=== PATIENT | female | born 1955 | race Caucasian/White ===

== ENCOUNTER 2019-07-19 11:07 | Outpatient (RCR) | payer MEDICARE, SELFPAY ==
[2019-07-19 11:35] LABS: INR 1.9; Prothrombin Time 19.9 Seconds (9.64-11.0)
== END 2019-10-17 23:59 | disposition home or self-care (01) ==
LOC: CHSLAB 11:07
PROVIDERS: Visit Provider Family Medicine Adolescent Medicine
DX: Z79.01 Long term (current) use of anticoagulants (principal)
CPT/HCPCS: 36415; 85610

== ENCOUNTER 2019-10-19 12:46 | Outpatient (RCR) | payer MEDICARE, SELFPAY ==
[2019-10-19 13:57] LABS: INR 1.8; Prothrombin Time 18.6 Seconds (9.64-11.0)
== END 2020-01-17 23:59 | disposition home or self-care (01) ==
LOC: CHSLAB 12:46
PROVIDERS: PCP Family Medicine Adolescent Medicine; Visit Provider Family Medicine Adolescent Medicine
DX: Z79.01 Long term (current) use of anticoagulants (principal)
CPT/HCPCS: 36415; 85610

== ENCOUNTER 2020-03-07 12:44 | Observation (INO) | payer MEDICARE, OTHER, SELFPAY ==
[2020-03-07] VITALS (7 sets, daily range): BP systolic 126–174; BP diastolic 72–92; PULSE 90–111; RESP 18–28; TEMP 36.2–36.8; O2SAT 94–97; BMI 37.3
--- NOTE | ~2020-03-07 | XR_ITS ---
XR chest 1V portable DATE: 03/07/2020 13:25 INDICATION: Shortness of breath, cough, right-sided chest pain TECHNIQUE: Portable AP chest on 03/07/2020 at 1328 hours COMPARISON: 11/06/2017 portable AP chest at 2113 hours FINDINGS: Normal heart size. No hilar or mediastinal enlargement. Mild infiltrate or atelectasis is s uggested at the lung bases. The lungs otherwise appear clear. No pleural effusion or pulmonary vascul ar congestion or pneumothorax. There is mild dextroscoliosis and degenerative spurring of the thoracic spine. IMPRESSION: Mild infiltrate or atelectasis in the lower lung zones Reviewed, dictated and finalized at location A.
--- NOTE | 2020-03-07 12:58 | ED.SOB ---
HPI - SOB/Dyspnea General Chief Complaint: Chest Pain Stated Complaint: cant breath heaviness in the chest right lung area Time Seen by Provider: 03/07/20 13:00 Source: patient Mode of arrival: ambulatory Limitations: no limitations History of Present Illness HPI Narrative: 64-year-old woman comes in today complaining of chest pain is worse with a deep breath cough and fullness in her right lower chest. Her symptoms are gradually getting worse. She is now having more shortness of breath with any exertion. Patient states that she has been treated for these symptoms with 2 courses of antibiotics since it started a month ago. She states that she does know if she has had fever but states that she has nausea. She has had some intermittent vomiting as well. she states that she was tested for SARS-CoV-2 on February 23 and it was negative. States the chest pain has been present for the last ten days. She said it is more or less constant and feel like someone is sitting on her chest. She states she last had a stress test in 2012. MD elicited complaint: shortness of breath, cough, pain with inspiration and chest pain Onset (ago): week(s) (4) Context: recent illness Timing: constant Severity: severe Exacerbating factors: exertion, coughing and inspiration Relieving factors: nothing Associated symptoms: pain with inspiration, cough, wheezing, orthopnea and nausea/vomiting Treatment prior to arrival: none Related Data Home oxygen amount: none Home Medications Medication Instructions Recorded Confirmed alprazolam 0.5 mg PO QID 03/07/20 03/07/20 calcium carbonate [Calcium 600] 1,200 mg PO DAILY 03/07/20 03/07/20 fluoxetine 20 mg PO DAILY 03/07/20 03/07/20 gabapentin 800 mg PO QID 03/07/20 03/07/20 hydrocodone-acetaminophen 1 - 2 tablet PO QID 03/07/20 03/07/20 [id number] acid-lutein [Centrum 1 tablet PO DAILY 03/07/20 03/07/20 Silver] progesterone micronized 200 mg PO DAILY 03/07/20 03/07/20 quetiapine 600 mg PO 03/07/20 03/07/20 warfarin 2.5 mg PO DAILY 03/07/20 03/07/20 zolpidem [Ambien] 10 mg PO 03/07/20 03/07/20 Allergies Allergy/AdvReac Type Severity Reaction Status Date / Time Contrast Media Allergy Unknown N/V, Uncoded 04/21/19 10:23 HEADACHE Review of Systems Constitutional: Constitutional: Reports chills, Reports fatigue, Reports fever(s) and Reports weakness Eyes: Eyes: Denies change in vision and Denies photophobia ENT: Denies dysphagia, Denies nasal congestion and Denies sore throat Cardiovascular: Cardiovascular: Reports chest pain, Reports rapid heart rate and Denies radiating jaw, neck or arm pain Respiratory: Respiratory: Reports as per HPI, Reports chest congestion, Reports cough, Reports dyspnea and Reports wheezing Gastrointestinal: Gastrointestinal: Denies abdominal pain, Denies diarrhea, Reports nausea and Reports vomiting Genitourinary: Genitourinary: Denies hematuria, Denies nocturia and Denies dysuria Musculoskeletal: Musculoskeletal: Reports back pain ( Chronic), Denies arthralgias and Denies joint swelling Integumentary/Breasts: Skin/Breast: Denies pruritus, Denies erythema and Denies rash Neurologic: Denies vertigo, Denies dizziness and Denies syncope Psychiatric: Psychiatric: Denies anxiety and Denies depression Hematologic/Lymphatic: Hematologic/Lymphatic: Denies easy bleeding and Denies easy bruising Allergic/Immunologic: Allergic/Immunologic: Denies lip swelling and Reports wheezing PMFSH Past Medical History Medical History Back pain Chronic, continuous use of opioids DVT (deep venous thrombosis) Hypertension Pulmonary embolus Surgical History Surgical History H/O rotator cuff surgery H/O thyroidectomy H/O tubal ligation History of appendectomy History of arthroplasty of right knee History of bladder suspension procedure Previous back surgery S/P bilater
--- NOTE | 2020-03-07 12:59 | ECG_ITS ---
Measurements Intervals [place] Rate: 117 P: 70 KS: 197 QRS: 64 QRSD: 92 T: 69 QT: 323 QTc: 451 Interpretive Statements SINUS TACHYCARDIA ANTEROSEPTAL INFARCT, AGE INDETERMINATE BASELINE WANDER- I, II, III, AVR, AVL, AVF, V4-V6 ABNORMAL ECG Electronically Signed On 03-07-2020 13:46:06 CDT by Ricardo Beck D.O.
[2020-03-07 13:24] LABS: Basophils Absolute Auto 0.04 K/mm3 (0.00-0.10); Basophils Percent Auto 0.6 % (0.0-1.0); Eosinophils Absolute Auto 0.07 K/mm3 (0.02-0.50); Eosinophils Percent Auto 1.1 % (1.0-6.0); Hematocrit 37.3 % (35.0-49.0); Hemoglobin 12.5 g/dL (12.0-15.0); Immature Granulocyte Absolute 0.01 K/mm3 (0.00-0.00); Immature Granulocyte Percent A 0.2 % (0.0-0.0); Lymphocytes Absolute Auto 2.57 K/mm3 (1.10-4.50); Lymphocytes Percent Auto 40.6 % (18.0-42.0); Mean Corpuscular HGB Conc 33.5 g/dL (32.0-36.0); Mean Corpuscular Hemoglobin 30.8 pg (27.0-31.0); Mean Corpuscular Volume 91.9 fL (78.0-102.0); Mean Platelet Volume 10.7 fl (9.2-11.8); Monocytes Absolute Auto 0.47 K/mm3 (0.10-0.90); Monocytes Percent Auto 7.4 % (2.0-11.0); Neutrophils Absolute Auto 3.2 K/mm3 (1.7-7.2); Neutrophils Percent Auto 50.1 % (50.0-70.0); Platelet Count Result 299 K/mm3 (150-420); Red Blood Count 4.06 M/mm3 (4.20-5.40); Red Cell Distribution Width 13.8 % (11.6-14.4); White Blood Count 6.3 K/mm3 (4.8-10.8)
[2020-03-07 13:40] LABS: D Dimer 0.28 mg/L (0.19-0.50); INR 1.7; Partial Thromboplastin Time 38.4 SEC (22.3-31.6); Prothrombin Time 17.2 Seconds (9.64-11.0)
[2020-03-07 13:41] LABS: Alanine Aminotransferase 31 U/L (14-59); Albumin Level 3.4 g/dL (3.4-5.0); Alkaline Phosphatase 90 U/L (46-116); Anion Gap 12.9 mmol/L (7-16); Aspartate Amino Transferase 23 U/L (15-37); Bilirubin,Total 0.3 mg/dL (0.00-1.00); Blood Urea Nitrogen 16 mg/dL (7-18); CRP 2.2 mg/dL (0.0-0.9); Calcium 9.3 mg/dL (8.5-10.1); Carbon Dioxide 29 mmol/L (21-32); Chloride 103 mmol/L (98-108); Estimated CRCL calculation 56 ml/min; Estimated Glomerular Filt Rate 49; Glucose 147 mg/dL (70-99); Osmolality Calculated 296 mOsm/kg (285-295); Potassium 3.9 mmol/L (3.5-5.1); Sodium 141 mmol/L (136-145); Total Protein 7.6 g/dL (6.4-8.2)
[2020-03-07 13:42] LABS: Troponin I < 0.02 ng/mL (0.00-0.056)
[2020-03-07 13:43] LABS: BNP 9 pg/mL (0-100); Lactic Acid Reflex 3.3 mmol/L (0.4-2.0)
[2020-03-07 13:44] LABS: Add Urine Microscopic? YES; Appearance Urine Sl Cloudy (Clear); Bilirubin Urine Negative (Negative); Blood Urine Negative (Negative); Color Urine Yellow (Yellow); Glucose Urine UA Negative (Negative); Ketones Urine Negative (Negative); Leukocyte Esterase Ur 1+ LEU/UL (Negative); Nitrate Urine Negative (Negative); Protein Urine Negative (Negative); Specific Grav Ur 1.025 (1.010-1.020); Urobilinogen Urine 0.2 mg/dL (0.2-1.0); pH Urine 5.5 (5.0-8.0)
[2020-03-07 13:51] LABS: RBC Urine 0-2 /hpf (0-2); Squamous Epithelial Cell Urine Many /hpf (Few)
[2020-03-07 13:52] LABS: Bacteria Urine 3+ /hpf; Renal Epithelial Cells Urine Moderate /hpf
[2020-03-07] MEDS: ASPIRIN 81 MG CHEWABLE TABLET 324 MG PO (14:02)
[2020-03-07] MEDS: SODIUM CHLORIDE 0.9% IV 1,000 ML 999 ML IV CONT (14:03)
--- NOTE | 2020-03-07 16:03 | PC.NURSE ---
Admitted to observation bed for rule out UT, chest pain ongoing for over a week, has been covid tested negative first week of February and had a round of abx by PMD, no improvment, dry cough, feels sob, no distress noted, no edema noted, color pale, skin warm and dry, pain in right side of chest worse with deep breath and cough, no n/v/d, oriented to room and hosptial environment
[2020-03-07 16:18] LABS: Reflex Lactic Acid Yes or No Add Lactic
[2020-03-07] MEDS: GABAPENTIN 400 MG CAPSULE 800 MG PO ×2 (17:15→20:57)
[2020-03-07] MEDS: DOXYCYCLINE HYCLATE 100 MG TABLET PO ×2 (17:15→20:58)
[2020-03-07] MEDS: SODIUM CHLORIDE 0.9% IV 1,000 ML 100 ML IV CONT (17:15)
[2020-03-07] MEDS: predniSONE 20 MG TABLET 40 MG PO (17:15)
[2020-03-07] MEDS: ALPRAZolam 0.5 MG TABLET PO ×2 (17:16→20:58)
--- NOTE | 2020-03-07 17:30 | PC.NURSE ---
EAting with no dsitress, cough occassional non productive,
[2020-03-07] MEDS: QUEtiapine FUMARATE 100 MG TABLET 600 MG PO (20:56)
[2020-03-07] MEDS: ZOLPIDEM TARTRATE 5 MG TABLET 10 MG PO (20:57)
[2020-03-07] MEDS: ALBUTEROL SULFATE (*SP) INHALER 4 PUFF INHALATION (20:58)
--- NOTE | 2020-03-07 21:17 | PC.NURSE ---
pt has no c/o sob at this time, requests pain med for chronic back pain, given two pillows and fan brought from home by , lab here for draw
[2020-03-07 21:22] LABS: Lactic Acid Reflex 2.2 mmol/L (0.4-2.0); Troponin I < 0.02 ng/mL (0.00-0.056)
--- NOTE | 2020-03-07 22:30 | PC.NURSE ---
pt is sinus tach on monitor, no s/sx of distress, resting in bed
[2020-03-07 22:45] LABS: SARS-CoV-2 RNA PCR Negative
--- NOTE | 2020-03-07 23:45 | PC.NURSE ---
Pt moved to rm 227. Covid 19 Neg.
[2020-03-08] VITALS: BP 142/91; PULSE 114; RESP 20; TEMP 35.9; O2SAT 94
--- NOTE | 2020-03-08 01:24 | PC.NURSE ---
Pt requested food to eat. Stated she was hungry. Reap deep & even. No NV. Denies cheast pain Telemetry SR, ST. No cough heard @ this time.
[2020-03-08 02:02] LABS: Troponin I < 0.02 ng/mL (0.00-0.056)
[2020-03-08 03:53] VITALS: BP 121/76; PULSE 96; RESP 20; TEMP 36.4; O2SAT 93
--- NOTE | 2020-03-08 03:55 | PC.NURSE ---
Sleeping, resp even. VS taken. IV continues 100ml hr. Telemetry continues.
[2020-03-08] MEDS: SODIUM CHLORIDE 0.9% IV 1,000 ML 100 ML IV CONT (04:05)
[2020-03-08 05:27] LABS: Basophils Absolute Auto 0.02 K/mm3 (0.00-0.10); Basophils Percent Auto 0.2 % (0.0-1.0); Hematocrit 35.8 % (35.0-49.0); Hemoglobin 11.8 g/dL (12.0-15.0); Immature Granulocyte Absolute 0.03 K/mm3 (0.00-0.00); Immature Granulocyte Percent A 0.4 % (0.0-0.0); Lymphocytes Absolute Auto 1.78 K/mm3 (1.10-4.50); Lymphocytes Percent Auto 21.6 % (18.0-42.0); Mean Corpuscular Hemoglobin 30.6 pg (27.0-31.0); Mean Corpuscular Volume 92.7 fL (78.0-102.0); Mean Platelet Volume 10.8 fl (9.2-11.8); Monocytes Absolute Auto 0.65 K/mm3 (0.10-0.90); Monocytes Percent Auto 7.9 % (2.0-11.0); Neutrophils Absolute Auto 5.8 K/mm3 (1.7-7.2); Neutrophils Percent Auto 69.9 % (50.0-70.0); Platelet Count Result 298 K/mm3 (150-420); Red Blood Count 3.86 M/mm3 (4.20-5.40); Red Cell Distribution Width 13.8 % (11.6-14.4); White Blood Count 8.2 K/mm3 (4.8-10.8)
[2020-03-08 05:46] LABS: Alanine Aminotransferase 26 U/L (14-59); Albumin Level 3.1 g/dL (3.4-5.0); Alkaline Phosphatase 78 U/L (46-116); Anion Gap 12.4 mmol/L (7-16); Aspartate Amino Transferase 20 U/L (15-37); Bilirubin,Total 0.4 mg/dL (0.00-1.00); Blood Urea Nitrogen 17 mg/dL (7-18); Calcium 9.2 mg/dL (8.5-10.1); Carbon Dioxide 27 mmol/L (21-32); Chloride 106 mmol/L (98-108); Estimated CRCL calculation 63 ml/min; Estimated Glomerular Filt Rate 54; Glucose 118 mg/dL (70-99); Osmolality Calculated 294 mOsm/kg (285-295); Potassium 4.4 mmol/L (3.5-5.1); Sodium 141 mmol/L (136-145); Total Protein 6.9 g/dL (6.4-8.2)
[2020-03-08 05:51] LABS: Troponin I < 0.02 ng/mL (0.00-0.056)
[2020-03-08] MEDS: ALBUTEROL SULFATE (*SP) INHALER 4 PUFF INHALATION (06:26)
[2020-03-08 07:35] VITALS: BP 142/75; PULSE 88; RESP 18; TEMP 36; O2SAT 95
[2020-03-08] MEDS: GABAPENTIN 400 MG CAPSULE 800 MG PO (09:09)
[2020-03-08] MEDS: predniSONE 20 MG TABLET 40 MG PO (09:09)
[2020-03-08] MEDS: FLUoxetine HCL 10 MG CAPSULE 20 MG PO (09:10)
[2020-03-08] MEDS: CALCIUM CARBONATE (OSCAL) 500 MG TABLET 1000 MG PO (09:10)
[2020-03-08] MEDS: THERAPEUTIC MULTIVITAMINS/MINERALS TAB (*BKC) 1 TABLET PO (09:11)
[2020-03-08] MEDS: WARFARIN (*PBKC) 2.5 MG TABLET PO (09:11)
[2020-03-08] MEDS: DOXYCYCLINE HYCLATE 100 MG TABLET PO (09:11)
[2020-03-08] MEDS: ALPRAZolam 0.5 MG TABLET PO (09:12)
--- NOTE | 2020-03-08 11:13 | PM.SD ---
Same Day Admit/Disch: HPI History of Present Illness Chief complaint: ACS (R/O GA) Narrative: Abi Campbell is a 64 year old female That presented to the ED yesterday with complaints of and uncontrollable cough with chest discomfort. Patient has a past medical history of back pain, DVTs, hypertension, PE and chronic continuous use of opioids. according to patient she visited her primary care physician's office Dr. Brennan complaining of cough chest discomfort at that time she was given azithromycin x6 days. she called her primary care physician back and informed him that symptoms have worsened. At that time he put on Levaquin times 10 days. Before she could complete the Levaquin should return to the [facility] ED. Patient was admitted to rule out chest pains. vital signs 142/75, 88, 18, 96.8, 95% on air While in the ED troponins was collected negative x3, patient's creatinine was slightly elevated not significant. UA did indicate leukocytes WBCs and bacteria, her COVID-19 was negative her chest x-ray was unremarkable, lactic acid slightly increased at 2.2 a UA and blood culture were collected in her EKG indicated sinus tach with a heart rate of 117. Patient was given albuterol, with steroids and antibiotic. Her condition has improved today. Patient able to tolerate all meals , slept well and ambulate at baseline. Patient denies SOB, CP, palpitation, extremity numbness, lightheadness, dizziness, constipation, diarrhea, chills or fever. Patient agree that they are ready for discharge and discharge plan. [facility] Past Medical History Medical History Back pain Chronic, continuous use of opioids DVT (deep venous thrombosis) Hypertension Pulmonary embolus Surgical History Surgical History H/O rotator cuff surgery H/O thyroidectomy H/O tubal ligation History of appendectomy History of arthroplasty of right knee History of bladder suspension procedure Previous back surgery S/P bilateral cataract extraction S/P cholecystectomy S/P insertion of intrathecal pump removed 2012 Spinal cord stimulator status removed 2012 Family History Family History (Updated 10/13/14 @ 13:44 by DOCTOR UNKNOWN) Other Cerebrovascular accident Diabetes mellitus Family history of cardiovascular disease Family history of malignant neoplasm Family history of tuberculosis Hypertension Social History Social History (Updated 03/07/20 @ 13:24 by Vimal Berkowitz MD) Smoking status: Never smoker Second hand tobacco smoke exposure: No Alcohol intake: never Substance use: never Living arrangements: with family Gender identity (if verbalized by the patient): Female Spiritual care concerns: No Same Day Admit/Disch: Med Pre-admit Medications Home Medications Medication Instructions Recorded Confirmed Type alprazolam 0.5 mg PO QID 03/07/20 03/07/20 History calcium carbonate [Calcium 600] 1,200 mg PO DAILY 03/07/20 03/07/20 History fluoxetine 20 mg PO DAILY 03/07/20 03/07/20 History gabapentin 800 mg PO QID 03/07/20 03/07/20 History hydrocodone-acetaminophen 1 - 2 tablet PO QID 03/07/20 03/07/20 History [id number] acid-lutein [Centrum 1 tablet PO DAILY 03/07/20 03/07/20 History Silver] progesterone micronized 200 mg PO DAILY 03/07/20 03/07/20 History quetiapine 600 mg PO HS 03/07/20 03/07/20 History warfarin 2.5 mg PO DAILY 03/07/20 03/07/20 History zolpidem [Ambien] 10 mg PO HS 03/07/20 03/07/20 History Exam Narrative: Exam Narrative: General: A well-developed, well-nourished male sitting up in bed no acute distress. HEENT: Normocephalic, atraumatic. PERRL, EOMI. Sclerae anicteric. Oral mucosa moist. Oropharynx clear. Neck: Supple. Respiratory: Lungs are clear to auscultation bilaterally. Cardiovascular: Regular rate and rhythm with S1-S2. Gastrointestinal: Abdomen is soft, nontender, and nondistend
--- NOTE | 2020-03-08 12:35 | PC.NURSE ---
discharged to home with discharge instructions, belongings returned, inhaler sent home, denies questions
--- NOTE | 2020-03-09 06:57 | P.PNCROSS_ITS ---
Event Note Event Note Event Note: For this patient encounter, I reviewed the THREAD LASTER or PA documentation, treatment plan, and medical decision making; and I had [id number] time with this patient.
--- NOTE | 2020-03-09 06:57 | PM.EVENT ---
Event Note Event Note Event Note: For this patient encounter, I reviewed the BELL MAKER or PA documentation, treatment plan, and medical decision making; and I had [id number] time with this patient.
== END 2020-03-08 12:35 | disposition home or self-care (01) ==
LOC: CHSED 14:55 → CHS2ND 15:08
PROVIDERS: Admitting Provider Emergency Medicine; Emergency Provider Emergency Medicine; PCP Family Medicine Adolescent Medicine; Visit Provider Emergency Medicine
DX: J40 Bronchitis, not specified as acute or chronic (principal); E86.0 Dehydration; N39.0 Urinary tract infection, site not specified; R06.02 Shortness of breath; I10 Essential (primary) hypertension; M54.9 Dorsalgia, unspecified; F11.90 Opioid use, unspecified, uncomplicated; Z20.828 Contact with and (suspected) exposure to other viral communicable diseases; Z79.01 Long term (current) use of anticoagulants; Z86.718 Personal history of other venous thrombosis and embolism; Z86.711 Personal history of pulmonary embolism
CPT/HCPCS: 36415; 71045; 80053; 81001; 83605; 83880; 84484; 85025; 85380; 85610; 85730; 86140; 87040; 87086; 87635; 93005; 96360; 96361; 99285; A9270; C9803; G0378; J7030; J7512; U0003

== ENCOUNTER 2020-03-11 10:28 | Outpatient (CLI) | payer MEDICARE, SELFPAY ==
[2020-03-11 10:48] LABS: Hematocrit 38.7 % (35.0-49.0); Hemoglobin 12.7 g/dL (12.0-15.0)
[2020-03-11 10:55] LABS: INR 1.8; Prothrombin Time 18.1 Seconds (9.64-11.0)
[2020-03-11 11:24] LABS: Anion Gap 13.2 mmol/L (7-16); Blood Urea Nitrogen 29 mg/dL (7-18); Calcium 9.3 mg/dL (8.5-10.1); Carbon Dioxide 27 mmol/L (21-32); Chloride 104 mmol/L (98-108); Estimated Glomerular Filt Rate 37; Glucose 178 mg/dL (70-99); Osmolality Calculated 299 mOsm/kg (285-295); Potassium 4.2 mmol/L (3.5-5.1); Sodium 140 mmol/L (136-145)
== END 2020-03-11 10:29 | disposition home or self-care (01) ==
LOC: CHSLAB 10:33
PROVIDERS: PCP Family Medicine Adolescent Medicine; Visit Provider Nurse Practitioner
DX: Z79.01 Long term (current) use of anticoagulants (principal); Z86.711 Personal history of pulmonary embolism; R73.01 Impaired fasting glucose; G62.9 Polyneuropathy, unspecified
CPT/HCPCS: 36415; 80048; 83036; 85014; 85018; 85610

== ENCOUNTER 2020-07-12 09:57 | Outpatient (RCR) | payer MEDICARE, SELFPAY ==
[2020-06-08 16:20] LABS: INR 2.2; Prothrombin Time 21.8 Seconds (9.64-11.0)
[2020-07-12 10:27] LABS: INR 2.1; Prothrombin Time 20.9 Seconds (9.64-11.0)
== END 2020-09-06 23:59 | disposition home or self-care (01) ==
LOC: CHSLAB 09:57
PROVIDERS: PCP Family Medicine Adolescent Medicine; Visit Provider Family Medicine Adolescent Medicine
DX: Z79.01 Long term (current) use of anticoagulants (principal); Z86.711 Personal history of pulmonary embolism
CPT/HCPCS: 36415; 85610

== ENCOUNTER 2020-09-11 12:44 | Outpatient (RCR) | payer MEDICARE, SELFPAY ==
[2020-09-11 13:07] LABS: INR 1.8; Prothrombin Time 19.5 Seconds (9.50-12.10)
== END 2020-12-10 23:59 | disposition home or self-care (01) ==
LOC: CHSLAB 12:44
PROVIDERS: PCP Family Medicine Adolescent Medicine; Visit Provider Family Medicine Adolescent Medicine
DX: Z79.01 Long term (current) use of anticoagulants (principal); Z86.711 Personal history of pulmonary embolism
CPT/HCPCS: 36415; 85610

== ENCOUNTER 2020-11-17 14:31 | Outpatient (CLI) | payer MEDICARE, OTHER, SELFPAY ==
--- NOTE | ~2020-11-17 | XR_ITS ---
EXAMINATION: XR chest 2V 11/17/2020 14:57 INDICATION: Dyspnea. PROCEDURE: 2 view chest COMPARISON: Comparison to multiple prior studies sequentially, with oldest reviewed study dated 02/07. FINDINGS: The lungs are clear. The cardiomediastinal silhouette is within normal limits. There are no pleural effusions. There is no pneumothorax suspected. IMPRESSION: 1: NO ACUTE CARDIOPULMONARY DISEASE. Reviewed, dictated and finalized at location B.
[2020-11-17 14:51] LABS: Basophils Absolute Auto 0.04 K/mm3 (0.00-0.10); Basophils Percent Auto 0.5 % (0.0-1.0); Eosinophils Absolute Auto 0.07 K/mm3 (0.02-0.50); Eosinophils Percent Auto 0.9 % (1.0-6.0); Hematocrit 40.4 % (35.0-49.0); Hemoglobin 13.4 g/dL (12.0-15.0); Immature Granulocyte Absolute 0.02 K/mm3 (0.00-0.00); Immature Granulocyte Percent A 0.2 % (0.0-0.0); Lymphocytes Absolute Auto 3.17 K/mm3 (1.10-4.50); Lymphocytes Percent Auto 38.9 % (18.0-42.0); Mean Corpuscular HGB Conc 33.2 g/dL (32.0-36.0); Mean Corpuscular Volume 90.6 fL (78.0-102.0); Mean Platelet Volume 11.3 fl (9.2-11.8); Monocytes Absolute Auto 0.77 K/mm3 (0.10-0.90); Monocytes Percent Auto 9.4 % (2.0-11.0); Neutrophils Absolute Auto 4.1 K/mm3 (1.7-7.2); Neutrophils Percent Auto 50.1 % (50.0-70.0); Platelet Count Result 238 K/mm3 (150-420); Red Blood Count 4.46 M/mm3 (4.20-5.40); Red Cell Distribution Width 13.4 % (11.6-14.4); White Blood Count 8.2 K/mm3 (4.8-10.8)
[2020-11-17 14:58] LABS: INR 1.6; Prothrombin Time 16.5 Seconds (9.50-12.10)
[2020-11-17 14:59] LABS: Hemoglobin A1C 6.1 % (<5.7)
[2020-11-17 15:21] LABS: Alanine Aminotransferase 50 U/L (14-59); Alkaline Phosphatase 97 U/L (46-116); Anion Gap 9 mmol/L (8-16); Aspartate Amino Transferase 26 U/L (15-37); Bilirubin,Total 0.4 mg/dL (0.00-1.00); Blood Urea Nitrogen 19 mg/dL (7-18); Calcium 9.7 mg/dL (8.5-10.1); Carbon Dioxide 32 mmol/L (21-32); Chloride 105 mmol/L (98-108); Estimated Glomerular Filt Rate 52; Glucose 125 mg/dL (70-99); Osmolality Calculated 305 mOsm/kg (285-295); Potassium 4.4 mmol/L (3.5-5.1); Sodium 146 mmol/L (136-145); Thyroid Stimulating Hormone 0.97 uIU/mL (0.36-3.74); Total Protein 7.4 g/dL (6.4-8.2)
[2020-11-17 15:50] LABS: Erythrocyte Sedimentation Rate 11 mm/hr (0-20)
== END 2020-11-17 14:32 | disposition home or self-care (01) ==
LOC: CHSLAB 14:34
PROVIDERS: PCP Family Medicine Adolescent Medicine; Visit Provider Family Medicine Adolescent Medicine
DX: R06.00 Dyspnea, unspecified (principal); R53.83 Other fatigue; N21.9 Calculus of lower urinary tract, unspecified; R73.01 Impaired fasting glucose; Z79.01 Long term (current) use of anticoagulants; Z86.711 Personal history of pulmonary embolism
CPT/HCPCS: 36415; 71046; 80053; 83036; 84443; 85025; 85610; 85652

== ENCOUNTER 2020-12-14 09:33 | Outpatient (CLI) | payer MEDICARE, OTHER, SELFPAY ==
[2020-12-14 10:05] LABS: INR 1.7; Prothrombin Time 20.1 Seconds (11.1-14.7)
[2020-12-14 10:20] LABS: Troponin I < 0.012 ng/mL (0.000-0.034)
== END 2020-12-14 09:34 | disposition home or self-care (01) ==
LOC: ANHLAB 09:39
PROVIDERS: PCP Family Medicine Adolescent Medicine; Visit Provider Internal Medicine Cardiovascular Disease
DX: R07.89 Other chest pain (principal); Z79.01 Long term (current) use of anticoagulants
CPT/HCPCS: 36415; 84484; 85610

== ENCOUNTER → 2020-12-18 04:39 | Outpatient (CLI) | payer MEDICARE, OTHER, SELFPAY ==
[2020-12-18 19:57] LABS: SARS-CoV-2 RNA PCR Negative
== END ==
PROVIDERS: PCP Family Medicine Adolescent Medicine; Visit Provider Internal Medicine Cardiovascular Disease
DX: Z01.812 Encounter for preprocedural laboratory examination (principal); Z20.822 Contact with and (suspected) exposure to COVID-19
CPT/HCPCS: C9803; U0003; U0005

== ENCOUNTER 2020-12-21 01:26 | Day surgery (SDC) | payer MEDICARE, OTHER, SELFPAY ==
[2020-12-20 18:56] VITALS: BMI 36.6
[2020-12-21] VITALS (10 sets, daily range): BP systolic 117–143; BP diastolic 73–87; PULSE 79–98; RESP 11–21; TEMP 35.7–36.2; O2SAT 90–98; BMI 36.8
[2020-12-21 08:04] LABS: Basophils Percent Auto 0.1 % (0.2-1.2); Hematocrit 41.6 % (37.0-47.0); Hemoglobin 13.9 g/dL (12.0-15.0); Immature Granulocyte Absolute 0.04 K/mm3 (0.00-0.031); Immature Granulocyte Percent A 0.5 % (0-0.5); Lymphocytes Absolute Auto 1.04 K/mm3 (0.9-3.2); Lymphocytes Percent Auto 12.6 % (18.3-44.2); Mean Corpuscular HGB Conc 33.4 g/dl (32-36); Mean Corpuscular Hemoglobin 30.3 pg (26-34); Mean Corpuscular Volume 90.8 fl (80-100); Mean Platelet Volume 11.1 fl (7.4-10.4); Monocytes Absolute Auto 0.1 K/mm3 (0.1-0.6); Monocytes Percent Auto 1.3 % (2.6-8.5); Neutrophils Absolute Auto 7.1 K/mm3 (1.3-6.7); Neutrophils Percent Auto 85.5 % (45.5-73.1); Platelet Count Result 249 k/mm3 (150-375); Red Blood Count 4.58 M/mm3 (4.2-5.4); Red Cell Distribution Width 13.3 % (11.5-14.5); White Blood Count 8.3 K/mm3 (4.5-10.0)
[2020-12-21 08:13] LABS: Anion Gap 9 mmol/L (8-16); Blood Urea Nitrogen 21 mg/dL (7-17); Calcium 10.2 mg/dL (8.4-10.2); Carbon Dioxide 28 mmol/L (22-30); Chloride 105 mmol/L (98-107); Estimated CRCL calculation 70 ml/min; Estimated Glomerular Filt Rate > 60; Glucose 159 mg/dL (65-105); Potassium 4.5 mmol/L (3.4-5.0); Sodium 142 mmol/L (137-145)
[2020-12-21 08:21] LABS: Prothrombin Time 13.8 Seconds (11.1-14.7)
--- NOTE | 2020-12-21 10:28 | P.PCNCC_ITS ---
Cardiac Cath Procedure Note Date of procedure:: 12/21/20 Performing physician:: Krzysztof Agrawal MD date of service December 21, 2020 Indication:: chest pain and abnormal stress test Brief clinical history:: This is 65-year-old female with past history of DVT, anxiety was evaluated for chest pain. underwent stress testing that was abnormal with ischemia in the anterior wall. Procedure Procedure performed:: 1-Moderate sedation that started at 9:47 a.m. and ended at at 10:11 a.m. with total duration 24 minutesb using 2mg of Versed and 50mcg fentanyl. The registered nurse was oliverio griggs 2-Selective left and right coronary angiogram. 3-Left heart catheterization with measurement of LVEDP and measurement of gradient across aortic valve. 3- LV angiogram. 4-Right common femoral arterial angiogram. 5-Deployment of 6 Azerbaijani Angio-Seal. Sedation/Medication given:: Moderate sedation. Access site:: Right common femoral artery. Estimated blood loss:: 10cc Procedure note:: After informed consent patient was brought in to phlebotomist lab assistant with the was draped and prepped in usual manner. Moderate sedation was given and the right groin was infiltrated using 1% lidocaine. Five Azerbaijani sheath was obtained using micropuncture needle and the modified Seldinger technique. Selective left coronary angiogram was done using JL4 catheter with the tip of the catheter placed in the left main coronary artery. Selective right coronary angiogram was done using JR4 catheter with the tip of the catheter placed to the right coronary artery. After that 5 Azerbaijani pigtail catheter was advanced across the aortic valve into the left ventricle with measurement of LVEDP and measurement of gradient across aortic valve. LV angiogram was done as well. Right common femoral arterial angiogram was done. Findings:: 1- left coronary artery is a large artery that divides into large LAD, large circumflex artery. Left main is Free of disease. 2- left anterior descending artery is a large artery that runs and wraps around the apex. It is very large proximally and then tapers smoothly and bifurcates into a large LAD and large Diagonal branch. Ostial diagonal branch 30%. 3- leftcircumflex artery is a large artery And free of disease. Large OM1 and OM2 distally. Free of disease. 4- right coronary artery is Large artery and dominant and free of disease. 5- LVEDP was 25 mm Hgand no gradient across aortic valve. 5- LV angiogram shows normal ejection fraction and normal ascending aorta diameter. 6- opening arterial pressure was 130/80 and closing pressure was 110/70. 7- right femoral artery angiogram shows no significant disease in the right common femoral artery. Conclusion:: Minimal coronary irregularity. Assessment and Plan Additional Plan 1- Continue aggressive risk factor modification for CAD. 2- Arrange for 72 hour Holter monitor to rule out other arrhythmias. Patient has frequent PVCs. The monitor would help quantify the burden of the PVCs. Also rule out AFib.
--- NOTE | 2020-12-21 10:28 | WPDHPUPDATE1 ---
History and Physical Update Update Date/Time: 12/21/20 9 a.m. History and Physical has been reviewed, including an updated exam of the patient. There are NO changes in the patient's condition. Risks, benefits, and alternatives have been discussed and questions answered. Patient agrees to proceed with procedure.
--- NOTE | 2020-12-21 10:28 | WPDMODSED ---
Moderate Sedation Note-Pt Data Patient Data Allergies Allergy/AdvReac Type Severity Reaction Status Date / Time Contrast Media Allergy Unknown N/V, Uncoded 12/20/20 18:39 HEADACHE Home Medications Medication Instructions Recorded Confirmed Type Centrum Silver 1 tablet PO DAILY 03/07/20 12/21/20 History alprazolam 0.5 mg PO QID 03/07/20 12/21/20 History calcium carbonate [Calcium 600] 1,200 mg PO DAILY 03/07/20 12/21/20 History fluoxetine 20 mg PO DAILY 03/07/20 12/21/20 History gabapentin 800 mg PO TID 03/07/20 12/21/20 History hydrocodone-acetaminophen 1 - 2 tablet PO QID 03/07/20 12/21/20 History progesterone micronized 200 mg PO DAILY 03/07/20 12/21/20 History quetiapine 600 mg PO HS 03/07/20 12/21/20 History warfarin 2.5 mg PO DAILY 03/07/20 12/20/20 History zolpidem [Ambien] 10 mg PO HS 03/07/20 12/21/20 History albuterol sulfate 1 puff INHALATION QID PRN #6.7 gm 03/08/20 12/20/20 Rx aspirin [Adult Aspirin EC Low 81 mg PO DAILY 12/20/20 12/21/20 History Strength] mirtazapine 45 mg PO HS 12/20/20 12/21/20 History Current Medications: Active Medications Sodium Chloride (Normal Saline Iv) 500 mls @ 100 mls/hr IV CONT .Q5H MAXIMILIAN Sedation/Anesthesia: No previous sedation/anesthesia problems (including family history). [facility] Past Medical History Medical History Back pain Chronic, continuous use of opioids DVT (deep venous thrombosis) Hypertension Pulmonary embolus Surgical History Surgical History H/O rotator cuff surgery H/O thyroidectomy H/O tubal ligation History of appendectomy History of arthroplasty of right knee History of bladder suspension procedure Previous back surgery S/P bilateral cataract extraction S/P cholecystectomy S/P insertion of intrathecal pump removed 2012 Spinal cord stimulator status removed 2012 Family History Family History Other Cerebrovascular accident Diabetes mellitus Family history of cardiovascular disease Family history of malignant neoplasm Family history of tuberculosis Hypertension Social History Social History Smoking status: Never smoker Second hand tobacco smoke exposure: No Alcohol intake: never Substance use: never Substance use type: does not use Living arrangements: with family Additional living arrangements comments: LIVES W/ , SONYA GUTIÉRREZ. Gender identity (if verbalized by the patient): Female Spiritual care concerns: No Mod Sed Physical Exam Physical Exam Pre Procedural Exam: Normal: Appearance, Eyes, Ears, Nose, Neck, Throat, Airway, Lungs, Heart Size, Heart Rate, Heart Rhythm, Neuro Exam, Abdomen, Liver, Kidneys, Spleen, Breasts, Genitalia, Extremities and Skin Hours since solid foods: 8 Hours since liquid intake: 8 Internal Medicine - PN: Obj Da Vital Signs Vital Signs: Vital Signs - 24 hr 12/21/20 08:31 Temperature 35.7 C L Pulse Rate 94 Respiratory Rate 17 Blood Pressure 128/79 Pulse Oximetry 94 Meds/Results Medications: Active Medications Generic Name Dose Route Start Last Admin Trade Name Freq PRN Reason Stop Dose Admin Sodium Chloride 500 mls @ 100 mls/hr 12/21/20 07:30 Normal Saline Iv IV CONT .Q5H MAXIMILIAN Labs CBC & Chem 7: 12/21/20 07:40 12/21/20 07:40 Labs: Laboratory Results - last 24 hr 12/21/20 12/21/20 12/21/20 07:40 07:40 07:40 WBC 8.3 RBC 4.58 Hgb 13.9 Hct 41.6 MCV 90.8 MCH 30.3 MCHC 33.4 RDW 13.3 Plt Count 249 MPV 11.1 H Immature Gran % (Auto) 0.5 Neut % (Auto) 85.5 H Lymph % (Auto) 12.6 L Blaine % (Auto) 1.3 L Eos % (Auto) 0.0 Baso % (Auto) 0.1 L Lymph # (Auto) 1.04 Blaine # (Auto) 0.1 Eos # (Auto) 0.0 Baso # (Auto) 0.0 Abs Immat Gran
--- NOTE | 2020-12-21 13:50 | SUR.PHASEII ---
Iv d/c'd from right forearm, catheter intact. No redness or swelling at the site. Right groin access site with drsg intact with no signs of redness, swelling, drainage or hematoma. Right pedal pulse remains strong, 3+, as prior to procedure. Discharge instructions reviewed with patient with stated understanding. Pt discharged via wheelchair [facility] for placement of telemetry halter monitor. Pt's spouse is with the patient and will drive the patient home after appointment in Dr Agrawal's office.
== END 2020-12-21 13:45 | disposition home or self-care (01) ==
PROVIDERS: PCP Family Medicine Adolescent Medicine; Visit Provider Internal Medicine Cardiovascular Disease
PROC: 4A023N7 Measurement of Cardiac Sampling and Pressure, Left Heart, Percutaneous Approach (ICD-10-PCS; CPT 93452; principal; 2020-12-21 09:00)
DX: R94.39 Abnormal result of other cardiovascular function study (principal); R07.89 Other chest pain; I49.3 Ventricular premature depolarization; Z86.718 Personal history of other venous thrombosis and embolism; Z79.01 Long term (current) use of anticoagulants; I10 Essential (primary) hypertension; Z86.711 Personal history of pulmonary embolism; Z79.82 Long term (current) use of aspirin; F41.8 Other specified anxiety disorders; R06.00 Dyspnea, unspecified
CPT/HCPCS: 36415; 80048; 85025; 85610; 93458; C1760; C1887; C1894; G0269; J1644; J2250; J3010; J7040

== ENCOUNTER 2021-02-08 09:58 | Outpatient (CLI) | payer MEDICARE, OTHER, SELFPAY ==
--- NOTE | 2021-02-12 12:12 | WPDPFTINT ---
PFT Procedure Performed PFT Procedure Performed Plethysmography (Lung Vol) Spirometry w/o Bronchodil PFT Interpretation DOS: 02/08/2021 REQUESTING: Dr Krzysztof Agrawal REASON FOR TESTING: dyspnea on exertion PULMONARY FUNCTION TESTS results were not completely reproducible as the patient had shortness of breath throughout the testing. DLCO was not obtainable. Patient could not perform of breath hold or generate a strong inspiratory peak flow after multiple attempts with maximal coaching. Spirometry: FEV1 is 30% predicted, 0.8 L severely decreased. FVC is 36% predicted. The FEV1/ FVC ratio was reduced 65% predicted. No bronchodilator was given. Lung volumes: Total lung capacity is reduced to 58% predicted, moderately decreased. Residual volume is 84% predicted. The RV/TLC ratio is increased at 57% consistent with air trapping. The ERV is severely reduced 21% predicted and this is likely due to the elevated body mass index. Airway resistance is increased 175%. Diffusion: DLCO not obtainable. Flow volume loop: Not reproducible. IMPRESSION: Severe obstructive ventilatory impairment with air trapping and moderate restriction. no bronchodilator was given. Results are not reproducible. Patient was not able to perform maneuver for DLCO, could not perform the breath hold or generate adequate inspiratory peak flow. Clinical correlation is advised. Leonila Montelongo MD
== END 2021-02-08 09:59 | disposition home or self-care (01) ==
PROVIDERS: PCP Family Medicine Adolescent Medicine; Visit Provider Internal Medicine Cardiovascular Disease
DX: R06.00 Dyspnea, unspecified (principal); R94.2 Abnormal results of pulmonary function studies
CPT/HCPCS: 94375; 94726

== ENCOUNTER 2021-04-11 14:50 | Outpatient (RCR) | payer MEDICARE, OTHER, SELFPAY ==
[2021-01-25 10:45] LABS: INR 1.8; Prothrombin Time 18.5 Seconds (9.50-12.10)
[2021-03-02 10:37] LABS: INR 1.6; Prothrombin Time 16.6 Seconds (9.50-12.10)
[2021-04-11 15:11] LABS: Prothrombin Time 20.9 Seconds (9.50-12.10)
== END 2021-04-25 23:59 | disposition home or self-care (01) ==
LOC: CHSLAB 14:50
PROVIDERS: PCP Family Medicine Adolescent Medicine; Visit Provider Family Medicine Adolescent Medicine
DX: Z79.01 Long term (current) use of anticoagulants (principal); Z86.711 Personal history of pulmonary embolism
CPT/HCPCS: 36415; 85610

== ENCOUNTER 2021-07-27 13:33 | Outpatient (RCR) | payer MEDICARE, SELFPAY ==
[2021-05-25 15:49] LABS: INR 2.1; Prothrombin Time 21.4 Seconds (9.50-12.10)
[2021-07-27 13:58] LABS: INR 1.9; Prothrombin Time 19.8 Seconds (9.50-12.10)
== END 2021-08-23 23:59 | disposition home or self-care (01) ==
LOC: CHSLAB 13:33
PROVIDERS: PCP Family Medicine Adolescent Medicine; Visit Provider Family Medicine Adolescent Medicine
DX: Z79.01 Long term (current) use of anticoagulants (principal); Z86.711 Personal history of pulmonary embolism
CPT/HCPCS: 36415; 85610

== ENCOUNTER 2021-09-06 12:35 | Outpatient (RCR) | payer MEDICARE, SELFPAY ==
[2021-09-06 13:12] LABS: INR 2.1; Prothrombin Time 21.3 Seconds (9.50-12.10)
== END 2021-12-05 23:59 | disposition home or self-care (01) ==
LOC: CHSLAB 12:35
PROVIDERS: PCP Family Medicine Adolescent Medicine; Visit Provider Family Medicine Adolescent Medicine
DX: Z79.01 Long term (current) use of anticoagulants (principal); Z86.711 Personal history of pulmonary embolism
CPT/HCPCS: 36415; 85610

== ENCOUNTER 2022-01-05 09:16 | Outpatient (CLI) | payer MEDICARE, SELFPAY ==
[2022-01-05 09:56] LABS: Basophils Absolute Auto 0.06 K/mm3 (0.00-0.10); Basophils Percent Auto 0.7 % (0.0-1.0); Eosinophils Absolute Auto 0.08 K/mm3 (0.02-0.50); Eosinophils Percent Auto 0.9 % (1.0-6.0); Hematocrit 41.7 % (35.0-49.0); Hemoglobin 13.7 g/dL (12.0-15.0); Immature Granulocyte Absolute 0.03 K/mm3 (0.00-0.00); Immature Granulocyte Percent A 0.4 % (0.0-0.0); Lymphocytes Absolute Auto 2.61 K/mm3 (1.10-4.50); Mean Corpuscular HGB Conc 32.9 g/dL (32.0-36.0); Mean Corpuscular Hemoglobin 30.8 pg (27.0-31.0); Mean Corpuscular Volume 93.7 fL (78.0-102.0); Mean Platelet Volume 11.5 fl (9.2-11.8); Monocytes Absolute Auto 0.83 K/mm3 (0.10-0.90); Monocytes Percent Auto 9.8 % (2.0-11.0); Neutrophils Absolute Auto 4.8 K/mm3 (1.7-7.2); Neutrophils Percent Auto 57.2 % (50.0-70.0); Platelet Count Result 248 K/mm3 (150-420); Red Blood Count 4.45 M/mm3 (4.20-5.40); Red Cell Distribution Width 13.6 % (11.6-14.4); White Blood Count 8.4 K/mm3 (4.8-10.8)
[2022-01-05 10:05] LABS: Add Urine Microscopic? NO; Appearance Urine Clear (Clear); Bilirubin Urine Negative (Negative); Blood Urine Negative (Negative); Color Urine Yellow (Yellow); Glucose Urine UA Negative (Negative); Ketones Urine Negative (Negative); Leukocyte Esterase Ur Negative (Negative); Nitrate Urine Negative (Negative); Protein Urine Negative (Negative); Specific Grav Ur >= 1.030 (1.010-1.020); Urobilinogen Urine 0.2 mg/dL (0.2-1.0); pH Urine 5.5 (5.0-8.0)
[2022-01-05 10:10] LABS: INR 2.4; Prothrombin Time 24.6 Seconds (9.50-12.10)
[2022-01-05 10:15] LABS: Anion Gap 9 mmol/L (8-16); Blood Urea Nitrogen 20 mg/dL (7-18); Calcium 9.5 mg/dL (8.5-10.1); Carbon Dioxide 28 mmol/L (21-32); Chloride 103 mmol/L (98-108); Estimated Glomerular Filt Rate 48; Glucose 106 mg/dL (70-99); Osmolality Calculated 292 mOsm/kg (285-295); Phosphorus 3.5 mg/dL (2.6-4.7); Potassium 4.2 mmol/L (3.5-5.1); Sodium 140 mmol/L (136-145)
[2022-01-05 10:19] LABS: Creatinine Urine 222.19 mg/dL (40-278); Total Protein Urine Random 31.6 mg/dL (0.0-11.9); Ur Ttl Prot Creatinine Ratio 0.14 mg/mg (0-0.20)
[2022-01-05 11:05] LABS: Erythrocyte Sedimentation Rate 8 mm/hr (0-20)
[2022-01-08 19:34] LABS: Complement Total CH50 >60 U/mL (31-60)
[2022-01-09 06:00] LABS: Kappa\\Lambda Light Chains 1.05 (0.26-1.65); Lambda Light Chain 16.3 mg/L (5.7-26.3)
[2022-01-09 11:45] LABS: Complement C3 166 mg/dL (83-193)
== END 2022-01-05 09:17 | disposition home or self-care (01) ==
PROVIDERS: PCP Family Medicine Adolescent Medicine; Visit Provider Internal Medicine Nephrology
DX: R94.4 Abnormal results of kidney function studies (principal); Z79.01 Long term (current) use of anticoagulants; Z86.711 Personal history of pulmonary embolism
CPT/HCPCS: 36415; 80069; 81003; 82570; 83883; 83930; 84156; 85025; 85610; 85652; 86038; 86160; 86162; 86334

== ENCOUNTER 2022-01-07 13:37 | Outpatient (CLI) | payer MEDICARE, SELFPAY ==
[2022-01-07 14:03] LABS: Creatinine Urine 178.52 mg/dL (40-278)
[2022-01-07 14:05] LABS: Creatinine 24 Hour Urine 2.32 g/24 hr (0.60-1.80); Total Volume 24 Hour Urine 1300 ml
== END 2022-01-07 13:38 | disposition home or self-care (01) ==
LOC: CHSLAB 13:39
PROVIDERS: PCP Family Medicine Adolescent Medicine; Visit Provider Internal Medicine Nephrology
DX: R94.4 Abnormal results of kidney function studies (principal)
CPT/HCPCS: 81050; 82570; 86335

== ENCOUNTER 2022-04-25 10:04 | Outpatient (RCR) | payer MEDICARE, SELFPAY ==
[2022-04-25 10:40] LABS: INR 1.9; Prothrombin Time 19.3 Seconds (9.50-12.10)
== END 2022-07-24 23:59 | disposition home or self-care (01) ==
LOC: CHSLAB 10:04
PROVIDERS: PCP Family Medicine Adolescent Medicine; Visit Provider Family Medicine Adolescent Medicine
DX: Z79.01 Long term (current) use of anticoagulants (principal); Z86.711 Personal history of pulmonary embolism
CPT/HCPCS: 36415; 85610

== ENCOUNTER 2022-06-17 09:45 | Outpatient (CLI) | payer MEDICARE, SELFPAY ==
[2022-06-17 10:15] VITALS: PULSE 84; O2SAT 91
[2022-06-17 10:17] VITALS: PULSE 87; O2SAT 85
[2022-06-17 10:24] VITALS: PULSE 95; O2SAT 94
--- NOTE | 2022-06-17 10:33 | HOMEO2EVAL ---
Evaluation was performed at [facility] Home Oxygen Evaluation RC: Home Oxygen (O2) Evaluation Start: 06/17/22 10:26 Freq: Status: Active Protocol: RPE Activity Type Activity Date Activity User E-sign Co-sign Detail Recorded Client Recorded Date Recorded By Document 06/17/22 10:15 [email or web address] [email or web address] 06/17/22 10:33 SJB Document 06/17/22 10:17 [email or web address] 06/17/22 10:33 SJB Document 06/17/22 10:24 SJB [email or web address] 06/17/22 10:33 SJB 06/17/22 06/17/22 06/17/22 10:15 10:17 10:24 Home O2 Evaluation [Oxygen] -Test Phase Resting Exercise Exercise -Oxygen Delivery Room Air Room Air Nasal Cannula -Oxygen Flow Rate (L/min) 1 [Pulse Oximetry] -Pulse Oximetry (90-100 %) 91 85 L 94 [Pulse Rate] -Pulse Rate (60-100 beats/min) 84 87 95 [Evaluation] -Activity Tolerance Good Fair -Rating of Perceived Dyspnea (PD) +2 Mild, Some +3 Moderate Difficulty, Difficulty, But Noticeable to Can Continue the Observer -Rate of Perceived Exertion (PE) 12 14 Query Text:Click the Protocol Button to View the RPE Scale [Exercise] -Ambulation Distance (feet) 90 300 -Ambulation Distance (meters) 27.43 91.43 [Comments] -Home Oxygen Evaluation Comments Will now begin Will start on 1 Pt finished walk on room lpm oxygen. walk on 1 lpm air, pushing with Sp02 at 94 wheelchair. % and HR 95. She walked a total of approx 390 ft pushing wheelchair, stopping 1 time for around 2 minutes. Pt states she generally does not walk this far. Educated on PLB but pt had a very hard time with this and was breathing very rapidly and shallow. [Charges] -Treatment Charges O2 Evaluation - Outpatient
[2022-06-17 10:48] LABS: INR 2.1
== END 2022-06-17 09:46 | disposition home or self-care (01) ==
PROVIDERS: Family Medicine Adolescent Medicine; Visit Provider Physician Assistant
DX: G47.33 Obstructive sleep apnea (adult) (pediatric) (principal); J45.909 Unspecified asthma, uncomplicated; Z86.711 Personal history of pulmonary embolism
CPT/HCPCS: 36415; 85610; 94618

== ENCOUNTER 2022-07-04 07:36 | Outpatient (CLI) | payer MEDICARE, SELFPAY ==
--- NOTE | 2022-08-03 14:31 | WPDSLEEPSTUD ---
Sleep Study Date of Study: 07/04/22 Ordering Provider: ESTEFANY Perdomo Interpreting Physician: Chloé Castillo DO Sleep Study Type: BiPAP Titration Height: 1.7 m Weight: 113.852 kg Body Mass Index: 39.3 Neck Circumference (inches): 16.5 Tyner: 12 Reason for Sleep Study The patient was started on BPAP since August 2021. Still has daytime hypersomnia. 04/2021 - Home sleep test - AHI 6.8, mild sleep apnea. Desaturation to 71%, 79% of the testing time below 90%. Average oxygen saturation for the study is only 86-88%. 06/2021 - Titration study (@ [facility]) - 'CPAP ineffective at treating her sleep apnea. She requires BiPAP 20/15ejH6M Sleep History The patient is a 66 year old female with anemia, anxiety, asthma, back pain, bipolar disorder, opioid use, depression, history of deep venous thrombosis, hyperlipidemia, hypertension, migraine, history of pulmonary embolus and history of KOBE on BPAP that had a sleep study ordered by the Pulmonary group for persistent daytime hypersomnia despite PAP use. The patient is disabled. She frequently awakens from sleep short of breath. She rarely awakens at night with heartburn, belching or cough. She constantly snores and is frequently loud enough that others complain. He frequently has trouble sleeping when she has a cold. She occasionally wakes up gasping for air throughout the night. She frequently has breathing problems at night observed by herself or others. She occasionally sweats excessively at night. She occasionally notices heart palpitations or irregular heartbeats during the night. She frequently falls asleep during the day but never while driving. She rarely experiences loss of muscle tone when extremely emotional. She denies having trouble at school or work due to sleepiness. She occasionally feels unable to move when waking up or falling asleep. She occasionally experiences vivid dreamlike scenes upon awakening or falling asleep. She rarely feels afraid of going to sleep. She occasionally has nightmares and occasionally remembers her dreams. She frequently has thoughts racing through her mind. She frequently feels sad, depressed and anxious. She occasionally has muscular tension. She frequently notices parts of her body jerk. She rarely kicks during the night. She frequently has crawling and aching feelings in her legs and occasionally has leg pain during the night. She denies grinding her teeth during sleep and rarely awakens with morning jaw pain. He is frequently bothered by pain during the day and occasionally awakened by pain during the night. She frequently wakes up feeling stiff in the morning. She frequently wakes up with sore achy muscles. She frequently wakes up with pain in the neck, spine or joints. She goes to bed between 11 to 11:30 p.m. on both weekdays and weekends. It takes her 20-30 minutes to fall asleep. She wakes up 1-2 times throughout the night for unknown reasons. She is able to fall asleep immediately. She wakes up between 7-730 a.m. on both weekdays and weekends. He typically gets 7 hours of sleep per night. She stays in bed for 10-15 minutes after waking up in the morning. She currently lives with her . She does not consume any caffeinated beverages within 2 hours of bedtime. She does not engage in physical exercise before bedtime. She will occasionally read before falling asleep. She will watch television before falling asleep. She will take naps in the afternoon or the evening but they are not refreshing. She will drink coffee and caffeinated soda throughout the day. She denies tobacco, alcohol and recreational drug use. REPLACED BY [facility] Past Medical History Medical History Allergy Anemia Anxiety Asthma Back pain Bipolar 1 disorder Bladder problem Cataract, bilateral Chronic, continuous use of opioids Depression DVT (deep venous thrombosis) Hyperlipemia Hy
[2022-08-03 14:34] VITALS: BMI 39.3
== END 2022-07-05 07:01 | disposition home or self-care (01) ==
PROVIDERS: Visit Provider Physician Assistant
DX: G47.33 Obstructive sleep apnea (adult) (pediatric) (principal)
CPT/HCPCS: 95811

== ENCOUNTER 2022-08-27 12:36 | Outpatient (CLI) | payer MEDICARE, SELFPAY ==
[2022-08-27 13:19] LABS: INR 1.7; Prothrombin Time 18.2 Seconds (9.50-12.10)
[2022-08-27 13:20] LABS: Total Protein Urine Random 18.2 mg/dL (0.0-11.9); Ur Ttl Prot Creatinine Ratio 0.13 mg/mg (0-0.20)
[2022-08-27 13:34] LABS: Alanine Aminotransferase 30 U/L (14-59); Albumin Level 3.9 g/dL (3.4-5.0); Alkaline Phosphatase 95 U/L (46-116); Anion Gap 5 mmol/L (8-16); Aspartate Amino Transferase 20 U/L (15-37); Bilirubin,Total 0.3 mg/dL (0.00-1.00); Blood Urea Nitrogen 16 mg/dL (7-18); Calcium 9.3 mg/dL (8.5-10.1); Carbon Dioxide 32 mmol/L (21-32); Chloride 107 mmol/L (98-108); Estimated Glomerular Filt Rate 49; Glucose 120 mg/dL (70-99); Osmolality Calculated 300 mOsm/kg (285-295); Phosphorus 2.6 mg/dL (2.6-4.7); Potassium 3.6 mmol/L (3.5-5.1); Sodium 144 mmol/L (136-145); Total Protein 7.1 g/dL (6.4-8.2)
[2022-08-27 13:35] LABS: CRP < 0.5 mg/dL (0.0-0.9); Hemoglobin A1C 5.7 % (<5.7)
[2022-08-27 13:40] LABS: Rheumatoid Factor Screen Negative (Negative)
[2022-08-27 14:20] LABS: Erythrocyte Sedimentation Rate 14 mm/hr (0-20)
== END 2022-08-27 12:37 | disposition home or self-care (01) ==
PROVIDERS: PCP Family Medicine Adolescent Medicine; Visit Provider Physician Assistant
DX: R73.03 Prediabetes (principal); M79.642 Pain in left hand; M79.641 Pain in right hand; I10 Essential (primary) hypertension; E78.5 Hyperlipidemia, unspecified; N18.31 Chronic kidney disease, stage 3a
CPT/HCPCS: 36415; 80053; 82570; 83036; 84100; 84156; 85610; 85652; 86140; 86430

== ENCOUNTER 2022-10-18 09:29 | Outpatient (CLI) | payer MEDICARE, SELFPAY ==
--- NOTE | ~2022-10-18 | DEXA_ITS ---
Bone Density Report Name: MARCELA GUTIÉRREZ V Age: 66 Sex: Female Ethnicity: White Date of : 1955 Indication: postmenopausal; screening for osteoporosis; asthma or emphysema; Referring Provider: YUDELKA SAMAYOA Study: Bone densitometry was performed. Exam Date: October 18, 2022 Accession number: [id number] Bone Density: Region BMD T-score Z-score Classification AP Spine(L1, L2) 1.604 5.7 7.3 Normal Femoral Neck (Left) 0.892 0.4 1.9 Normal Total Hip (Left) 1.127 1.5 2.7 Normal Femoral Neck (Right) 0.909 0.5 2.0 Normal Total Hip (Right) 1.067 1.0 2.2 Normal Total Hip Mean 1.097 1.3 2.5 Normal World Health Organization criteria for BMD impression classify patients as: Normal (T-score at or above -1.0), Osteopenia (T-score between -1.0 and -2.5), or Osteoporosis (T-score at or below -2.5). 10-year Fracture Risk: FRAX not reported because: All T-scores for Spine Total, Hip Total, Femoral Neck at or above -1.0 Clinical Information Provided by Patient: Has used the following medications: Calcium Has the following medical conditions: Asthma or Emphysema Patient maximum height was 67 Menopause Age: 47 Does not regularly consume dairy products Drinks caffeinated beverages Onset of menses at age 13 Number of children 3 Impression: The patient has normal bone mass. Discussion: BONE DENSITY IS ABOVE THE MINIMUM DESIRABLE LEVEL AT ALL SKELETAL SITES TESTED. This patient?s bone mineral density is above the minimum desirable level (T-score -1.0 or better) at all sites measured. The patient should follow a healthful lifestyle (good nutrition with adequate calcium and vitamin D, and appropriate weight-bearing exercise). Follow-Up: Consider repeating this study in 5 years or sooner if there is some new clinical indication. Reported by: SHANTE on 10/18/2022 10:02:00 AM. Reviewed, dictated and finalized at location ACheryle ROBERSON
--- NOTE | ~2022-10-18 | MM_ITS ---
EXAMINATION: MM screening amish BI w cassidy HISTORY: Screening mammogram TECHNIQUE: Craniocaudal and mediolateral oblique 3-D tomosynthesis images were obtained and synthetic 2-D images were generated. CAD analysis was submitted and interpreted. COMPARISON: 03/06/2016 left mammogram 08/22/2015 diagnostic left mammogram and left breast ultrasound examination 06/22/2014 bilateral screening mammogram BREAST PARENCHYMAL COMPOSITION: There are scattered areas of fibroglandular density. FINDINGS: There is no evidence of suspicious mass, calcification, or architectural distortion to sugg est malignancy in either breast. There has been no suspicious interval change. IMPRESSION: 1. No mammographic evidence of malignancy. 2. Recommend routine screening mammography in one year. BI-RADS Category 1: Negative Reviewed, dictated and finalized at location A. MATION CONTROLS ENGINEER
== END 2022-10-18 09:30 | disposition home or self-care (01) ==
LOC: ANHIMG 09:32
PROVIDERS: PCP Family Medicine Adolescent Medicine; Visit Provider Physician Assistant
DX: Z12.31 Encounter for screening mammogram for malignant neoplasm of breast (principal); Z78.0 Asymptomatic menopausal state
CPT/HCPCS: 77063; 77067; 77080

== ENCOUNTER 2022-10-23 13:10 | Outpatient (CLI) | payer MEDICARE, SELFPAY ==
--- NOTE | ~2022-10-23 | CT_ITS ---
EXAMINATION: CT chest high resolution wo nv DATE: 10/23/2022 14:48 INDICATION: Shortness of breath and hypoxia TECHNIQUE: Computed tomography (CT) of the chest was performed without intravenous contrast. The dose -length product (DLP) was 404.88 mGy-cm. Automated exposure control and iterative reconstruction tech [email or web address] were employed. COMPARISON: 04/28/2016 FINDINGS: Examination is somewhat captured in expiration. There are scattered dependent airspace opac ities of the lungs. No pleural effusion or pneumothorax. Cardiomegaly is noted. There are no patholog ically enlarged thoracic lymph nodes. Calcified pulmonary nodules and calcified right hilar and media stinal lymph nodes are consistent with old granulomatous disease. Punctate calcifications in an other tran normal spleen likely represent healed granulomatous disease. The gallbladder is surgically absen t. There are bridging osteophytes at multiple levels in the spine, consistent with diffuse idiopathic skeletal hyperostosis (DISH). IMPRESSION: 1. Dependent airspace opacities of the lungs, felt to be predominantly atelectasis related to expirat ory phase examination. No definite acute findings. 2. Cardiomegaly. Reviewed, dictated and finalized at location F. RAL HOME ATTENDANT IMPRESSION: 1. Dependent airspace opacities of the lungs, felt to be predominantly atelecta sis related to expiratory phase examination. No definite acute findings. 2. Cardiomegaly.
--- NOTE | 2022-10-23 14:07 | PCRCNOTE ---
PT CAME IN FOR PFT TESTING, UNABLE TO PERFORM TESTING DUE TO SOB. DR. ROSA'S OFFICE NOTIFIED
== END 2022-10-23 13:11 | disposition home or self-care (01) ==
LOC: ANHPFT 13:11
PROVIDERS: PCP Family Medicine Adolescent Medicine; Visit Provider Internal Medicine Critical Care Medicine
DX: R06.02 Shortness of breath (principal); R09.02 Hypoxemia; Z99.81 Dependence on supplemental oxygen
CPT/HCPCS: 71250

== ENCOUNTER 2022-11-26 12:29 | Outpatient (CLI) | payer MEDICARE, SELFPAY ==
[2022-11-26 12:47] LABS: Hematocrit 37.3 % (35.0-42.0); Hemoglobin 12.5 g/dL (11.7-13.8); Mean Corpuscular HGB Conc 33.5 g/dL (32.0-36.0); Mean Corpuscular Hemoglobin 30.6 pg (27.0-31.0); Mean Corpuscular Volume 91.2 fL (78.0-102.0); Platelet Count Result 201 K/mm3 (150-420); Red Blood Count 4.09 M/mm3 (4.20-5.40); Red Cell Distribution Width 13.9 % (11.6-14.4); White Blood Count 6.8 K/mm3 (4.8-10.8)
[2022-11-26 13:01] LABS: Creatinine Urine 63.21 mg/dL (40-278); Total Protein Urine Random < 6.0 mg/dL (0.0-11.9); Ur Ttl Prot Creatinine Ratio 0.09 mg/mg (0-0.20)
[2022-11-26 13:02] LABS: INR 2.8; Prothrombin Time 28.6 Seconds (9.50-12.10)
[2022-11-26 13:22] LABS: Anion Gap 7 mmol/L (8-16); Blood Urea Nitrogen 15 mg/dL (7-18); Calcium 9.6 mg/dL (8.5-10.1); Carbon Dioxide 32 mmol/L (21-32); Chloride 108 mmol/L (98-108); Estimated Glomerular Filt Rate 53; Glucose 94 mg/dL (70-99); Osmolality Calculated 304 mOsm/kg (285-295); Potassium 4.2 mmol/L (3.5-5.1); Sodium 147 mmol/L (136-145)
[2022-11-30 20:16] LABS: Parathyroid Intact 37 pg/mL (14-64)
== END 2022-11-26 12:30 | disposition home or self-care (01) ==
PROVIDERS: PCP Family Medicine Adolescent Medicine; Visit Provider Internal Medicine Nephrology
DX: N18.31 Chronic kidney disease, stage 3a (principal); Z86.711 Personal history of pulmonary embolism
CPT/HCPCS: 36415; 80069; 82570; 83970; 84156; 85027; 85610

== ENCOUNTER 2023-04-08 09:14 | Outpatient (CLI) | payer MEDICARE, SELFPAY ==
--- NOTE | ~2023-04-08 | XR_ITS ---
EXAMINATION: XR shoulder RT min 2V DATE: 04/08/2023 09:36 INDICATION: Right shoulder pain. TECHNIQUE: 5 views of right shoulder were obtained. COMPARISON: None. FINDINGS: Bone alignment is normal. No fracture. There is moderate osteoarthritis of glenohumeral manuel nt and severe osteoarthritis of acromioclavicular joint. There is a loose body in subacromial/subdelt oid bursa. IMPRESSION: 1. Polyarticular osteoarthritis. Reviewed, dictated and finalized at location A.
[2023-04-08 10:30] LABS: INR 1.9; Prothrombin Time 23.1 Seconds (11.1-14.7)
== END 2023-04-08 09:15 | disposition home or self-care (01) ==
PROVIDERS: PCP Family Medicine Adolescent Medicine; Visit Provider Nurse Practitioner Family
DX: M19.011 Primary osteoarthritis, right shoulder (principal); Z86.711 Personal history of pulmonary embolism
CPT/HCPCS: 36415; 73030; 85610

== ENCOUNTER 2023-10-08 11:23 | Outpatient (CLI) | payer MEDICARE, SELFPAY ==
[2023-10-08 11:51] LABS: Hematocrit 40.8 % (37.0-47.0); Hemoglobin 13.1 g/dL (12.0-15.0); Mean Corpuscular HGB Conc 32.1 g/dl (32-36); Mean Corpuscular Hemoglobin 28.6 pg (26-34); Mean Corpuscular Volume 89.1 fl (80-100); Mean Platelet Volume 11.6 fl (7.4-10.4); Platelet Count Result 202 k/mm3 (150-375); Red Blood Count 4.58 M/mm3 (4.2-5.4); Red Cell Distribution Width 14.7 % (11.5-14.5)
[2023-10-08 12:01] LABS: Albumin Level 4.5 g/dL (3.5-5.1); Anion Gap 4 mmol/L (8-16); Blood Urea Nitrogen 19 mg/dL (7-17); Calcium 9.8 mg/dL (8.4-10.2); Carbon Dioxide 34 mmol/L (22-30); Chloride 103 mmol/L (98-107); Estimated Glomerular Filt Rate > 60; Glucose 110 mg/dL (65-110); Phosphorus 3.3 mg/dL (2.5-4.5); Potassium 4.3 mmol/L (3.4-5.0); Sodium 141 mmol/L (137-145)
[2023-10-08 12:12] LABS: Parathyroid Intact 63.5 pg/mL (7.5-53.5)
[2023-10-08 12:26] LABS: Creatinine Urine 58.7 mg/dL; Total Protein Urine Random 9 mg/dL; Ur Ttl Prot Creatinine Ratio 0.15 mg/mg (0-0.20)
== END 2023-10-08 11:24 | disposition home or self-care (01) ==
LOC: ANHLAB 11:27
PROVIDERS: PCP Family Medicine Adolescent Medicine; Visit Provider Internal Medicine Nephrology
DX: N18.31 Chronic kidney disease, stage 3a (principal)
CPT/HCPCS: 36415; 80069; 82570; 83970; 84156; 85027

== ENCOUNTER 2023-12-02 12:47 | Outpatient (CLI) | payer MEDICARE, SELFPAY ==
[2023-12-02 13:51] LABS: Anion Gap 6 mmol/L (4-12); Blood Urea Nitrogen 24 mg/dL (7-17); Carbon Dioxide 31 mmol/L (22-30); Chloride 105 mmol/L (98-107); Estimated Glomerular Filt Rate > 60; Glucose 102 mg/dL (65-110); Potassium 4.6 mmol/L (3.4-5.0); Sodium 142 mmol/L (137-145)
== END 2023-12-02 12:48 | disposition home or self-care (01) ==
LOC: ANHLAB 12:48
PROVIDERS: PCP Family Medicine Adolescent Medicine; Visit Provider Internal Medicine Nephrology
DX: N18.31 Chronic kidney disease, stage 3a (principal)
CPT/HCPCS: 36415; 80048

== ENCOUNTER 2024-01-05 10:00 | Outpatient (CLI) | payer MEDICARE, SELFPAY ==
[2024-01-05 10:46] LABS: Anion Gap 5 mmol/L (4-12); Blood Urea Nitrogen 18 mg/dL (7-17); Calcium 10.2 mg/dL (8.4-10.2); Carbon Dioxide 32 mmol/L (22-30); Chloride 105 mmol/L (98-107); Estimated Glomerular Filt Rate 55; Glucose 108 mg/dL (65-110); Potassium 4.4 mmol/L (3.4-5.0); Sodium 142 mmol/L (137-145)
== END 2024-01-05 10:01 | disposition home or self-care (01) ==
LOC: ANHLAB 10:02
PROVIDERS: PCP Family Medicine Adolescent Medicine; Visit Provider Internal Medicine Cardiovascular Disease
DX: N18.2 Chronic kidney disease, stage 2 (mild) (principal)
CPT/HCPCS: 36415; 80048; 83735

== ENCOUNTER 2024-04-27 11:21 | Outpatient (CLI) | payer MEDICARE, SELFPAY ==
[2024-04-27 11:45] LABS: Hematocrit 37.1 % (37.0-47.0); Hemoglobin 12.2 g/dL (12.0-15.0); Mean Corpuscular HGB Conc 32.9 g/dl (32-36); Mean Corpuscular Hemoglobin 30.6 pg (26-34); Mean Platelet Volume 11.3 fl (7.4-10.4); Platelet Count Result 216 k/mm3 (150-375); Red Blood Count 3.99 M/mm3 (4.2-5.4); Red Cell Distribution Width 13.2 % (11.5-14.5); White Blood Count 6.3 K/mm3 (4.5-10.0)
[2024-04-27 11:56] LABS: Albumin Level 4.4 g/dL (3.5-5.1); Anion Gap 4 mmol/L (4-12); Blood Urea Nitrogen 19 mg/dL (7-17); Calcium 9.9 mg/dL (8.4-10.2); Carbon Dioxide 39 mmol/L (22-30); Chloride 99 mmol/L (98-107); Estimated Glomerular Filt Rate 45; Glucose 116 mg/dL (65-110); Phosphorus 3.3 mg/dL (2.5-4.5); Potassium 4.1 mmol/L (3.4-5.0); Sodium 142 mmol/L (137-145)
[2024-04-27 12:07] LABS: Parathyroid Intact 40.7 pg/mL (14.5-75.2)
[2024-04-27 12:11] LABS: Creatinine Urine 130.4 mg/dL; Total Protein Urine Random 11 mg/dL; Ur Ttl Prot Creatinine Ratio 0.08 mg/mg (0-0.20)
== END 2024-04-27 11:22 | disposition home or self-care (01) ==
PROVIDERS: PCP Family Medicine Adolescent Medicine; Visit Provider Internal Medicine Nephrology
DX: N18.31 Chronic kidney disease, stage 3a (principal); J40 Bronchitis, not specified as acute or chronic
CPT/HCPCS: 36415; 80069; 82570; 83970; 84156; 85027

== ENCOUNTER 2024-07-05 07:50 | Outpatient (CLI) | payer MEDICARE, SELFPAY ==
--- NOTE | ~2024-07-05 | CT_ITS ---
EXAMINATION:CT diagnostic chest wo con DATE: 07/05/2024 09:27 INDICATION: Chronic respiratory failure with hypoxia. TECHNIQUE: Computed tomography (CT) of the chest was performed without intravenous contrast. Automate d exposure control and iterative reconstruction technique were employed. The dose-length product (DLP ) was 465.94 mGy-cm. COMPARISON: Chest CT 10/23/2022 FINDINGS: The lungs demonstrate mild atelectasis. No bronchiectasis or honeycombing. Calcified pulmon francheska nodules and calcified hilar and mediastinal lymph nodes are consistent with old granulomatous dis ease. No pleural effusion. Cardiomegaly is noted. No pericardial effusion. The central pulmonary matias suresh are enlarged, consistent with pulmonary arterial hypertension. There is diffuse hepatic steatosi s. There are changes of cholecystectomy. Calcifications in the spleen are consistent with old granulo matous disease. There is a total right shoulder arthroplasty. IMPRESSION: 1. Mild atelectasis in the lungs. Reviewed, dictated and finalized at location A. LY CHAIN DEVELOPMENT MANAGER
[2024-07-05 08:30] VITALS: PULSE 71; O2SAT 87
[2024-07-05 08:31] VITALS: O2SAT 88
[2024-07-05 08:32] VITALS: O2SAT 93
[2024-07-05 08:35] VITALS: PULSE 90; O2SAT 95
[2024-07-05 08:45] VITALS: PULSE 75; O2SAT 96
--- NOTE | 2024-07-05 10:24 | HOMEO2EVAL ---
Evaluation was performed at [facility] Home Oxygen Evaluation RC: Home Oxygen (O2) Evaluation Start: 07/05/24 10:22 Freq: Status: Active Protocol: RPE Activity Type Activity Date Activity User E-sign Co-sign Detail Recorded Client Recorded Date Recorded By Document 07/05/24 08:30 MALINDA [email or web address] 07/05/24 10:24 MALINDA Document 07/05/24 08:31 MALINDA [email or web address] 07/05/24 10:24 MALINDA Document 07/05/24 08:32 MALINDA [email or web address] 07/05/24 10:24 MALINDA Document 07/05/24 08:35 MALINDA [email or web address] 07/05/24 10:24 MALINDA Document 07/05/24 08:45 MALINDA [email or web address] 07/05/24 10:24 MALINDA 07/05/24 07/05/24 07/05/24 08:30 08:31 08:32 Home O2 Evaluation [Oxygen] -Test Phase Resting Resting Resting -Oxygen Delivery Room Air Nasal Cannula Nasal Cannula -Oxygen Flow Rate (L/min) 1 2 [Pulse Oximetry] -Pulse Oximetry (90-100 %) 87 L 88 L 93 [Pulse Rate] -Pulse Rate (60-100 beats/min) 71 [Exercise] -Ambulation Distance (feet) -Ambulation Distance (meters) [Comments] -Home Oxygen Evaluation Comments [Charges] -Evaluation Charges O2 Evaluation by Pulmonary 07/05/24 07/05/24 08:35 08:45 Home O2 Evaluation [Oxygen] -Test Phase Exercise Resting -Oxygen Delivery Nasal Cannula Nasal Cannula -Oxygen Flow Rate (L/min) 2 2 [Pulse Oximetry] -Pulse Oximetry (90-100 %) 95 96 [Pulse Rate] -Pulse Rate (60-100 beats/min) 90 75 [Exercise] -Ambulation Distance (feet) 500 -Ambulation Distance (meters) 152.39 [Comments] -Home Oxygen Evaluation Comments Pt requires 2 liters O2 resting and with activity [Charges] -Evaluation Charges
== END 2024-07-05 07:51 | disposition home or self-care (01) ==
PROVIDERS: PCP Family Medicine Adolescent Medicine; Visit Provider Physician Assistant
DX: J96.11 Chronic respiratory failure with hypoxia (principal); J45.909 Unspecified asthma, uncomplicated
CPT/HCPCS: 71250; 94618

== ENCOUNTER 2024-07-29 02:32 | Day surgery (SDC) | payer MEDICARE, SELFPAY ==
[2024-07-19 14:36] VITALS: BMI 38.4
--- NOTE | 2024-07-19 15:25 | PC.NURSE ---
Spoke with _PATIENT regarding medication WARFARIN. Pt. verbalizes understanding that the last dose is to be taken on 07/23/2024, is to remain on ASA and the Endoscopist will instruct them when to restart Warfarin after the procedure.
[2024-07-29 12:12] VITALS: BP 147/82; PULSE 80; RESP 20; TEMP 35.9; O2SAT 100; BMI 38.7
[2024-07-29] MEDS: LACTATED RINGERS 1,000 ML 150 ML IV CONT (12:24)
--- NOTE | 2024-07-29 12:58 | P.PNAN_ITS ---
Anes - Initial Pre Proc Eval Procedure: Operation Date: 07/29/24 13:30 Proposed Procedures p Esophagogastroduodenoscopy - Celestino Erwin MD Date/Time: 07/29/24 12:58 Surgeon: Celestino Erwin MD Pre Op Diagnosis: Dysphagia Patient Data Age: 68 Gender: F Height: 1.7 m Weight: 112 kg Last Vital Signs Temp 35.9 C L 07/29/24 12:12 Pulse 80 07/29/24 12:12 Resp 20 07/29/24 12:12 BP 147/82 H 07/29/24 12:12 Pulse Ox 100 07/29/24 12:12 O2 Del Method Nasal Cannula 07/29/24 12:12 O2 Flow Rate 2 07/29/24 12:12 Allergies Allergy/AdvReac Type Severity Reaction Status Date / Time Contrast Media Allergy Severe Headache Uncoded 07/29/24 12:07 Home Medications Medication Instructions Recorded Confirmed Type alprazolam 0.5 mg tablet 0.5 mg PO QID 03/07/20 07/29/24 History calcium carbonate (Calcium 600) 600 mg PO BID 03/07/20 07/29/24 History fluoxetine 20 mg capsule 20 mg PO DAILY 03/07/20 07/29/24 History rbdskmcumdiw-tjdrqjq-gyydo acid 1 tablet PO DAILY 03/07/20 07/29/24 History 400 mcg-lutein 250 mcg chewable tablet (Centrum Silver) quetiapine 200 mg tablet 600 mg PO HS 03/07/20 07/29/24 History aspirin 81 mg tablet,delayed 81 mg PO DAILY 12/20/20 07/29/24 History release mirtazapine 45 mg tablet 45 mg PO HS 12/20/20 07/29/24 History metoprolol tartrate 25 mg tablet 25 mg PO BID 06/10/22 07/29/24 History nitroglycerin 0.4 mg sublingual 0.4 mg sublingual Q5M PRN Chest 06/11/22 07/29/24 History tablet Pain rosuvastatin 5 mg tablet 5 mg PO DAILY 08/12/22 07/29/24 History blood-glucose meter (True Metrix #1 kit 06/16/23 06/07/24 Rx Air Glucose Meter kit) lancets 30 gauge (TRUEplus Lancets) #100 ea 10/25/23 07/29/24 Rx warfarin 3 mg tablet See Rx Instructions .Route 01/21/24 07/29/24 Rx .COMPLEX #90 tabs cholecalciferol (vitamin D3) 25 25 mcg PO DAILY 03/16/24 07/29/24 History mcg (1,000 unit) capsule (Vitamin D3) triamcinolone acetonide 0.1 % 1 applic topical BID PRN Rash 03/16/24 07/29/24 History topical cream gabapentin 800 mg tablet See Rx Instructions .Route 04/19/24 07/29/24 Rx .COMPLEX #270 tabs albuterol sulfate 90 mcg/actuation 1 - 2 puff inhalation Q4-6H PRN 06/07/24 07/29/24 Rx aerosol inhaler shortness of breath or wheezing #8.5 grams fluticasone fur. 200 mcg-umeclid 1 inh inhalation DAILY asthma 1 06/07/24 07/29/24 Rx 62.5 mcg-vilant 25 mcg month #60 ea inhalat.powder (Trelegy Ellipta) blood sugar diagnostic (True #50 ea 06/17/24 Rx Metrix Glucose Test Strip) blood-glucose meter (True Metrix #1 kit 07/06/24 Rx Air Glucose Meter) furosemide 40 mg tablet See Rx Instructions .Route 07/07/24 07/29/24 Rx .COMPLEX #180 tabs albuterol sulfate 2.5 mg/3 mL 2.5 mg inhalation BID 07/19/24 07/29/24 History (0.083 %) solution for nebulization fexofenadine 180 mg tablet 180 mg PO HS 07/19/24 07/29/24 History hydrocodone 7.5 mg-acetaminophen 1 - 2 tablet PO Q4H PRN pain 07/19/24 07/29/24 History 325 mg tablet hydrocodone 7.5 mg-acetaminophen See Rx Instructions .Route .COMPLEX 07/19/24 07/29/24 History 325 mg tablet montelukast 10 mg tablet See Rx Instructions .Route .COMPLEX 07/19/24 07/29/24 History vit C 250 mg-vit E 90 mg-zinc 40 1 tablet PO BID 07/19/24 07/29/24 History mg-copper 1 mj-jzbnrd-tymijf capsule (PreserVision AREDS-2) Patient hx anesthesia problems: post op nausea/vomiting Family hx anesthesia problems: none Results Review: All pre-operative results and documents have been reviewed as part of the pre- operative evaluation. [facility] Past Medical History Medical History Allergy Anemia Anxiety Asthma Back pain Bipolar 1 disorder Bladder problem Cataract, bilateral Chronic, continuous use of opioids Depression DVT (deep venous thrombosis) Hyperlipemia Hypertension intermediate frame tender current use of anticoagulant Migraine without aura Obstructive sleep apnea Pulmonary embolus Shortness of Breath Surgical History Surgical History H/O rotator cuff surgery H/O thyroidectomy H/O tubal ligation History of appendectomy History of arthroplasty of right knee History of bladder suspension procedure Previous back surgery S/P bilateral cataract extraction S/P cholecystectomy S/P insertion of intrathecal pump removed 2012 Spinal cord stimulator status removed 2012 Family History Family History Other Cerebrovascular accident Diabetes mellitus Family history of cardiovascular disease Family history of malignant neoplasm Family history of tuberculosis Hypertension Social History Social History Smoking status: Never smoker Second hand tobacco smoke exposure: No Alcohol intake: current Substance use: never Substance use type: does not use Do You Feel Safe in your Home?: Yes Lack of Transportation: No Lack of Food: Never True Current Housing: I Have Housing Concerned About Future Housing: No Difficulty Paying Gas/Electric Bills: No Difficulty Paying for Meds: No Currently Unemployed: No Education: Trade/Vocational Certificate Difficulty w/ Childcare or Family Care: No Living arrangements: with family Additional living arrangements comments: LIVES W/ , SONYA GUTIÉRREZ. Gender identity (if verbalized by the patient): Female Spiritual care concerns: No Anes - Eval Final PreProcedure Day of Procedure 07/29/24 12:58 Patient weight: morbidly obese Heart: regular rate and rhythm Lungs: decreased breath sounds Airway: Mallampati scale class II Neurological: alert and oriented Last oral intake: >/= 8 hours ASA classification: IV Emergent: no Anesthetic plan: proceed Anesthesia type and monitoring: general GIVS and standard monitoring Results Review: All pre-operative results and documents have been reviewed as part of the pre- operative evaluation. Informed Consent: The patient's anesthetic plan and its attendant risks and benefits were discussed with the patient/family/POA. Questions were solicited and answers provided to the satisfaction of the patient/family/POA.
--- NOTE | 2024-07-29 13:18 | PM.IMHP ---
H&P: HPI History of Present Illness Date/Time: 07/29/24 13:18 Chief Complaint: Dysphagia Narrative: this patient has been suffering from dysphagia to solids and liquids about 60% of the times for the past year. She denies weight loss, nausea, vomiting heartburn or regurgitation. Review of Systems Review of Systems: All systems reviewed & are unremarkable except as noted in HPI and below PMFSH Past Medical History Medical History Allergy Anemia Anxiety Asthma Back pain Bipolar 1 disorder Bladder problem Cataract, bilateral Chronic, continuous use of opioids Depression DVT (deep venous thrombosis) Hyperlipemia Hypertension [facility] current use of anticoagulant Migraine without aura Obstructive sleep apnea Pulmonary embolus Shortness of Breath Surgical History Surgical History H/O rotator cuff surgery H/O thyroidectomy H/O tubal ligation History of appendectomy History of arthroplasty of right knee History of bladder suspension procedure Previous back surgery S/P bilateral cataract extraction S/P cholecystectomy S/P insertion of intrathecal pump removed 2012 Spinal cord stimulator status removed 2012 Family History Family History Other Cerebrovascular accident Diabetes mellitus Family history of cardiovascular disease Family history of malignant neoplasm Family history of tuberculosis Hypertension Social History Social History Smoking status: Never smoker Second hand tobacco smoke exposure: No Alcohol intake: current Substance use: never Substance use type: does not use Do You Feel Safe in your Home?: Yes Lack of Transportation: No Lack of Food: Never True Current Housing: I Have Housing Concerned About Future Housing: No Difficulty Paying Gas/Electric Bills: No Difficulty Paying for Meds: No Currently Unemployed: No Education: Trade/Vocational Certificate Difficulty w/ Childcare or Family Care: No Living arrangements: with family Additional living arrangements comments: LIVES W/ , SONYA GUTIÉRREZ. Gender identity (if verbalized by the patient): Female Spiritual care concerns: No Meds Home Medications and Allergies Home Medications Medication Instructions Recorded Confirmed Type alprazolam 0.5 mg tablet 0.5 mg PO QID 03/07/20 07/29/24 History calcium carbonate (Calcium 600) 600 mg PO BID 03/07/20 07/29/24 History fluoxetine 20 mg capsule 20 mg PO DAILY 03/07/20 07/29/24 History qjzmcgqekcrk-bnoksry-vaarr acid 1 tablet PO DAILY 03/07/20 07/29/24 History 400 mcg-lutein 250 mcg chewable tablet (Centrum Silver) quetiapine 200 mg tablet 600 mg PO HS 03/07/20 07/29/24 History aspirin 81 mg tablet,delayed 81 mg PO DAILY 12/20/20 07/29/24 History release mirtazapine 45 mg tablet 45 mg PO HS 12/20/20 07/29/24 History metoprolol tartrate 25 mg tablet 25 mg PO BID 06/10/22 07/29/24 History nitroglycerin 0.4 mg sublingual 0.4 mg sublingual Q5M PRN Chest 06/11/22 07/29/24 History tablet Pain rosuvastatin 5 mg tablet 5 mg PO DAILY 08/12/22 07/29/24 History blood-glucose meter (True Metrix #1 kit 06/16/23 06/07/24 Rx Air Glucose Meter kit) lancets 30 gauge (TRUEplus Lancets) #100 ea 10/25/23 07/29/24 Rx warfarin 3 mg tablet See Rx Instructions .Route 01/21/24 07/29/24 Rx .COMPLEX #90 tabs cholecalciferol (vitamin D3) 25 25 mcg PO DAILY 03/16/24 07/29/24 History mcg (1,000 unit) capsule (Vitamin D3) triamcinolone acetonide 0.1 % 1 applic topical BID PRN Rash 03/16/24 07/29/24 History topical cream gabapentin 800 mg tablet See Rx Instructions .Route 04/19/24 07/29/24 Rx .COMPLEX #270 tabs albuterol sulfate 90 mcg/actuation 1 - 2 puff inhalation Q4-6H PRN 06/07/24 07/29/24 Rx aerosol inhaler shortness of breath or wheezing #8.5 grams fluticasone fur. 200 mcg-umeclid 1 inh inhalation DAILY asthma 1 06/07/24 07/29/24 Rx 62.5 mcg-vilant 25 mcg month #60 ea inhalat.powder (Trelegy Ellipta) blood sugar diagnostic (True #50 ea 06/17/24 Rx Metrix Glucose Test Strip) blood-glucose meter (True Metrix #1 kit 07/06/24 Rx Air Glucose Meter) furosemide 40 mg tablet See Rx Instructions .Route 07/07/24 07/29/24 Rx .COMPLEX #180 tabs albuterol sulfate 2.5 mg/3 mL 2.5 mg inhalation BID 07/19/24 07/29/24 History (0.083 %) solution for nebulization fexofenadine 180 mg tablet 180 mg PO HS 07/19/24 07/29/24 History hydrocodone 7.5 mg-acetaminophen 1 - 2 tablet PO Q4H PRN pain 07/19/24 07/29/24 History 325 mg tablet hydrocodone 7.5 mg-acetaminophen See Rx Instructions .Route .COMPLEX 07/19/24 07/29/24 History 325 mg tablet montelukast 10 mg tablet See Rx Instructions .Route .COMPLEX 07/19/24 07/29/24 History vit C 250 mg-vit E 90 mg-zinc 40 1 tablet PO BID 07/19/24 07/29/24 History mg-copper 1 le-qvuzni-ihoqqz capsule (PreserVision AREDS-2) Allergies Allergy/AdvReac Type Severity Reaction Status Date / Time Contrast Media Allergy Severe Headache Uncoded 07/29/24 12:07 Vital Signs Vital Signs - 24 hr 07/29/24 12:12 Temperature 96.6 F L Pulse Rate 80 Respiratory Rate 20 Blood Pressure 147/82 H Pulse Oximetry 100 Oxygen Delivery Nasal Cannula Oxygen Flow Rate 2 Exam Const: General: cooperative and healthy appearing Resp: Effort & Inspection: normal respiratory effort and able to speak in complete sentences Auscultation: clear to auscultation bilaterally Cardio: Rate: regular rate Rhythm: regular rhythm GI: Inspection: normal to inspection GI Palp: No No hepatosplenomegaly present Auscultation: normal bowel sounds Rectal Exam: deferred Skin: General skin exam: normal color Psych: Appearance: grossly normal Mental Status: mental status grossly normal Assessment and Plan Assessment and plan (1) Dysphagia: Code(s): R13.10 - Dysphagia, unspecified Status: Acute Assessment and Plan: Differential diagnosis for her current problem includes achalasia, nonspecific motility disorder of the esophagus, and less likely eosinophilic esophagitis, peptic stricture, neoplasm or Schatzki ring. The patient is deemed a good candidate for the procedure. Consent signed. Will proceed.
[2024-07-29 13:35] VITALS: BP 122/77; PULSE 72; RESP 19; O2SAT 96
[2024-07-29 13:45] VITALS: BP 127/73; PULSE 72; O2SAT 98
[2024-07-29 13:55] VITALS: BP 140/82; PULSE 73; O2SAT 97
== END 2024-07-29 14:14 | disposition home or self-care (01) ==
PROVIDERS: PCP Family Medicine Adolescent Medicine; Visit Provider Internal Medicine Gastroenterology
PROC: 0DJ08ZZ Inspection of Upper Intestinal Tract, Via Natural or Artificial Opening Endoscopic (ICD-10-PCS; CPT 43235; principal; 2024-07-29 13:30)
DX: K29.50 Unspecified chronic gastritis without bleeding (principal); K21.00 Gastro-esophageal reflux disease with esophagitis, without bleeding; Z79.01 Long term (current) use of anticoagulants; Z79.51 Long term (current) use of inhaled steroids; E66.01 Morbid (severe) obesity due to excess calories; Z68.38 Body mass index [BMI] 38.0-38.9, adult
CPT/HCPCS: 43239; 88305; J2003; J2704; J7120

== ENCOUNTER 2024-10-26 10:30 | Outpatient (CLI) | payer MEDICARE, SELFPAY ==
[2024-10-26 11:00] LABS: Hematocrit 39.1 % (37.0-47.0); Hemoglobin 12.7 g/dL (12.0-15.0); Mean Corpuscular HGB Conc 32.5 g/dl (32-36); Mean Corpuscular Hemoglobin 30.8 pg (26-34); Mean Corpuscular Volume 94.7 fl (80-100); Mean Platelet Volume 11.4 fl (7.4-10.4); Platelet Count Result 191 k/mm3 (150-375); Red Blood Count 4.13 M/mm3 (4.2-5.4); White Blood Count 6.9 K/mm3 (4.5-10.0)
[2024-10-26 11:26] LABS: Albumin Level 4.5 g/dL (3.5-5.1); Anion Gap 10 mmol/L (4-12); Blood Urea Nitrogen 25 mg/dL (7-17); Calcium 9.4 mg/dL (8.4-10.2); Carbon Dioxide 33 mmol/L (22-30); Chloride 102 mmol/L (98-107); Estimated Glomerular Filt Rate 53; Glucose 104 mg/dL (65-110); Phosphorus 2.8 mg/dL (2.5-4.5); Potassium 4.3 mmol/L (3.4-5.0); Sodium 145 mmol/L (137-145)
[2024-10-26 11:30] LABS: Parathyroid Intact 66.6 pg/mL (14.5-75.2)
[2024-10-26 11:50] LABS: Creatinine Urine 65.4 mg/dL; Total Protein Urine Random 7 mg/dL; Ur Ttl Prot Creatinine Ratio 0.11 mg/mg (0-0.20)
== END 2024-10-26 10:31 | disposition home or self-care (01) ==
LOC: ANHLAB 10:37
PROVIDERS: PCP Family Medicine Adolescent Medicine; Visit Provider Internal Medicine Nephrology
DX: N18.31 Chronic kidney disease, stage 3a (principal)
CPT/HCPCS: 36415; 80069; 82570; 83970; 84156; 85027

== ENCOUNTER 2024-12-24 18:54 | Emergency (ER) | payer MEDICARE, SELFPAY ==
[2024-12-24] VITALS (17 sets, daily range): BP systolic 116–155; BP diastolic 53–78; PULSE 78–94; RESP 12–23; TEMP 36.3; O2SAT 90–97
--- NOTE | ~2024-12-24 | CT_ITS ---
CT cervical spine wo con Ordering provider: Deon Womack MD History: . fall. PT LOST FEELING OF LOWER LEGS AFTER FALL. NECK PAIN. . Comparison: None Technique: CT of the cervical spine was performed without contrast. Sagittal and coronal reformatted images were also obtained and reviewed. Automated exposure control and iterative reconstruction tiera hnique were employed. The dose-length product was 542.43 mGy-cm. FINDINGS: VERTEBRAE: No subluxation or acute fracture. The occipital condyles are intact. Degenerative changes of the spine. DISC SPACES: Narrowing of the disc C5-C6. Multilevel facet joint disease. Multilevel level uncovertebral joint osteoarthritic changes. Narrowing of the left foramina at the level of C3-C4, C4-C5. Narrowing of the right foramen at the le maci of C5-6-6 with mild spinal canal stenosis. PARASPINOUS SOFT TISSUES: Normal. IMPRESSION: No acute osseous abnormality cervical spine. Degenerative disc disease at the level of C5-C6 Reviewed, dictated and finalized at location A.
--- NOTE | ~2024-12-24 | CT_ITS ---
CT brain wo con Ordering provider: Deon Womack MD History: 69 years Female with . fall THIS EVENING. PT CAN NO LONGER FEEL LOWER LEGS. . Comparison: November 06, 2017 Technique: CT of the head without contrast. Radiation reduction technique utilized.The dose-length pr oduct was 605.33 mGy-cm. FINDINGS: BRAIN PARENCHYMA AND CSF SPACES: No midline shift, mass effect or hemorrhage. The brain parenchyma a nd CSF spaces are otherwise normal. VISUALIZED PARANASAL SINUSES: Bilateral ethmoid sinus disease. Well aerated. MASTOIDS: Well aerated. BONES: The bones appear intact. SOFT TISSUES: Visualized nasopharynx is normal. Superficial soft tissues are normal. IMPRESSION: No acute intracranial findings. Reviewed, dictated and finalized at location A.
--- NOTE | ~2024-12-24 | CT_ITS ---
CT lumbar spine wo con Ordering provider: Deon Womack MD History: 69 years Female with . fall. LOWER BACK PAIN. PT LOST FEELING OF LOWER LEGS. . Comparison: None. Technique: CT lumbar spine without contrast. Automated exposure control and iterative reconstruction technique were employed. The dose-length product was 1177.39 mGy-cm. FINDINGS: VERTEBRAE: Normal height and alignment. No subluxation or visible acute fracture. Postoperative howe es seen at the level of L3, L4, L5 and S1. DISC SPACES: Degenerative disc disease at the level of L4-L5 and L5-S1. Multilevel facet joint diseas e. Artifacts are seen at multiple levels with improper visualization of the spinal canals. PARASPINOUS SOFT TISSUES: Mild atheromatous disease of the abdominal aorta. Bilateral sacroiliacs. IMPRESSION: No acute fracture or dislocation seen. Postoperative changes. Artifacts degraded the images. Reviewed, dictated and finalized at location A.
--- NOTE | ~2024-12-24 | XR_ITS ---
EXAMINATION: XR knee LT 3V, XR knee RT 3V DATE: 12/24/2024 21:47 (accession [id number]), 12/24/2024 21:48 (accession [id number]) INDICATION: Bilateral knee pain post fall TECHNIQUE: 1. Anteroposterior, oblique and crosstable lateral views of the affected knee were obtained. 2. Anteroposterior, oblique and crosstable lateral views of the affected knee were obtained. COMPARISON: None. FINDINGS: There are bilateral total knee arthroplasties with patellar resurfacing which are well seated in near -anatomic alignment. No periprosthetic lucency to suggest loosening or infection. No fracture. No manuel nt effusion at either knee. There is bilateral prepatellar soft tissue swelling with subcutaneous eliecer ma. IMPRESSION: 1. Bilateral total knee arthroplasties with no knee joint effusion or acute osseous abnormality. Reviewed, dictated and finalized at location A. IMPRESSION: 1. Bilateral total knee arthroplasties with no knee joint effusion or acute oss eous abnormality.
--- NOTE | ~2024-12-24 | CT_ITS ---
CT abdomen pelvis wo con Ordering provider: Deon Womack MD History: 69 years Female with . fall. LOWER BACK PAIN. PT LOST FEELING OF LOWER LEGS. . Comparison: None. Technique: CT abdomen and pelvis without IV and without oral contrast. Automated exposure control and iterative reconstruction technique were employed. The dose-length product was 1461.94 mGy-cm. Findings: VISUALIZED LOWER CHEST: Dependent atelectatic changes. Slight cardiomegaly. UPPER ABDOMINAL ORGANS: Liver: Fat infiltration of the liver. Hepatomegaly. Gallbladder: Status post cholecystectomy. Spleen: Normal. Stomach/duodenum: Normal. Pancreas: Normal. Adrenals: Prominent both adrenal glands. Kidneys: Stone in the right kidney upper pole. PELVIC ORGANS: The bladder is normal. BOWEL AND MESENTERY: Colon: Mild sigmoid diverticulosis without diverticulitis. Normal appendix. Small Bowel: Normal. No obstruction. Peritoneum/mesentery: No free air or free fluid. No mesenteric lymphadenopathy. RETROPERITONEUM: Mild atheromatous disease of the abdominal aorta. No retroperitoneal lymphadenopat hy. MUSCULOSKELETAL: Superficial soft tissues: The superficial soft tissues are normal. Bones: Age appropriate degenerative changes of the spine. Bilateral hip osteoarthritic changes. Posto perative changes in the lower lumbar area. IMPRESSION: Hepatomegaly with fat infiltration. Stone in the right kidney upper pole. No evidence of appendicitis, diverticulitis or intestinal obstruction. Reviewed, dictated and finalized at location A.
--- NOTE | 2024-12-24 19:10 | PC.NURSE ---
DR SPEARS AT THE BEDSIDE
--- NOTE | 2024-12-24 19:11 | ED.FALL ---
HPI - Fall General Chief Complaint: Fall Stated Complaint: fall Time Seen by Provider: 12/24/24 19:10 Source: patient and family Mode of arrival: EMS Limitations: no limitations History of Present Illness HPI Narrative: Patient is a 69-year-old female with a fall at [employer] and trip at home onto her knees bilateral and then forward. She is on Coumadin. She hit her head and had syncope for a few seconds. She is having many areas of pain. Specifically she has had a pain of the lumbar spine and associated bilateral lower extremity paralysis and sensory loss. Her head hurts. She also has bilateral knee pain and upper extremity pains. multiple prior surgeries of her spine and knees. complaint: fall Onset (ago): minute(s) ( Thirty) Fall from: standing Fall witnessed: no Place fall occurred: home Loss of consciousness: yes Length of LOC: second(s) Prolonged down time: no Symptoms prior to fall: none Context: tripped/slipped Location of injury: head, back, pelvis and other ( knees bilateral) Location of injury - extremities: Bilateral: knee Severity: moderate Severity scale (1-10): 5 Quality: sharp Associated symptoms (after fall): unable to walk ( after the event she went from walking to unable to walk due to motor and sensory deficits) Related Data Home Medications ?Medication ?Instructions ?Recorded ?Confirmed ?Last Taken ?Type alprazolam 0.5 mg tablet 0.5 mg PO QID 03/07/20 11/05/24 07/29/24 History calcium carbonate (Calcium 600) 600 mg PO BID 03/07/20 11/05/24 07/21/24 History fluoxetine 20 mg capsule 20 mg PO DAILY 03/07/20 11/05/24 07/29/24 History ccsrviwzlvid-qfwassw-zjckc acid 1 tablet PO DAILY 03/07/20 11/05/24 07/21/24 History 400 mcg-lutein 250 mcg chewable tablet (Centrum Silver) quetiapine 200 mg tablet 600 mg PO HS 03/07/20 11/05/24 07/28/24 History aspirin 81 mg tablet,delayed 81 mg PO DAILY 12/20/20 11/05/24 07/21/24 History release mirtazapine 45 mg tablet 45 mg PO HS 12/20/20 11/05/24 07/28/24 History metoprolol tartrate 25 mg tablet 25 mg PO BID 06/10/22 11/05/24 07/29/24 History nitroglycerin 0.4 mg sublingual 0.4 mg sublingual Q5M PRN Chest 06/11/22 11/05/24 Unknown History tablet Pain rosuvastatin 5 mg tablet 5 mg PO DAILY 08/12/22 11/05/24 07/28/24 History cholecalciferol (vitamin D3) 25 25 mcg PO DAILY 03/16/24 11/05/24 07/21/24 History mcg (1,000 unit) capsule (Vitamin D3) triamcinolone acetonide 0.1 % 1 applic topical BID PRN Rash 03/16/24 11/05/24 Unknown History topical cream albuterol sulfate 2.5 mg/3 mL 2.5 mg inhalation BID 07/19/24 11/05/24 07/21/24 History (0.083 %) solution for nebulization fexofenadine 180 mg tablet 180 mg PO HS 07/19/24 11/05/24 07/21/24 History montelukast 10 mg tablet See Rx Instructions .Route .COMPLEX 07/19/24 11/05/24 07/28/24 History vit C 250 mg-vit E 90 mg-zinc 40 1 tablet PO BID 07/19/24 11/05/24 07/28/24 History mg-copper 1 fk-rstlhn-fgwoyd capsule (PreserVision AREDS-2) Allergies Allergy/AdvReac Type Severity Reaction Status Date / Time Iodinated Contrast Media AdvReac Intermediate Headache Verified 12/24/24 19:31 Review of Systems Review of Systems: All systems reviewed & are unremarkable except as noted in HPI and below Constitutional: Constitutional: Reports no additional constitutional complaints Eyes: Eyes: Reports no additional eye complaints ENT: Reports system reviewed and no additional complaints, except as documented Cardiovascular: Cardiovascular: Reports no additional cardiovascular complaints Respiratory: Respiratory: Reports no additional respiratory complaints Gastrointestinal: Gastrointestinal: Reports no additional gastrointestinal complaints Genitourinary: Genitourinary: Reports no additional female genitourinary complaints Musculoskeletal: Musculoskeletal: Reports no additional musculoskeletal complaints Integumentary/Breasts: Skin/Breast: Reports system reviewed and no additional complaints, except as docu Neurologic: Reports system reviewed and no additional complaints, except as documented Psychiatric: Psychiatric: Reports no additional psychiatric complaints Endocrine: Endocrine: Reports no additional endocrine complaints Hematologic/Lymphatic: Hematologic/Lymphatic: Reports no additional hematologic/lymphatic complaints Allergic/Immunologic: Allergic/Immunologic: Reports no additional allergic/immunologic complaints [facility] Past Medical History Medical History intermediate current use of anticoagulant Shortness of Breath Asthma Obstructive sleep apnea Migraine without aura Hyperlipemia Bladder problem Depression Cataract, bilateral Bipolar 1 disorder Anxiety Anemia Allergy Pulmonary embolus Chronic, continuous use of opioids Back pain Hypertension DVT (deep venous thrombosis) Surgical History Surgical History S/P insertion of intrathecal pump removed 2012 History of arthroplasty of right knee H/O thyroidectomy S/P bilateral cataract extraction S/P cholecystectomy H/O rotator cuff surgery Spinal cord stimulator status removed 2012 History of bladder suspension procedure Previous back surgery History of appendectomy H/O tubal ligation Family History Family History Other Cerebrovascular accident Diabetes mellitus Family history of cardiovascular disease Family history of malignant neoplasm Family history of tuberculosis Hypertension Social History Social History Smoking status: Never smoker Second hand tobacco smoke exposure: No Alcohol intake: never Substance use: never Substance use type: does not use Do You Feel Safe in your Home?: Yes Lack of Transportation: No Lack of Food: Never True Current Housing: I Have Housing Concerned About Future Housing: No Difficulty Paying Gas/Electric Bills: No Difficulty Paying for Meds: No Currently Unemployed: No Education: Trade/Vocational Certificate Difficulty w/ Childcare or Family Care: No Living arrangements: with family Additional living arrangements comments: LIVES W/ , [place]. Gender identity (if verbalized by the patient): Female Spiritual care concerns: No Exam Const: General: healthy appearing Nutritional Appearance: well nourished Orientation/consciousness: patient oriented x3 Limitations: no limitations HENMT: Head: normal to inspection Ears: external ears normal Face/Nose/Sinus: Normal external nose present Eyes: Conjunctivae: conjunctivae normal Pupils: Equal, round and reactive pupils present EOM: EOMs intact bilaterally Neck: Neck: normal visual inspection Chest: Chest palpation & inspection: normal inspection of the chest Resp: Effort & Inspection: normal respiratory effort and not labored Auscultation: clear to auscultation bilaterally and no crackles Cardio: Rate: regular rate Rhythm: regular rhythm Heart sounds: no murmurs GI: Inspection: non-distended GI Palp: Yes Soft to palpation and No Tenderness to palpation present (GI) Auscultation: normal bowel sounds : General: Yes bladder normal to palpation Back/Spine/Pelvis: Back: no CVA tenderness Skin: General skin exam: normal color Rashes: no rashes Wounds: no wounds Neuro: General: patient oriented x3, No moves all extremities, No no meningeal signs, no focal motor deficits and CN's II-XI intact bilaterally Cranial nerves: Yes Nystagmus not present Speech: normal speech Gait exam (Neuro): gait abnormal Other: fast exam negative, GCS 15, NIH score is 10 ( this is bilateral lower extremity and not focal ) patient has no motor or sensory on bilateral lower extremity bilateral lower extremity reflexes are diminished at 1+ Extrem: General: normal to inspection Other: tender bilateral knees to palpation Psych: Mental Status: mental status grossly normal Affect: normal affect Attitude: cooperative Course Vital Signs Vital signs: Vital Signs Temperature 36.3 C L 12/24/24 18:54 Pulse Rate 78 12/24/24 18:54 Respiratory Rate 18 12/24/24 18:54 Blood Pressure 155/67 H 12/24/24 18:54 Pulse Oximetry 97 12/24/24 18:54 Oxygen Delivery Room Air 12/24/24 18:54 Temperature 36.3 C L 12/24/24 18:54 Pulse Rate 90 12/24/24 22:21 Respiratory Rate 15 12/24/24 22:21 Blood Pressure 153/65 H 12/24/24 22:21 Pulse Oximetry 95 12/24/24 22:21 Oxygen Delivery Nasal Cannula 12/24/24 22:21 Oxygen Flow Rate 3 12/24/24 22:21 MDM - Fall MDM Narrative Medical decision making narrative: patient is a 69-year-old female with a traumatic fall at home prior to arrival. Significantly she has lost motor and sensory of her lower extremity bilateral. She has lower back pain. She is on Coumadin hit her head with syncope. We will start with the stat needed pictures such as the head and the abdomen and pelvis. We will further go back and check some of the other x-ray needs after looking for the acute concerns. I will check baseline labs. workup was essentially negative for acute findings. We will also get knee x-rays. We will transfer patient for spinal trauma in [place]. spinal surgery suggested general trauma and we will transfer to [place] general trauma. Lab Data Attestation: I reviewed the patient's lab results. 12/24/24 19:52 12/24/24 19:52 Labs: Lab Results 12/24/24 12/24/24 Range/Units 19:52 20:02 WBC 8.4 (4.8-10.8) K/mm3 RBC 4.25 (4.20-5.40) M/mm3 Hgb 12.6 (11.7-13.8) g/dL Hct 38.9 (35.0-42.0) % MCV 91.5 (78.0-102.0) fL MCH 29.6 (27.0-31.0) pg MCHC 32.4 (32-36) g/dL RDW 13.4 (11.6-14.4) % Plt Count 195 (150-420) K/mm3 MPV 11.6 (9.2-11.8) fl Immature Gran % (Auto) 0.2 H (0.0-0.0) % Neut % (Auto) 57.7 (50.0-70.0) % Lymph % (Auto) 30.0 (18.0-42.0) % [place] % (Auto) 10.4 (2.0-11.0) % Eos % (Auto) 1.1 (1.0-6.0) % Baso % (Auto) 0.6 (0.0-1.0) % Lymph # (Auto) 2.53 (1.10-4.50) K/mm3 [place] # (Auto) 0.88 (0.10-0.90) K/mm3 Eos # (Auto) 0.09 (0.02-0.50) K/mm3 Baso # (Auto) 0.05 (0.00-0.10) K/mm3 Abs Immat Gran (auto) 0.02 H (0.00-0.00) K/mm3 Absolute Neuts (auto) 4.86 (1.70-7.20) K/mm3 Absolute Nucleated RBC 0.00 (0.00-0.00) K/mm3 Nucleated RBC % 0.0 (0-0.0) % PT 22.3 H (9.50-12.1) Seconds INR 2.2 APTT 37.8 H (23.9-30.70) Sec Sodium 146 H (136-145) mmol/L Potassium 3.6 (3.5-5.1) mmol/L Chloride 104 (98-108) mmol/L Carbon Dioxide 33 H (21-32) mmol/L Anion Gap 9 (4-12) mmol/L BUN 20 H (7-18) mg/dL Creatinine 1.53 H (0.55-1.02) mg/dL Estim Creat Clear Calc 42 ml/min Estimated GFR 34 L (59 - ) Glucose 106 H (70-99) mg/dL Calculated Osmolality 304 H (285-295) mOsm/kg Calcium 9.8 (8.5-10.1) mg/dL Total Bilirubin 0.4 (0.00-1.00) mg/dL AST 37 (15-37) U/L ALT 44 (14-59) U/L Alkaline Phosphatase 128 H (46-116) U/L Total Creatine Kinase 337 H (26-192) U/L Total Protein 7.6 (6.4-8.2) g/dL Albumin 3.9 (3.4-5.0) g/dL Urine Color Light yellow (Yellow) Urine Appearance Clear (Clear) Urine pH 6.0 (5.0-8.0) Ur Specific Lynn 1.010 (1.010-1.020) Urine Protein Negative (Negative) Urine Glucose (UA) Negative (Negative) Urine Ketones Negative (Negative) Ur Blood (Man) Negative (Negative) Urine Nitrate Negative (Negative) Urine Bilirubin Negative (Negative) Urine Urobilinogen 0.2 (0.2-1.0) mg/dL Leukocyte Esterase Rfl 1+ H (Negative) ERIC/UL Urine RBC 0-2 (0-2) /hpf Urine WBC 0-3 (0-3) /hpf Ur Squamous Epith Cells Occasional (Few) /hpf Urine Bacteria None seen (None) /hpf Imaging Data Attestation: I personally reviewed and interpreted this imaging study as follows: Radiologist's impression: CT scan of the head was negative for acute process CT scan of the neck was negative for acute process CT scan of the lumbar spine was negative for acute process CT scan of the abdomen and pelvis was negative for acute process x-ray of the knees bilateral is pending Discharge Plan Discharge Clinical Impression: Paralysis of both lower limbs, GINO (acute kidney injury), Acute dehydration Rhabdomyolysis Qualifiers: Rhabdomyolysis type: traumatic Encounter type: initial encounter Qualified Code(s): T79.6XXA - Traumatic ischemia of muscle, initial encounter Patient Disposition: Acute Care Hospital Condition: Guarded Prognosis Patient Language: Eritrean Prescriptions: No Action quetiapine 200 mg tablet 600 mg PO HS alprazolam 0.5 mg tablet 0.5 mg PO QID calcium carbonate [Calcium 600] 600 mg calcium (1,500 mg) Tablet 600 mg PO BID fluoxetine 20 mg capsule 20 mg PO DAILY Centrum Silver 400-250 mcg Tablet,Chewable 1 tablet PO DAILY Trelegy Ellipta 200-62.5-25 mcg blister with device 1 inh inhalation DAILY 30 Days Qty: 60 5RF albuterol sulfate 90 mcg/actuation HFA aerosol inhaler 1 - 2 puff INHALATION Q4-6H PRN (Reason: shortness of breath or wheezing) Qty: 8.5 2RF metoprolol tartrate 25 mg tablet 25 mg PO BID nitroglycerin 0.4 mg tablet, sublingual 0.4 mg sublingual Q5M PRN (Reason: Chest Pain) Rx Instructions: do not exceed 3 doses per episode rosuvastatin 5 mg tablet 5 mg PO DAILY triamcinolone acetonide 0.1 % cream 1 applic topical BID PRN (Reason: Rash) cholecalciferol (vitamin D3) [Vitamin D3] 25 mcg (1,000 unit) capsule 25 mcg PO DAILY aspirin 81 mg Tablet,Delayed Release (Dr/Ec) 81 mg PO DAILY mirtazapine 45 mg tablet 45 mg PO HS fexofenadine [Misti] 180 mg Tablet 180 mg PO HS PreserVision AREDS-2 250-90-40-1 mg Capsule 1 tablet PO BID albuterol sulfate 2.5 mg /3 mL (0.083 %) solution for nebulization 2.5 mg inhalation BID montelukast 10 mg tablet See Rx Instructions .ROUTE .COMPLEX Rx Instructions: 10 mg orally ;TAKE 1 TABLET EVERY DAY AT 5PM (DME) blood-glucose meter [True Metrix Air Glucose Meter] Kit See Rx Instructions .ROUTE .COMPLEX Qty: 1 12RF Dose Instruction: USE DIRECTED Rx Instructions: USE DIRECTED gabapentin 800 mg tablet See Rx Instructions .ROUTE .COMPLEX Qty: 270 3RF Dose Instruction: TAKE 1 TABLET THREE TIMES DAILY Rx Instructions: TAKE 1 TABLET THREE TIMES DAILY (DME) True Metrix Glucose Test Strip Strip See Rx Instructions .Route Qty: 50 2RF Rx Instructions: Use to test glucose twice per week furosemide 40 mg tablet See Rx Instructions .ROUTE .COMPLEX Qty: 180 3RF Dose Instruction: TAKE 1 TABLET TWICE DAILY Rx Instructions: TAKE 1 TABLET TWICE DAILY (DME) lancets [TRUEplus Lancets] 30 gauge misc See Rx Instructions .Route Qty: 100 1RF Rx Instructions: test twice weekly (DME) blood-glucose meter [True Metrix Air Glucose Meter] Misc See Rx Instructions .ROUTE .COMPLEX Qty: 1 3RF Dose Instruction: USE DIRECTED Rx Instructions: USE DIRECTED warfarin 3 mg tablet See Rx Instructions .ROUTE .COMPLEX Qty: 90 3RF Dose Instruction: TAKE 1 TABLET EVERY DAY Rx Instructions: TAKE 1 TABLET EVERY DAY hydrocodone-acetaminophen 7.5-325 mg tablet 1 - 2 tablet PO Q4H PRN (Reason: pain) Qty: 180 0RF Follow-up/Referrals: Navin Sainz MD [Primary Care Provider] - Time of Disposition: 21:33
--- NOTE | 2024-12-24 19:30 | PC.NURSE ---
PATIENT WAS TAKEN TO CT VIA STRETCHER
--- NOTE | 2024-12-24 19:49 | PC.NURSE ---
GAGAN WITH LAB AT THE BEDSIDE. PATIENT WAS PLACED ON BEDPAN. STATES SHE NEEDS SOME TIME.
[2024-12-24 20:04] LABS: Basophils Absolute Auto 0.05 K/mm3 (0.00-0.10); Basophils Percent Auto 0.6 % (0.0-1.0); Eosinophils Absolute Auto 0.09 K/mm3 (0.02-0.50); Eosinophils Percent Auto 1.1 % (1.0-6.0); Hematocrit 38.9 % (35.0-42.0); Hemoglobin 12.6 g/dL (11.7-13.8); Immature Granulocyte Absolute 0.02 K/mm3 (0.00-0.00); Immature Granulocyte Percent A 0.2 % (0.0-0.0); Lymphocytes Absolute Auto 2.53 K/mm3 (1.10-4.50); Mean Corpuscular HGB Conc 32.4 g/dL (32-36); Mean Corpuscular Hemoglobin 29.6 pg (27.0-31.0); Mean Corpuscular Volume 91.5 fL (78.0-102.0); Mean Platelet Volume 11.6 fl (9.2-11.8); Monocytes Absolute Auto 0.88 K/mm3 (0.10-0.90); Monocytes Percent Auto 10.4 % (2.0-11.0); Neutrophils Absolute Auto 4.86 K/mm3 (1.70-7.20); Neutrophils Percent Auto 57.7 % (50.0-70.0); Platelet Count Result 195 K/mm3 (150-420); Red Blood Count 4.25 M/mm3 (4.20-5.40); Red Cell Distribution Width 13.4 % (11.6-14.4); White Blood Count 8.4 K/mm3 (4.8-10.8)
[2024-12-24 20:24] LABS: INR 2.2; Partial Thromboplastin Time 37.8 Sec (23.9-30.70); Prothrombin Time 22.3 Seconds (9.50-12.1)
[2024-12-24 20:28] LABS: Alanine Aminotransferase 44 U/L (14-59); Albumin Level 3.9 g/dL (3.4-5.0); Alkaline Phosphatase 128 U/L (46-116); Anion Gap 9 mmol/L (4-12); Aspartate Amino Transferase 37 U/L (15-37); Bilirubin,Total 0.4 mg/dL (0.00-1.00); Blood Urea Nitrogen 20 mg/dL (7-18); Calcium 9.8 mg/dL (8.5-10.1); Carbon Dioxide 33 mmol/L (21-32); Chloride 104 mmol/L (98-108); Creatine Kinase 337 U/L (26-192); Estimated CRCL calculation 42 ml/min; Estimated Glomerular Filt Rate 34; Glucose 106 mg/dL (70-99); Osmolality Calculated 304 mOsm/kg (285-295); Potassium 3.6 mmol/L (3.5-5.1); Sodium 146 mmol/L (136-145); Total Protein 7.6 g/dL (6.4-8.2)
[2024-12-24 20:41] LABS: Add Urine Microscopic? YES; Appearance Urine Clear (Clear); Bilirubin Urine Negative (Negative); Blood Urine Negative (Negative); Color Urine Light Yellow (Yellow); Glucose Urine UA Negative (Negative); Ketones Urine Negative (Negative); Leukocyte Esterase Ur 1+ LEU/UL (Negative); Nitrate Urine Negative (Negative); Protein Urine Negative (Negative); Urobilinogen Urine 0.2 mg/dL (0.2-1.0)
[2024-12-24] MEDS: SODIUM CHLORIDE 0.9% IV 1,000 ML 999 ML IV CONT (20:42)
[2024-12-24] MEDS: MORPHINE SULFATE (*CRX) 4 MG/ML INJ IV PUSH ×2 (20:47→23:47)
[2024-12-24 20:50] LABS: Bacteria Urine None seen /hpf; RBC Urine 0-2 /hpf (0-2); Squamous Epithelial Cell Urine Occasional /hpf (Few); WBC Urine 0-3 /hpf (0-3)
--- NOTE | 2024-12-24 21:08 | PC.NURSE ---
SPOKE WITH PATIENT ABOUT TRANSFER TO ANOTHER FACILITY. SHE REQUESTED THAT I CALL HER TO COME BACK INSIDE TO HELP MAKE DECISION OF WHERE TO GO
--- NOTE | 2024-12-24 21:41 | PC.NURSE ---
XRAY AT THE BEDSIDE
--- NOTE | 2024-12-24 21:52 | PC.NURSE ---
PATIENT UPDATED THAT DR SPEARS IS WAITING ON RETURN CALL FROM DR SMITH AT [facility]. VERBALIZED UNDERSTANDING.
--- NOTE | 2024-12-24 22:25 | PC.NURSE ---
CURRENTLY WAITING ON RETURN CALL FROM DR SMITH. PATIENT WAS REPOSITIONED ON STRETCHER. PILLOW PLACED BEHIND HER BACK SO SHE COULD GET SOME RELIEF OF PRESSURE TO HER BOTTOM. IS AT HER SIDE. CALL LIGHT IN REACH
--- NOTE | 2024-12-24 23:39 | PC.NURSE ---
UPDATED PATIENT ON ACCEPTANCE TO [facility] IN [place]. CURRENTLY AWAITING BED ASSIGNMENT. PATIENT AND VERBALIZED UNDERSTANDING
[2024-12-24] MEDS: KETOROLAC 30 MG/ML VIAL (*BKC) IV PUSH (23:47)
--- NOTE | 2024-12-24 23:52 | PC.NURSE ---
PATIENT PLACED ON BED KHAN. CONTINUES TO REPORTS DECREASED SENSATION TO BILATERAL LOWER EXTREMITIES
[2024-12-25 00:33] VITALS: BP 133/75; PULSE 90; RESP 14; O2SAT 94
[2024-12-25 01:15] VITALS: BP 143/70; PULSE 86; RESP 14; O2SAT 96
--- OUTSIDE RECORDS SUMMARY | 2024-12-25 15:10 | XMS_ITS | Data Portability ---
Author Organization [place] [facility] [employer], Main Office Address [address] [place] [address] Care Team Providers Care Cut To Length Operator Name Role Phone YUDELKA SAMAYOA Primary Care Provider YUDELKA SAMAYOA Referring Provider Assessment Encounter Date Assessment Date Assessment LastModified by Organization Details LastModified Time 05/20/2023 05/20/2023 67-year-old female presents for evaluation of her right shoulder. She has chronic shoulder problems and previously saw Dr. Mims. She has a rotator cuff tear which has failed extensive conservative management including prednisone, activity modification, and cortisone injection. She had minimal improvement with the injection. She is on Coumadin so is unable to take anti-inflammator ies. This has been going on since November, she denies any acute injury. She is right-hand dominant. She is retired. Review of systems per patient questionnaire Physical exam: She is on oxygen. She has diffuse soreness around the shoulder. She also has pain over the AC joint. She has about 60 of active elevation, 10 of external rotation, internal rotation to the back pocket. She has intact belly press, positive Dean, positive Neer and Chavarria. Exam limited by effort because of her pain. Neurovascular intact throughout. MRI was reviewed, demonstrating a full-thickness rotator cuff tear, primarily involving the supraspinatus. 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 We discussed that although rotator cuff repair is an option, given her age and tissue quality, she has a high chance of failure. This would also involve a lengthy rehab process. We discussed that otherwise, if we went in there and saw the tissue was too poor quality to be repaired, we would have to do debridement and talk about other options. The other option would be to do a reverse total shoulder arthroplasty. This would give her the most consistent results in terms of pain relief and improvement in motion. She wants definitive treatment and does not want to have multiple surgeries. She will need to get a CT scan for preop planning. She will also need clearance from her PCP as well as an evaluation by Anesthesia, and she will need to be off Coumadin prior to surgery. Risks, benefits, and alternatives to surgery were discussed with the patient. Risks include but are not limited to pain, stiffness, infection, bleeding, blood clot, injury to other structures including nerves or blood vessels, need for future surgery, and anesthesia risks. We discussed the goal of surgery is to improve symptoms but there is no guarantee of improvement and it is possible the patient's condition is worse after surgery. Patient agreed and would like to proceed. Not available 05/20/2023 22:53:58 07/01/2023 07/01/2023 67-year-old female presents for follow-up of her right shoulder status post RT SA on 06/19/2023. Overall she is doing well, reports feeling better, currently rates her pain is 6 to 7/10. She has been taking hydrocodone as well as Flexeril and anti-inflammator ies. She has remain in the sling and doing pendulum exercises. Incision clean dry intact with Dermabond still covering. The tails of the running suture were trimmed. She has no tenderness around the wound. No pain with gentle pendulums. Sensation intact to light touch throughout. Overall she is progressing as expected. We will keep her in the sling. We renewed her prescription for Flexeril. We discussed the rehab process, and we also gave her a printout of the rehab protocol. We will see her back in 2 weeks for her next follow-up appointment. Not available 07/01/2023 23:02:21 07/22/2023 07/22/2023 67-year-old female presents for follow-up of her right shoulder status post reverse total shoulder arthroplasty on 06/19/2023. Overall she is feeling better, has no complaints. She has been doing some physical therapy with gentle exercises, and that has been going well. She currently rates her pain as 5/10. She is not taking any pain medications. Physical exam: Incision well healed without erythema drainage or other signs of infection. She has some slight soreness around the surgical site. No pain with gentle shoulder range of motion. Neurovascular intact throughout. X-rays of the shoulder were obtained reviewed, demonstrating the implant intact and in place, in appropriate position Will continue with the rehab protocol. We renewed her PT order and will plan to progress range of motion starting about 2 weeks, when she is 6 weeks postop. We also printed out a copy of the rehab protocol to show her. We will see her back in 2 months, or sooner as needed. Not available 07/22/2023 12:34:12 09/17/2023 09/17/2023 67-year-old female presents for follow-up of her right shoulder status post reverse total shoulder arthroplasty on 06/19/2023. Overall she is feeling well, has no complaints. She has been working with physical therapy on ROM and strengthening and feelsl that she has made a lot of improvement. She is not taking any pain medications for pain. Physical exam: Incision well healed without erythema drainage or other signs of infection. No pain with gentle shoulder range of motion. Neurovascular intact throughout. At this point she can continue to work with therapy. She is scheduled out until September, if she would like to continue after that we can renew her order. We will see her back at 1 year post op, in May, with new xrays. She may call with any issues before then. Her and her are in agreement with this plan. [email or web address] Not available 09/17/2023 11:55:14 06/02/2024 06/02/2024 68-year-old female presents for follow-up of her right shoulder, status post reverse total shoulder arthroplasty on 06/19/2023. She reports originally doing well, but then for the past 4 months or so developing pain in the shoulder. She also noticed a pouch of fat in her anterior shoulder and is concerned about that. She has been taking hydrocodone for the pain. She also says that it is very sensitive to temperature. She currently rates her pain as 5/10. Incisions clean dry intact without any signs of infection. The area of swelling she points to is over the medial aspect of the incision, appears to be a contour in her skin. She has no pain with gentle pendulums, but has pain in the shoulder when she is moving or lifting. She has good strength with internal external rotation elevation. X-rays were reviewed, demonstrating hardware intact and in place, although there appears to be area of lucency in the posterior glenoid around the area of the screws, intact cortex She wants to try a course of conservative management with shoulder exercises 1st. We will see her back after this in about 2 months. At that point if she is still having problems, we would do further workup of her shoulder, which would include ESR, CRP, CBC, to rule out infection with her arthroplasty 1st. Not available 06/04/2024 16:00:00 Plan of Treatment Reminders Order Date Submit Date Provider Last Modified By Organization Details Last Modified Time Details Appointments None recorded. Lab None recorded. Referral physical therapist referral - continuati on of therapy for for R shoulder. surgery date 06/19/20232022 023 [facility], [address], [place], [address], 3 14:00:59 Procedures None recorded. Surgeries None recorded. Imaging XR, shoulder 2023 024 [email or web address] [facility] [place], [address], [place], [address], 4 08:29:45 XR, shoulder 2022 023 [facility] [place], [address], [place], [address], 3 23:56:12 CT, shoulder, w/o contrast - JOSUE COLLAZO REVERSE TOTAL SHOULDER PROTOCOL 2022 023 [facility] ([facility]), [address] [place], [address], 3 14:44:57 Medication Orders cyclobenza zack 10 mg tablet 2022 023 [id number], [address], [id number], 4 15:10:01 Patient TargetsNo targets recorded. Patient InstructionsNo instructions recorded. Reason for Referral Physical Therapist Referral for Pain of right shoulder joint R shoulder continuation of therapy for for R shoulder. surgery date 06/19/2023 Referring Physician: Vimal Rivera, Orthopedic Surgery, Encounter Date: 07/22/2023 Results Created Date Observation Date Name Description Value Unit Range Abnormal Flag Note LastModifiedBy Organization Detail LastModifiedTime 05/05/20 23 MRI, shoul deangelo, w/o contr ast [facility] [address] [place] [address] Patien t Name: SHERITA ARENAS Access ion #: [id number] Sex: F : 1955 Dictat ed By: Jef Avalos Attend ing Physic christiano: , Alfredo alonso Physic christiano: CASSIE AGUILAR Exam Date: 2022 08:29 AM Exam Name: MRI SHOULD ER RT WO Admitt ing Diagno sis(es ): STUDY: MRI SHOULD ER COMPAR SONAM: None HISTOR Y: should er pain. TECHNI QUE: Multip lanar and multis equenc e images were obtain ed. FINDIN GS: Bone marrow and osseou s struct ures: The bone marrow signal intens ity is abnorm al with benign cystic change s presen t within the margarita l head.. No infilt rative lesion s or bony contus ion is seen. Narrow ing of the glenoh umeral joint is seen with osteop hyte format ion noted. There is modera te glenoh umeral joint effusi on Acromi oclavi cular joint: No hypert ropic change s are noted in the acromi oclavi cular joint. The acromi o-clav icular joint capsul e is normal . Rotato r cuff: Comple te tear of the supras pinatu s tendon noted. Modera te retrac tion and atroph y. Spinat us teres minor are intact . Both tear of the sevent h noted with mild retrac tion Gleno- margarita l joint and labrum : There is no eviden ce of glenoh umeral joint sublux ation. No osteoc hondra l defect s are seen. The anteri or labrum and the wage adjuster ior labrum are grossl y normal . The visual ized portio ns of the superi or, middle and inferi or glenoh umeral ligame nts are normal . Biceps tendon : The long head of the biceps tendon is of normal morpho logy, locati on and signal . IMPRES SOPHIA: 1. Supras pinatu s and subsca pulari s tendon s comple te tear. 2. 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 Large joint effusi on is seen Electr onical ly Signed by: Jef Avalos at 2022 12:31: 57 PM Page 1 [email or web address]) [address] [place], [address], 05/05/2023 13:51:55 05/29/20 23 05/29/2023 CT, shoul deangelo, w/o contr ast No observ ation record ed. [email or web address] [facility] [address] [place], [address], 06/02/2023 17:13:56 06/23/20 23 06/23/2023 XR, shoul deangelo No observ ation record ed. [email or web address] [facility] [address] [place], [address], 06/24/2023 10:30:27 07/23/20 23 XR, shoul deangelo No observ ation record ed. [facility] [place] [address], [place], [address], 07/23/2023 23:56:03 06/02/20 24 XR, shoul deangelo No observ ation record ed. [email or web address] [facility] [place] [address], [place], [address], 06/02/2024 11:01:17 Result Notes None recorded. Problems Name Problem SNOMED Code Status Onset Date Resolution Date Notes Provider Name and Address Organization Details Recorded Time Disorder of shoulder 118714444 Active Not Available [facility] 3 14:11:26 History of total knee arthroplas ty 0892467214475 Active 2018 Not Available [facility] 3 14:11:26 Disorder of sacrum 53797014 Active Not Available [facility] 3 14:11:27 Radiothera py follow-up 281460812 Active Not Available [facility] 3 14:11:27 Partial thickness rotator cuff tear 511562724 Active Not Available [facility] 3 14:11:27 Osteoarthr itis of knee 233941303 Active 2018 Not Available [facility] 3 14:11:27 Enthesopat hy of hip region 88789620 Active Not Available [facility] 3 14:11:27 Osteoarthr itis 815198930 Active Not Available [facility] 3 14:11:27 Adhesive capsulitis of shoulder 682640422 Active Not Available [facility] 3 14:11:27 Pain of right shoulder joint 7657875106218 9100 Active 2022 NICK Young, [place] [facility] 3 15:02:51 Tendinitis of right rotator cuff 4008334816690 9104 Active 2022 Cassie Mims MD [address], [address], [place], [address] , [place] [facility] 3 15:45:13 Partial thickness rotator cuff tear 242712234 Active 2022 Kayli woods, [place] [facility] 3 16:00:57 Rupture of rotator cuff of right shoulder 7064075266240 9103 Active 2022 Vimal Rivera MD [address], [address], [place], [address] , [facility] [employer] [facility] 12:26:33 Problem Notes None recorded. Procedures Surgical History Date Name Laterality Status Provider Name and Address Organization Details Recorded Time 06/19/20 arthroplasty of right shoulder completed NICK Miller [facility] [employer] [facility] 05/20/2024 15:07:28 04/15/20 Ortho - Cortisone Injection completed Cassie Mims MD [address] [facility] [address], [address], [facility] [employer] [facility] 04/15/2023 15:43:39 Imaging Results Imaging Date Name Status LastModified by Organiz ation Details LastModified Time 05/05/2023 MRI, shoulder, w/o contrast completed [email or web address] [facility] [address] [place], [address], 05/05/2023 13:51:55 05/29/2023 CT, shoulder, w/o contrast completed [email or web address] [facility] [address] [place], [address], 06/02/2023 17:13:56 06/23/2023 XR, shoulder completed [email or web address] [facility] [address] [place], [address], 06/24/2023 10:30:27 07/23/2023 XR, shoulder completed [facility] [place] [address], [place], [address], 07/23/2023 23:56:03 06/02/2024 XR, shoulder completed [email or web address] [facility] [place] [address], [place], [address], 06/02/2024 11:01:17 Procedure Notes None recorded. Medical Equipment None Reported. Allergies Allergen ID Allergen Name Allergen Category Reaction Reaction Severity Criticality Documentation Date Start Date Code Code System Note Provider Name and Address Organization Details Recorded Time 23311 Iodinated contrast media (substanc e) medicatio n headache nausea Not available Not available Not available 04/15/2023 14185 2003 SNOMED weakn ess Mery Braxton, JASS null, [place] [facility] [place] [employer] 4 10:57:13 Medications Name Sig Start Date Stop Date Status Note LastModified by Organization Details LastModified Time cyclobenzap rine 10 mg tablet TAKE 1 TABLET BY MOUTH THREE TIMES DAILY NEEDED 05/20 completed Not Available Not Available Not Available furosemide 40 mg tablet TAKE 1 TABLET BY MOUTH EVERY MORNING active Not Available Not Available No t Available prednisone 10 mg tablet 05/20 completed Not Available Not Available Not Available cefuroxime axetil 250 mg tablet 06/30 completed Not Available Not Available Not Available azithromyci n 250 mg tablet 05/06 completed Not Available Not Available Not Available alprazolam 1 mg tablet 05/06 completed Not Available Not Available Not Available amitriptyli ne 75 mg tablet TAKE ONE T PO D 06/30 completed Not Available Not Available Not Available hydrocodone 5 mg-acetamin ophen 325 mg tablet 05/06 completed Not Available Not Available Not Available prednisone 20 mg tablet TAKE 2 TABLETS BY MOUTH FOR 4 DAYS THEN 1 TABLET FOR 4 DAYS THEN 1/2 TABLET FOR 4 DAYS 05/20 completed Not Available Not Available Not Available quetiapine 200 mg tablet TK 2 TS PO Q NIGHT HS active Not Available Not Available No t Available warfarin 2.5 mg tablet Take 1 tablet every day by oral route. 05/20 completed Not Available Not Available Not Available morphine ER 30 mg tablet,exte nded release TAKE 1 TABLET BY MOUTH EVERY 12 HOURS 06/02 completed Not Available Not Available Not Available tramadol 50 mg tablet 05/06 completed Not Available Not Available Not Available triamcinolo ne acetonide 0.1 % topical cream APPLY TOPICALLY TO THE AFFECTED AREA TWICE DAILY 06/30 completed Not Available Not Available Not Available warfarin 3 mg tablet TAKE 1 TABLET BY MOUTH DAILY active Not Available Not Available No t Available prednisone 10 mg tablets in a dose pack Take 1 tab by mouth, 3 times a day for 3 daysTake 1 tab by mouth 2 times a day for 2 daysTake 1 tab by mouth once a day for 1 day 05/20 completed Not Available Not Available Not Available alprazolam 0.5 mg tablet TAKE 1 TABLET BY MOUTH FOUR TIMES DAILY active Not Available Not Available No t Available amitriptyli ne 25 mg tablet 06/30 completed Not Available Not Available Not Available estradiol 1 mg tablet TK 1 T PO QD 06/30 completed Not Available Not Available Not Available gabapentin 800 mg tablet Take 1 tablet 3 times a day by oral route. 05/20 completed Not Available Not Available Not Available ciprofloxac in 0.3 % eye drops 05/06 completed Not Available Not Available Not Available Kenalog 10 mg/mL suspension for injection Take 20 mg by injection route. 05/20 completed [facility]: [phone] Not Available Not Available Not Available hydrocodone 7.5 mg-acetamin ophen 325 mg tablet TAKE 1 TO 2 TABLETS BY MOUTH EVERY 4 HOURS NEEDED FOR PAIN active Not Available Not Available No t Available warfarin 5 mg tablet 05/06 completed Not Available Not Available Not Available progesteron e micronized 200 mg capsule Take 1 capsule every day by oral route for 12 days. 05/20 completed Not Available Not Available Not Available nitroglycer in 0.[address] 1 TABLET UNDER THE TONGUE EVERY 5 MINUTES NEEDED FOR CHEST PAIN. MAY REPEAT EVERY 5 MINUTES UP TO 3 DOSES TOTAL 05/20 completed Not Available Not Available Not Available mirtazapine 45 mg tablet TK 1 T PO QHS active Not Available Not Available No t Available estradiol 2 mg tablet 05/06 completed Not Available Not Available Not Available montelukast 10 mg tablet active Not Available Not Available Not Available furosemide 20 mg tablet TAKE 1 TABLET BY MOUTH EVERY MORNING 05/20 completed Not Available Not Available Not Available clobetasol 0.05 % topical ointment APPLY TOPICALLY TO THE AFFECTED AREA TWICE DAILY FOR 2 WEEKS 06/02 completed Not Available Not Available Not Available warfarin 1 mg tablet 05/06 completed Not Available Not Available Not Available cefuroxime axetil 500 mg tablet 06/30 completed Not Available Not Available Not Available levofloxaci n 500 mg tablet 05/06 completed Not Available Not Available Not Available albuterol sulfate HFA 90 mcg/actuati on aerosol inhaler INHALE 1 TO 2 PUFFS BY MOUTH EVERY 4 TO 6 HOURS NEEDED FOR SHORTNESS OF BREATH OR WHEEZING 05/20 completed Not Available Not Available Not Available ondansetron 4 mg disintegrat ing tablet DISSOLVE 2 TABLETS BY MOUTH EVERY 6 HOURS NEEDED FOR FOR NAUSEA 05/20 completed Not Available Not Available Not Available fluoxetine 20 mg capsule TAKE ONE C PO D active Not Available Not Available No t Available Ambien 10 mg tablet Take 1 tablet every day by oral route. 05/20 completed Not Available Not Available Not Available estradiol 0.1 mg/24 hr weekly transdermal patch 05/06 completed Not Available Not Available Not Available diazepam 5 mg tablet 06/30 completed Not Available Not Available Not Available tobramycin 0.3 %-dexametha sone 0.1 % eye drops,suspe nsion 05/06 completed Not Available Not Available Not Available enoxaparin 100 mg/mL subcutaneou s syringe 05/20 completed Not Available Not Available Not Available Premarin 1.25 mg tablet 06/30 completed Not Available Not Available Not Available rosuvastati n 5 mg tablet active Not Available Not Available Not Available metoprolol tartrate 25 mg tablet active Not Available Not Available No t Available duloxetine 30 mg capsule,del ayed release 05/06 completed Not Available Not Available Not Available lactulose 10 gram/15 mL oral solution 05/06 completed Not Available Not Available Not Available Vesicare 5 mg tablet 05/06 completed Not Available Not Available Not Available Lyrica 150 mg capsule 05/06 completed Not Available Not Available Not Available Seroquel 600 MG 06/30 completed Not Available Not Available Not Available ropivacaine (PF) 5 mg/mL (0.5 %) injection solution Take 20 mg by injection route. 05/20 completed [facility] [phone] Not Available Not Available Not Available TRUEplus Lancets 30 gauge active Not Available Not Available Not Available True Metrix Glucose Test Strip active Not Available Not Available N ot Available True Metrix Air Glucose Meter active Not Available Not Available Not Available True Metrix Air Glucose Meter kit 05/20 completed Not Available Not Available Not Available Trelegy Ellipta 100 mcg-62.5 mcg-25 mcg powder for inhalation INHALE 1 PUFF BY MOUTH DAILY. RINSE MOUTH AND SPIT AFTER EACH USE 05/20 completed Not Available Not Available Not Available Miguel Ellipta 200 mcg-62.5 mcg-25 mcg powder for inhalation INHALE 1 PUFF BY MOUTH DAILY FOR ASTHMA 05/20 completed Not Available Not Available Not Available DropSafe Alcohol Prep Pads active Not Available Not Available No t Available Vitals Date Recorded Body height Body mass index (BMI) Body weight Provider Name and Address Organization Details Last Updated DateTime 05/20/2023 170.18 cm 39.2 kg/m2 971055.09 g Alexandra Fitzgerald Mandi [employer] [facility] [employer] 05/20/2023 09:14:40 Date Recorded Body height Body mass index (BMI) Body weight Provider Name and Address Organization Details Last Updated DateTime 07/01/2023 170.18 cm 39.2 kg/m2 053928.09 g Mery Braxton CNA [employer] [facility] [employer] 07/01/2023 10:13:44 Date Recorded Body height Body mass index (BMI) Body weight Pain severity - 0-10 verbal numeric rating [Score] - Reported Provider Name and Address Organization Details Last Updated DateTime 07/22/2023 170.18 cm 39.2 kg/m2 438054.09 g 5 Alexandra Fitzgerald Mandi [employer] [facility] [employer] 07/22/2023 11:07:43 Date Recorded Body height Body mass index (BMI) Body weight Provider Name and Address Organization Details Last Updated DateTime 09/17/2023 170.18 cm 38.4 kg/m2 560801.13 g Mery Braxton CNA [facility] [employer] 09/17/2023 11:34:03 Date Recorded Body height Body mass index (BMI) Body weight Provider Name and Address Organization Details Last Updated DateTime 06/02/2024 170.18 cm 38.4 kg/m2 419598.13 g Mery Braxton CNA [facility] [employer] 06/02/2024 10:56:00 Social History Question Answer Notes LastModified by Organizat ion Details LastModified Time Tobacco Smoking Status Never Smoker JASS Cai [facility] [employer] 06/02/2024 10:58:13 What Is Your Level Of Alcohol Consumption? None [email or web address] Information not available 06/02/2024 Sex: Unknown Functional Status None recorded. Mental Status None recorded. Family History Relationship Description Onset Age of this Age Resolved Age Notes LastModified by Organization Details LastModified Time Maternal Grandmother Heart disease [email or web address] Not available 2022 15:15:13 Maternal Grandmother Diabetes mellitus [email or web address] Not available 2023 10:58:03 Maternal Grandfather Family history of stroke [email or web address] Not available 2022 15:15:28 Maternal Uncle Family history of malignant neoplasm [email or web address] Not available 2022 15:15:47 Medical History Condition Response ARTHRITIS Y USE OF BLOOD THINNERS Y ANXIETY DISORDER Y VASCULAR DISEASE Y ANEMIA/BLOOD DISORDER Y BLOOD CLOTS Y URINARY/BLADDER/KIDNEY PROBLEMS Y USE OF NSAIDS Y HEART ARRHYTHMIA Y HYPERTENSION Y Gynecological HistoryNo gynecological history recorded. Obstetrics History GPAL:G 0 P 0 0 0 0 Past Encounters Encounter ID Performer Location Encounter Start Date Encounter Closed Date Diagnosis/Indication Diagnosis SNOMED-CT Code Diagnosis ICD10 Code Diagnosis Note [id number] Cassie Mims MD [facility] [place] [address] [place] [address] 04/15/2023 14:52:48 04/15/2023 15:49:52 Pain of right shoulder joint [id number] M25.511 Tendinitis of right rotator cuff [id number] M67.656 [id number] Cassie Mims MD [facility] [place] [address] [place] [address] 05/01/2023 12:35:21 05/01/2023 13:33:01 Pain of right shoulder joint [id number] M25.511 Tendinitis of right rotator cuff [id number] M67.923 [id number] Cassie Mims MD [facility] [place] [address] [place] [address] 05/08/2023 10:17:09 05/08/2023 10:48:35 Pain of right shoulder joint [id number] M25.512 [id number] Vimal Rivera MD [facility] [place] [address] [place] [address] 05/20/2023 09:12:16 05/20/2023 09:43:09 Disorder of shoulder [id number] M25.819 Rupture of rotator cuff of right shoulder [id number] M75.834 [id number] Vimal Rivera MD [facility] [place] [address] [place] [address] 07/01/2023 10:08:32 07/01/2023 11:26:27 Pain of right shoulder joint [id number] M25.511 Postoperative visit [id number] Vimal Rivera MD [facility] [place] [address] [place] [address] 07/22/2023 11:01:43 07/22/2023 11:45:53 Pain of right shoulder joint [id number] M25.857 [id number] Vimal Rivera MD [facility] [place] [address] [place] [address] 09/17/2023 11:33:22 09/17/2023 11:59:44 Pain of right shoulder joint [id number] M25.729 [id number] Vimal Rivera MD [facility] [place] [address] [place] [address] 06/02/2024 10:30:56 06/02/2024 11:41:26 Rupture of rotator cuff of right shoulder [id number] M75.101 Pain of ri ght shoulder joint [id number] M25.511 Health Concerns Section Related Observation LastModified by Organization Detai ls LastModified Time None Recorded Concern Status LastModified by Organization Details LastModified Time None Recorded Advance Directives Directive None Recorded Payers Encounter Date Sequence Insurance Name Policy Number Policy Matute Covered Member ID Matute Member ID Guarantor Name 05/20/2023 1 [employer] CLAIMS OFFICE Abi Campbell [id number] Abi Campbell 05/20/2023 [employer] (MEDICARE REPLACEMENT/ ADVANTAGE - PPO) Abi Kate Adrian [id number] Abi V Adrian 07/01/2023 1 [employer] (MEDICARE REPLACEMENT/ ADVANTAGE - PPO) Abi V Adrian [id number] Abi V Adrian 07/01/2023 2 [place] Abi V Adrian [id number] Abi V Adrian 07/22/2023 1 [employer] (MEDICARE REPLACEMENT/ ADVANTAGE - PPO) Abi V Adrian [id number] Abi V Adrian 09/17/2023 1 [employer] (MEDICARE REPLACEMENT/ ADVANTAGE - PPO) Abi V Adrian [id number] Abi V Adrian 06/02/2024 1 [employer] (MEDICARE REPLACEMENT/ ADVANTAGE - PPO) Abi V Adrian [id number] Abi V Adrian OBGyn Episode No OBEpisode recorded.
--- OUTSIDE RECORDS SUMMARY | 2024-12-25 15:10 | XMS_ITS | Clinical Summary ---
Author Organization [facility] [address] Address [address] [place] [address] Care Team Providers Care Concert Or Lecture Hall Manager Name Role Phone Navin Sainz MD Primary Care Prov ider Allergies Active Allergy Reactions Criticality Noted Date Comments Iodinated Contrast Media Nausea only Low 12/06/2020 Medications QUEtiapine (SEROquel) 300 mg tablet Take 2 tablets (600 mg total) by mouth nightly Active ALPRAZolam (XANAX) 0.5 mg tablet 4 (four) times a day Active FLUoxetine (PROzac) 20 mg capsule Take by mouth daily 11/09/2020 Active mirtazapine (REMERON) 45 mg tablet Take 1 tablet (45 mg total) by mouth nightly 12/04/2020 Active HYDROcodone-acet aminophen (NORCO) 7.5-325 mg per tablet TAKE 1 TO 2 TABLETS BY MOUTH FOUR TIMES DAILY NEEDED FOR PAIN 12/07/2020 Active warfarin (COUMADIN) 3 mg tablet Take 2.5 mg by mouth daily 11/13/2020 Active gabapentin (NEURONTIN) 800 mg tablet Take 1 tablet (800 mg total) by mouth 3 (three) times a day 10/12/2020 Active vit C,E-Ut-klnoz-lut ein-zeaxan 250-90-40-1 mg capsule Take by mouth Active gwwlujqk-kpo-SZ- lycopen-lutein 0.4-300-250 mg-mcg-mcg tabletIndication s:Vitamin Deficiency Prevention 1 tablet Active aspirin 81 mg enteric coated tabletIndication s:Other chest pain Take 1 tablet (81 mg total) by mouth daily 30 tablet 11 12/14/2020 Active albuterol HFA (PROVENTIL HFA,VENTOLIN HFA,PROAIR HFA) 90 mcg/actuation inhaler Inhale 2 puffs every 6 (six) hours as needed 03/07/2021 Active nitroglycerin (NITROSTAT) 0.4 mg SL tabletIndication s:Other chest pain Place 1 tablet (0.4 mg total) under the tongue every 5 (five) minutes as needed for chest pain May repeat dose q 5 min, up to 3 doses total 90 tablet 1 03/25/2022 Active furosemide (LASIX) 40 mg tablet Take 1 tablet (40 mg total) by mouth 2 (two) times a day 04/09/2023 Active Trelegy Ellipta 200-62.5-25 mcg inhaler INHALE 1 PUFF BY MOUTH DAILY FOR ASTHMA 04/17/2023 Active montelukast (SINGULAIR) 10 mg tablet Take 1 tablet (10 mg total) by mouth nightly Active cholecalciferol 25 mcg (1,000 unit) tablet Take 1 tablet (1,000 Units total) by mouth daily Active rosuvastatin (CRESTOR) 5 mg tabletIndication s:Hypercholester emia TAKE 1 TABLET EVERY DAY 90 tablet 3 08/05/2024 Active metoprolol tartrate (LOPRESSOR) 25 mg immediate release tabletIndication s:Sinus tachycardia,PVC' s (premature ventricular contractions) TAKE 1 TABLET TWICE DAILY 180 tablet 3 08/05/2024 Active Active Problems Problem Noted Date Diagnosed Date Morbid (severe) obesity due to excess calories 0 03/25/2022 Body mass index 40.0-44.9, adult ([facility]) 03/25 Stage 2 chronic kidney disease 09/24/2021 LVH (left ventricular hypertrophy) 03/15/2021 Hypercholesteremia 03/15/2021 Chronic pulmonary embolism without acute cor pul monale 01/15/2021 Other chest pain 12/14/2020 MASTERS (dyspnea on exertion) 12/14/2020 PVC's (premature ventricular contractions) 12/14 Hx of pulmonary embolus 08/25/2018 Contrast media allergy 08/25/2018 Resolved Problems Problem Noted Date Diagnosed Date Resolved Date Sinus tachycardia 01/15/2021 09/24/2021 Lipid screening 08/25/2018 03/15/2021 Abnormal stress test 08/25/2018 021 Surgical History Surgery Date Site/Laterality Comments [place] APPENDECTOMY Appendectomy - (Added by TW Conv) [place] LIG/TRNSXJ FLP TUBE ABDL/ VAG APPR UNI/BI Tubal Ligation - (Added by TW Conv) [place] NEUROPLASTY &/TRANSPOS ME DAVID NRV CARPAL TUNNE Neuroplasty Decompression Median Nerve At Carpal Tunnel - (Added by TW Conv) BACK SURGERY Back Surgery - (Added by TW Conv) Medical History Medical History Date Comments Gallstones Cataracts, bilateral Anxiety and depression Hx of pulmonary embolus 2018 DVT (deep venous thrombosis) (HCC) 1989 Social History Tobacco Use Types Packs/Day Years Used Date Smoking Tobacco: Never Smokeless Tobacco: Never Tobacco Cessation:Counseling Given: Not Answered AUDIT-C Answer Date Recorded Q1: How often do you have a drink containing alc ohol? 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 Gender Identity Not on file Sexual Orientation Not on file Obstetrics History Last Filed Vital Signs Vital Sign Reading Time Taken Comments Blood Pressure 110/68 01/05/2024 9:09 AM CDT Pulse 70 01/05/2024 9:09 AM CDT Temperature - - Respiratory Rate - - Oxygen Saturation 96% 01/05/2024 9:09 AM CDT W/o2 Inhaled Oxygen Concentration - - Weight 111.3 kg (245 lb 4.8 oz) 01/05/2024 9:09 AM CDT Height 170.2 cm (5' 7 ) 01/05/2024 9:09 AM CDT Body Mass Index 38.42 01/05/2024 9:09 AM CDT Plan of Treatment Health Maintenance Due Date Last Done Comments Breast Cancer Screening-Mammogram 1957 Colon Cancer Screening-Colonoscopy 1957 Depression Screening 1957 Fall Risk Assessment 1957 Hepatitis C Screening 1957 Osteoporosis Screening-Bone Density Scan 1957 DTaP/Tdap/Td Vaccine (1 - Tdap) 1968 Hepatitis B Screening 11/02/1975 Pneumococcal vaccine 65+ (1 of 2 - PCV) 1976 Zoster Vaccine (1 of 2) 11/02/2007 Well Visit 65+ 2022 Influenza Vaccine (#1) 2024 06/24/2021 Insurance HU[employer]NA CHOICE MEDICARE PPO HU[employer]NA CHOICE MEDICARE PPO HU[employer]NA CHOICE MEDICARE PPO Care Teams Concert Or Lecture Hall Manager Relationship Specialty Start Date End Date Navin Sainz MD [address] [place] [address] PCP - General 07/31/17
--- OUTSIDE RECORDS SUMMARY | 2024-12-25 15:10 | XMS_ITS | CONTINUITY OF CARE DOCUMENT ---
Author Name camron lyon Address Unknown Organization [facility] Address [address] [place] [address] Phone [phone] Care Team Providers Care Groover And Striper Operator Name Role Phone Adair Philip MD Unavailable [phone] Adair Philip MD Unavailable [phone] INSURANCE PROVIDERS Payer name Policy type / Coverage type [place] red republican ID HUMANA PPO O [id number]
--- OUTSIDE RECORDS SUMMARY | 2024-12-25 15:10 | XMS_ITS | Clinical Summary ---
Author Organization [facility] Address [address] [place] [address] Care Team Providers Care Marketing Copywriter Name Role Phone Navin Sainz MD Primary Care Provider [phone] Allergies Active Allergy Reactions Criticality Noted Date Comments Iodine Nausea Only Low 12/06/2020 Medications warfarin (COUMADIN) 2.5 MG tablet daily. 1 Active QUEtiapine 300 MG tablet Take 600 mg by mouth daily. Active gabapentin 800 MG tablet Take 800 mg by mouth 3 (three) times daily. 1 Active progesterone 200 MG capsule progesterone micronized 200 mg capsule Active HYDROcodone-acet aminophen 7.5-325 MG tablet hydrocodone 7.5 mg-acetaminophen 325 mg tablet 1 Active FLUoxetine 20 MG capsule Take 20 mg by mouth daily. 1 Active ALPRAZolam 0.5 MG tablet Take 0.5 mg by mouth 4 (four) times daily. 1 Active melatonin 5 MG tablet Take 3 mg by mouth nightly at bedtime. Active Calcium Carbonate-Vit D-Min (CALCIUM 1200 OR) Takes 600mg. Twice a day = 1200mg Active Multiple Vitamins-Mineral s (CENTRUM SILVER OR) Take by mouth daily. Active Multiple Vitamins-Mineral s (PRESERVISION AREDS OR) Take by mouth 2 (two) times daily. Active mirtazapine 45 MG tablet 45 mg nightly. 1 Active albuterol sulfate HFA (VENTOLIN HFA) 108 (90 Base) MCG/ACT inhalerIndicatio ns:Moderate persistent asthma without complication (HHS/HCC) INHALE 2 PUFFS BY MOUTH INTO LUNGS EVERY 6 HOURS NEEDED 18 g 1 Active CARVEDILOL 6.25 MG tabletIndication s:Palpitations TAKE 1 TABLET(6.25 MG) BY MOUTH TWICE DAILY 60 tablet 3 1 Active fluticasone-salm eterol (WIXELA INHUB) 250-50 MCG/DOSE inhalerIndicatio ns:Moderate persistent asthma without complication (HHS/HCC) Inhale 1 puff into the lungs 2 (two) times daily. 60 each 11 2 Active BIPAP MACHINEIndicatio ns:Obstructive sleep apnea (adult) (pediatric) BiPAP. Inspiration pressure 20. Expression pressure of 14. Obstructive sleep apnea. G47.33. Please provide patient with mask, tubing, harness, humidity and all supplies for her BiPAP machine. 1 Units 2 Active montelukast (SINGULAIR) 10 MG tabletIndication s:Moderate persistent asthma without complication (HHS/HCC) TAKE 1 TABLET (10 MG) BY MOUTH DAILY AT 5 PM 90 tablet 3 2 Active Active Problems Problem Noted Date Diagnosed Date Obstructive sleep apnea (adult) (pediatric) 04/26 Chronic pulmonary aspiration 05/21/2021 Shortness of breath 02/24/2021 Moderate persistent asthma without complication (HHS/HCC) 02/24/2021 Resolved Problems Problem Noted Date Diagnosed Date Resolved Date Snoring 02/24/2021 05/21/2021 Family History Relation Status Comments Mother Other Adopted Social History Tobacco Use Types Packs/Day Years Used Date Smoking Tobacco: Never Smokeless Tobacco: Never Tobacco Cessation:Counseling Given: No Alcohol Use Standard Drinks/Week Comments Never 0 (1 standard drink = 0.6 oz pur e alcohol) PHQ-2 Answer Date Recorded PHQ-2 Score - If the patient scores above 3, please move on to questions 3-9 2 02/21/2021 Comments Unknown Sex and Gender Information Value Date Recorded Sex Assigned at Not on file Legal Sex Female 1:03 PM CDT Gender Identity Not on file Sexual Orientation Not on file Last Filed Vital Signs Vital Sign Reading Time Taken Comments Blood Pressure 156/100 08/22/2021 10:55 AM MACHINE FARMWORKER Pulse 72 08/22/2021 10:55 AM MACHINE FARMWORKER Temperature - - Respiratory Rate 20 08/22/2021 10:5 5 AM MACHINE FARMWORKER Oxygen Saturation 92% 05/16/2021 3:04 PM CDT Inhaled Oxygen Concentration - - Weight 113.1 kg (249 lb 6.4 oz) 021 10:55 AM MACHINE FARMWORKER Height 170.2 cm (5' 7 ) 08/22/2021 10:5 5 AM MACHINE FARMWORKER Body Mass Index 39.06 08/22/2021 10:55 AM MACHINE FARMWORKER Plan of Treatment Health Maintenance Due Date Last Done Comments Colorectal Cancer Screening Colonoscopy (10 Years) 1957 Hepatitis C 11/02/1975 DTaP, Tdap and Td Vaccines ( 1 - Tdap) 1976 Pneumococcal Vaccine: 50+ Ye ars (1 of 2 - PCV) 1976 Mammogram Screening 1997 Zoster Vaccines (1 of 2) 11/02/2007 RSV Immunization or 60+ Years (1 - Risk 60-74 years 1-dose series) 2017 Annual Medicare Wellness Visit 2022 Dexa Scan (General) 2022 COVID-19 Vaccine (1 - 2023-2 5 season) 2024 Meningococcal B Vaccine Aged Out No l onger eligible based on patient's age to complete this topic Meningococcal Vaccine Aged Out No thomas fredy eligible based on patient's age to complete this topic RSV Immunizations Under 20 Months Aged Out No longer eligible based on patient's age to complete this topic Insurance MEDICARE [facility] Care Teams Marketing Copywriter Relationship Specialty Start Date End Date Navin Sainz MD [address] [address] PCP - General FAMILY PRACTICE 02/20/21
--- OUTSIDE RECORDS SUMMARY | 2024-12-25 15:10 | XMS_ITS | Referral Summary ---
Author Organization [facility] [address] Address [address] [place] [address] Care Team Providers Care Medicaid Analyst Name Role Phone Navin Sainz MD Primary [...] (three) times a day 10/12/2020 Active vit C,M-Vg-vkmnf-lut ein-zeaxan 250-90-40-1 mg capsule Take by mouth Active nhlexquf-llx-ME- lycopen-lutein 0.4-300-250 mg-mcg-mcg tabletIndication s:Vitamin Deficiency Prevention [...] 0 03/25/2022 Body mass index 40.0-44.9, adult ([facility]) 03/25 Stage 2 chronic kidney disease 09/24/2021 [...] 08/25/2018 03/15/2021 Abnormal stress test 08/25/2018 021 Social History Tobacco Use Types Packs/Day Years [...] on file Legal Sex Female 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
--- OUTSIDE RECORDS SUMMARY | 2024-12-25 15:10 | XMS_ITS | Clinical Summary ---
Author Organization [facility] Address [address] [place] [address] Phone Care Team Providers Care Film Vault Supervisor Name Role Phone Navin Brennan MD Primary Care Provider Allergies Active Allergy Reactions Criticality Noted Date Comments Iodine nausea Low 12/06/2020 Medications warfarin (COUMADIN) 2.5 MG tablet 08/28/2021 Active gabapentin (NEURONTIN) 800 MG tablet Take 800 mg by mouth 3 times daily 10/12/2020 Active HYDROcodone-magalys taminophen (NORCO) 7.5-325 MG per tablet 10/09/2021 Activ e ALPRAZolam (XANAX) 0.5 MG tablet 09/05/2021 Active FLUoxetine (PROzac) 20 MG capsule 09/03/2021 Active mirtazapine (REMERON) 45 MG tablet 09/03/2021 Active rosuvastatin (CRESTOR) 5 MG tablet 08/30/2021 Active metoprolol tartrate (LOPRESSOR) 25 MG tablet Take 25 mg by mouth 2 times daily 01/15/2021 Active montelukast (SINGULAIR) 10 MG tablet 08/29/2021 Active albuterol HFA (PROVENTIL HFA) 108 (90 Base) MCG/ACT inhaler Inhale 2 puffs 03/07/2021 Active fluticasone-kendra meterol (ADVAIR DISKUS) 250-50 MCG/DOSE diskus inhaler Inhale 1 puff 2 times daily 08/29/2021 Active Multiple Vitamins-Minera ls (PreserVision AREDS 2) capsule Take by mouth Active calcium carbonate (OS-GAMALIEL) 600 MG tablet Take by mouth Active MULTIPLE VITAMINS-MINERA LS PO Take by mouth daily Active QUEtiapine (SEROquel) 200 MG tablet 3 tabs at bedtime 12/03/2021 Active Active Problems Problem Noted Date Diagnosed Date Nonspecific abnormal results of function study o f kidney 10/11/2021 Obstructive sleep apnea syndrome 05/21/2021 Hypercholesterolemia 03/15/2021 Uncomplicated moderate persistent asthma 021 Chronic pulmonary embolism 01/15/2021 H/O: pulmonary embolus 08/25/2018 Immunizations Immunization Administration Dates Next Due Influenza TIV (IM) 06/24/2021 Social History Tobacco Use Types Packs/Day Years Used Date Smoking Tobacco: Never Smokeless Tobacco: Never Alcohol Use Standard Drinks/Week Comments Not Currently 0 (1 standard drink = 0.6 oz pur e alcohol) Comments Unknown Sex and Gender Information Value Date Recorded Sex Assigned at Not on file Legal Sex Female 9:39 AM MST Gender Identity Not on file Sexual Orientation Not on file Last Filed Vital Signs Vital Sign Reading Time Taken Comments Blood Pressure 126/72 02/14/2022 11:05 AM CDT Pulse 72 02/14/2022 11:05 AM CDT Temperature 35.2 C (95.4 F) 02/14/2022 11:05 AM CDT Respiratory Rate - - Oxygen Saturation - - Inhaled Oxygen Concentration - - Weight 116 kg (256 lb) 02/14/2022 11:05 AM CDT Height 170.2 cm (5' 7 ) 02/14/2022 11:05 AM CDT Body Mass Index 40.1 02/14/2022 11:05 AM CDT Plan of Treatment Health Maintenance Due Date Last Done Comments Pneumococcal PPSV23/PCV13 65 + Years / Low and Medium Risk (1 of 4 - PCV) 11/02/2007 Influenza Vaccine (Season Ended) 2025 06/24/20 21 Insurance [facility] Care Teams Film Vault Supervisor Relationship Specialty Start Date End Date Navin Brennan MD [address] [address] PCP - General Family Medicine 10/10/21
--- OUTSIDE RECORDS SUMMARY | 2024-12-25 15:10 | XMS_ITS | Clinical Summary ---
Author Organization [facility] Address [address] [address] Care Team Providers Care Safety Advisor Name Role Phone Navin Sainz MD Primary Care Provider + Source Comments [facility],non-owned Affiliates and Associated Physician Practices is amultiple site organization consisting of ambulatory clinics and hospital sitesin [place], [place], [place] and [place]. This disclosure is being madepursuant to the Care Everywhere program and may not contain all information available regarding this patient. Last updated 18.[facility] Family History Medical History Relation Name Comments None Known Father Status: d CVA Maternal Grandfather Blindness Maternal Grandmother Pt does n't know why Diabetes Maternal Grandmother Heart Disease Maternal Grandmother Hypertension Maternal Grandmother Diabetes Mother Relation Name Status Comments Father Maternal Grandfather Maternal Grandmother Mother Social History Tobacco Use Types Packs/Day Years Used Date Smoking Tobacco: Never Alcohol Use Standard Drinks/Week Comments No 0 (1 standard drink = 0.6 oz pur e alcohol) Comments Unknown Sex and Gender Information Value Date Recorded Sex Assigned at Not on file Legal Sex Female 6:47 PM WOOD FINISHER 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 Gender Identity Not on file Sexual Orientation Not on file Last Filed Vital Signs Vital Sign Reading Time Taken Comments Blood Pressure 136/86 01/22/2013 9:56 AM CDT Pulse 91 01/22/2013 9:56 AM CDT Temperature 36.6 C (97.8 F) 01/22/2013 9:56 AM CDT Respiratory Rate 14 01/22/2013 9:56 AM CDT Oxygen Saturation 94% 01/22/2013 9:56 AM CDT Inhaled Oxygen Concentration - - Weight 93.9 kg (207 lb) 01/22/2013 9:56 AM CDT Height 170.2 cm (5' 7 ) 01/22/2013 9:56 AM CDT Body Mass Index 32.42 01/22/2013 9:56 AM CDT Plan of Treatment Health Maintenance Due Date Last Done Comments BONE DENSITY TESTING 1957 COLOGUARD (AGES 45-75) - COL ON CA SCREENING 1957 COLON MONITORING 1957 COLONOSCOPY - COLON CA SCREENING 1957 CT COLONOGRAPHY - COLON CA SCREENING 1957 Colorectal Cancer Screening 1957 FIT - COLON CA SCREENING 1957 FLEX SIG - COLON CA SCREENING 1957 LIPID TESTING 1957 MAMMOGRAM 1957 HEPATITIS C SCREENING 10/28/1975 DTAP/TDAP/TD VACCINES (1 - Tdap) 1976 PNEUMOCOCCAL VACCINE 50+ (1 of 1 - PCV) 11/02/2007 ZOSTER VACCINE (1 of 2) 11/02/2007 COVID-19 VACCINE (1 - 2023-2 5 season) 2024 DEPRESSION SCREENING 08/25/2024 INFLUENZA VACCINE (Season Ended) 2025 Respiratory Syncytial Virus (RSV) Vaccine Pt: or over 60 yrs (1 - 1-dose 75+ series) 2032 HEPATITIS B VACCINE Aged Out No longe r eligible based on patient's age to complete this topic HIB VACCINE Aged Out No longer eligi ble based on patient's age to complete this topic HPV VACCINE Aged Out No longer eligi ble based on patient's age to complete this topic MENINGOCOCCAL (Group B) VACC INE SHARED DECISION-MAKING Aged Out No longer eligibl e based on patient's age to complete this topic MENINGOCOCCAL GROUPS A/C/Y/W VACCINE Aged Out No longer eligible b ased on patient's age to complete this topic Insurance [employer] SELF PAY NO INSURANCE Member Subscriber Plan / Payer (Ef fective for All Dates) Name:AdrianAbi V Member ID:Not on file Relation to Subscriber:Not on file Name:ABI CAMPBELL V Subscriber ID:Not on file (Home) Address: [address] [place] [id number] Payer ID:Not on file Group ID:Not on file Type:Self Pay Address: [place], [place] Care Teams Safety Advisor Relationship Specialty Start Date End Date Navin Sainz MD [address] [address] PCP - General 07/17/11
--- OUTSIDE RECORDS SUMMARY | 2024-12-25 15:16 | XMS_ITS | CONTINUITY OF CARE DOCUMENT ---
Author Name camron lyon Address Unknown Organization [facility] Address [address] [place] [address] Phone [phone] Care Team Providers Care Dental Amalgam Processor Name Role Phone Adair Philip MD Unavailable [phone] Adair Philip MD Unavailable [phone] INSURANCE PROVIDERS Payer name Policy type / Coverage type [place] red green party ID HUMANA PPO O [id number]
--- NOTE | 2024-12-27 14:23 | PC.NURSE ---
FINAL URINE CULTURE REPORT; NO GROWTH.
== END 2024-12-25 01:36 | disposition short-term general hospital (02) ==
PROVIDERS: Emergency Provider Emergency Medicine; PCP Family Medicine Adolescent Medicine
DX: G83.9 Paralytic syndrome, unspecified (principal); N17.9 Acute kidney failure, unspecified; E86.0 Dehydration; T79.6XXA Traumatic ischemia of muscle, initial encounter; M25.562 Pain in left knee; M25.561 Pain in right knee; E78.5 Hyperlipidemia, unspecified; I10 Essential (primary) hypertension; Z79.01 Long term (current) use of anticoagulants; Z86.718 Personal history of other venous thrombosis and embolism; W01.0XXA Fall on same level from slipping, tripping and stumbling without subsequent striking against object, initial encounter; Y92.009 Unspecified place in unspecified non-institutional (private) residence as the place of occurrence of the external cause; Z79.899 Other long term (current) drug therapy
CPT/HCPCS: 36415; 70450; 72125; 72131; 73562; 74176; 80053; 81001; 82550; 85025; 85610; 85730; 87086; 96361; 96374; 96375; 96376; 99285; J1885; J2270; J7030

== ENCOUNTER 2025-01-10 10:30 | Outpatient (CLI) | payer MEDICARE, SELFPAY ==
--- NOTE | ~2025-01-10 | XR_ITS ---
CHEST RADIOGRAPH, PA AND LATERAL CLINICAL HISTORY: CHRONIC RESPIRATORY FAILURE WITH HYPOXIA . COMPARISON: 11/17/2020 TECHNIQUE: PA and lateral views of the chest. FINDINGS The cardiomediastinal silhouette is unremarkable. Coarse interstitial lung markings with a bibasilar distribution. The remainder of the lungs are clear. IMPRESSION: No focal infiltrate or effusion. Reviewed, dictated and finalized at location A.
--- OUTSIDE RECORDS SUMMARY | 2025-01-10 11:04 | XMS_ITS | Clinical Summary ---
Author Organization [facility] Address [address] [facility] [place] [address] Care Team Providers Care Cytotechnologist Supervisor Name Role Phone Navin Sainz MD Primary Care Provider + Source Comments [facility],non-owned Affiliates and Associated Physician Practices is amultiple site organization consisting of ambulatory clinics and hospital sitesin [place], [place]. This disclosure is being madepursuant to the Care Everywhere program and may not contain all information available regarding this patient. 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
--- OUTSIDE RECORDS SUMMARY | 2025-01-10 11:04 | XMS_ITS | Clinical Summary ---
Author Organization [facility] Address [address] [place] [address] Care Team Providers Care Director Of Finance Name Role Phone Navin Sainz MD Primary Care Provider [phone] Allergies Active Allergy Reactions Criticality Noted Date [...] Comments Blood Pressure 156/100 08/22/2021 10:55 AM MAINSTREAMING FACILITATOR Pulse 72 08/22/2021 10:55 AM MAINSTREAMING FACILITATOR Temperature - - Respiratory Rate 20 08/22/2021 10:5 5 AM MAINSTREAMING FACILITATOR Oxygen Saturation 92% 05/16/2021 3:04 PM CDT Inhaled Oxygen Concentration - - Weight 113.1 kg (249 lb 6.4 oz) 021 10:55 AM MAINSTREAMING FACILITATOR Height 170.2 cm (5' 7 ) 08/22/2021 10:5 5 AM MAINSTREAMING FACILITATOR Body Mass Index 39.06 08/22/2021 10:55 AM MAINSTREAMING FACILITATOR Plan of Treatment Health Maintenance Due Date [...] to complete this topic Insurance MEDICARE [employer] [place] Care Teams Director Of Finance Relationship Specialty Start Date End Date Navin Sainz MD [address] [address] PCP - General FAMILY PRACTICE 02/20/21
--- OUTSIDE RECORDS SUMMARY | 2025-01-10 11:04 | XMS_ITS | Referral Summary ---
Author Organization [facility] [address] [facility] [address] Address [address] [place] [address] Care Team Providers Care Oracle Applications Analyst Name Role Phone Navin Sainz MD Primary Care Prov ider Encounters Date Type Department Care Team Description 01/10/2025 10:00 AM CDT Office Visit [facility] Cardiology [address] [place] [address] Krzysztof Agrawal MD PVC's (premature ventricular contractions) (Primary Dx); LVH (left ventricular hypertrophy); Hypercholesteremia; Other chest pain; MASTERS (dyspnea on exertion); Hx of pulmonary embolus; Stage 2 chronic kidney disease; Bilateral lower extremity edema from Last 3 Months Allergies Active Allergy Reactions Criticality Noted Date Comments Iodinated Contrast Media Nausea only Low 12/06/2020 Medications QUEtiapine (SEROquel) 300 mg tablet Take 2 tablets (600 mg total) by mouth nightly Active ALPRAZolam (XANAX) 0.5 mg tablet 4 (four) times a day Active FLUoxetine (PROzac) 20 mg capsule Take by mouth daily 1 Active mirtazapine (REMERON) 45 mg tablet Take 1 tablet (45 mg total) by mouth nightly 1 Active HYDROcodone-magalys taminophen (NORCO) 7.5-325 mg per tablet TAKE 1 TO 2 TABLETS BY MOUTH FOUR TIMES DAILY NEEDED FOR PAIN 1 Active warfarin (COUMADIN) 3 mg tablet Take 2.5 mg by mouth daily 1 Active gabapentin (NEURONTIN) 800 mg tablet Take 1 tablet (800 mg total) by mouth 3 (three) times a day 1 Active vit C,Y-Hs-rihxf-michelle tein-zeaxan 250-90-40-1 mg capsule Take by mouth Active xrybzqyx-xrk-XG -lycopen-lutein 0.4-300-250 mg-mcg-mcg tabletIndicatio ns:Vitamin Deficiency Prevention 1 tablet Active albuterol HFA (PROVENTIL HFA,VENTOLIN HFA,PROAIR HFA) 90 mcg/actuation inhaler Inhale 2 puffs every 6 (six) hours as needed 1 Active nitroglycerin (NITROSTAT) 0.4 mg SL tabletIndicatio ns:Other chest pain Place 1 tablet (0.4 mg total) under the tongue every 5 (five) minutes as needed for chest pain May repeat dose q 5 min, up to 3 doses total 90 tablet 1 2 Active furosemide (LASIX) 40 mg tablet Take 1 tablet (40 mg total) by mouth 2 (two) times a day 3 Active Trelegy Ellipta 200-62.5-25 mcg inhaler INHALE 1 PUFF BY MOUTH DAILY FOR ASTHMA 3 Active montelukast (SINGULAIR) 10 mg tablet Take 1 tablet (10 mg total) by mouth nightly Active cholecalciferol 25 mcg (1,000 unit) tablet Take 1 tablet (1,000 Units total) by mouth daily Active rosuvastatin (CRESTOR) 5 mg tabletIndicatio ns:Hypercholest eremia TAKE 1 TABLET EVERY DAY 90 tablet 3 4 Active metoprolol tartrate (LOPRESSOR) 25 mg immediate release tabletIndicatio ns:Sinus tachycardia,PVC 's (premature ventricular contractions) TAKE 1 TABLET TWICE DAILY 180 tablet 3 4 Active aspirin 81 mg enteric coated tabletIndicatio ns:Other chest pain Take 1 tablet (81 mg total) by mouth daily 30 tablet 11 1 025 Discontinued Active Problems Problem Noted Date Diagnosed Date Bilateral lower extremity edema 01/10/2025 Morbid (severe) obesity due to excess calories 0 03/25/2022 Body mass index 40.0-44.9, adult ([facility]) 03/25 Stage 2 chronic kidney [...] on file 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 Gender Identity Not on file Sexual Orientation Not on file Last Filed Vital Signs Vital Sign Reading Time Taken Comments Blood Pressure 118/64 01/10/2025 9:51 AM CDT Pulse 82 01/10/2025 9:51 AM CDT Temperature - - Respiratory Rate - - Oxygen Saturation 95% 01/10/2025 9:51 AM CDT on 2 L 02 Inhaled Oxygen Concentration - - Weight 115.2 kg (254 lb) 01/10/2025 9:51 AM CDT Height 170.2 cm (5' 7 ) 01/10/2025 9:51 AM CDT Body Mass Index 39.78 01/10/2025 9:51 AM CDT Plan of Treatment Not on file Procedures Procedure Name Priority Date/Time Associated Diagnosis Comments POCT LIPID PANEL Routine 01/10/2025 9:46 AM CDT Hypercholesteremia from Last 3 Months Results * (ABNORMAL) POCT lipid panel (01/10/2025 9:46 AM CDT) Cholesterol, POC 184 <200 MG/DL HDL, POC 49 >=40 mg/dL Triglycerides, POC 229(A) <=149 mg/dL LDL Cholesterol POC 89 <=129 mg/dL Chol/HDL Ratio, POC 1.8 NONE Non-HDL Cholesterol, POC 135 NONE mg/dL Cholesterol Total, POC 184 30 - 199 mg/dL Capillary blood 01/10/2025 9 :46 AM CDT Krzysztof Agrawal MD POINT OF CARE TEST O RDERABLES Final Result from Last 3 Months Insurance [employer] MEDICARE PPO [employer] MEDICARE PPO [employer] CHOICE MEDICARE PPO Care Teams Oracle Applications Analyst Relationship Specialty Start Date End Date Navin Sainz MD [address] [place] [address] PCP - General 07/31/17
--- OUTSIDE RECORDS SUMMARY | 2025-01-10 11:04 | XMS_ITS | Clinical Summary ---
Author Organization [facility] [address] Address [address] [place] [address] Care Team Providers Care Bridge Operator Name Role Phone Navin Sainz MD Primary [...] (three) times a day 1 Active vit C,J-Dc-ijkxs-michelle tein-zeaxan 250-90-40-1 mg capsule Take by mouth Active rquaulab-wqf-[place] -lycopen-lutein 0.4-300-250 mg-mcg-mcg tabletIndicatio ns:Vitamin Deficiency Prevention [...] 0 03/25/2022 Body mass index 40.0-44.9, adult ([facility]) 03/25 Stage 2 chronic kidney [...] 08/25/2018 03/15/2021 Abnormal stress test 08/25/2018 021 Encounters Date Type Department Care Team Description 01/10/2025 10:00 AM CDT Office Visit [facility] Cardiology [address] [place] [address] Krzysztof Agrawal MD PVC's (premature ventricular contractions) (Primary Dx); LVH (left ventricular hypertrophy); Hypercholesteremia; Other chest pain; MASTERS (dyspnea on exertion); Hx of pulmonary embolus; Stage 2 chronic kidney disease; Bilateral lower extremity edema from Last 3 Months Surgical History Surgery Date Site/Laterality Comments [place] APPENDECTOMY Appendectomy - (Added by Conv) [place] LIG/TRNSXJ FLP TUBE ABDL/ VAG APPR UNI/BI Tubal Ligation - (Added by TW Conv) [place] NEUROPLASTY &/TRANSPOS ME DAVID NRV CARPAL TUNNE Neuroplasty Decompression Median Nerve At Carpal Tunnel - (Added by TW Conv) BACK SURGERY Back Surgery - (Added by Conv) Medical History Medical History Date Comments Gallstones Cataracts, bilateral Anxiety and depression Hx of pulmonary embolus 2018 DVT (deep venous thrombosis) ([facility]) 1989 Social History Tobacco Use Types Packs/Day [...] on file 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 Gender Identity Not on file Sexual Orientation [...] 01/10/2025 9:51 AM CDT Plan of Treatment Health Maintenance [...] 11/02/2007 Well Visit 65+ 2022 Influenza Vaccine (Season Ended) 2025 06/24/20 21 Procedures Procedure Name Priority Date/Time Associated Diagnosis [...] Capillary blood 01/10/2025 9 :46 AM CDT us Krzysztof Agrawal MD POINT OF CARE TEST O RDERABLES Final Result from Last 3 Months Insurance [employer] CHOICE MEDICARE PPO [employer] CHOICE MEDICARE PPO [employer] CHOICE MEDICARE PPO Care Teams Bridge Operator Relationship Specialty Start Date End Date Navin Sainz MD [address] [place] [address] PCP - General 07/31/17
--- OUTSIDE RECORDS SUMMARY | 2025-01-10 11:04 | XMS_ITS | Clinical Summary ---
Author Organization [facility] Address [address] [place] [address] Phone Care Team Providers Care Resin Painter Name Role Phone Navin Brennan MD Primary Care Provider [phone] Allergies Active Allergy Reactions Criticality Noted Date [...] Vaccine (Season Ended) 2025 06/24/20 21 Insurance [facility] MEDICARE ADVANTAGE Care Teams Resin Painter Relationship Specialty Start Date End Date Navin Brennan MD [address] [address] PCP - General Family Medicine 10/10/21
--- OUTSIDE RECORDS SUMMARY | 2025-01-10 11:04 | XMS_ITS | Data Portability ---
Author Organization [place] [facility] [employer], Main Office Address [address] [place] [address] Care Team Providers Care Chain Maker Hand Name Role Phone YUDELKA SAMAYOA Primary Care Provider YUDELKA SAMAYOA Referring Provider [phone] Assessment Encounter Date Assessment Date Assessment LastModified [...] for R shoulder. surgery date 06/19/20232022 023 [facility], [address] [facility], [place], [address], 3 14:00:59 Procedures None recorded. Surgeries None recorded. Imaging XR, shoulder 2023 024 [email or web address] [facility] [place], [address] [facility] [address], [place], [address], 4 08:29:45 XR, shoulder 2022 023 [facility] [place], [address], [place], [address], 3 23:56:12 CT, shoulder, w/o contrast - JOSUE COLLAZO REVERSE TOTAL SHOULDER PROTOCOL 2022 023 [facility] ([facility]), [address] [place], [address], 3 14:44:57 Medication Orders cyclobenza zack 10 mg tablet 2022 023 [id number], [address] [place], [id number], 4 15:10:01 Patient TargetsNo targets recorded. Patient [...] [facility] [address] [facility] [place] [address] Patien t Name: SHERITA ARENAS Access ion #: [id number] Sex: F : 1955 Dictat ed [...] seen. The anteri or labrum and the top ironer ior labrum are grossl y normal . [...] at 2022 12:31: 57 PM Page 1 [email or web address] (Imaging) [address] [place], [address], 05/05/2023 13:51:55 05/29/20 23 05/29/2023 CT, shoul deangelo, w/o contr ast No observ ation record ed. [email or web address] [facility] [address] [place], [address], 06/02/2023 17:13:56 06/23/20 23 06/23/2023 XR, shoul deangelo No observ ation record ed. [email or web address] [facility] [address] [place], [address], 06/24/2023 10:30:27 07/23/20 23 XR, shoul deangelo No observ ation record ed. [facility] [place] [address], [place], [address], 07/23/2023 23:56:03 06/02/20 24 XR, shoul deangelo No observ ation record ed. [email or web address] [facility] [place] [address], [place], [address], 06/02/2024 11:01:17 Result Notes None recorded. Problems Name Problem SNOMED Code Status Onset Date Resolution Date Notes Provider Name and Address Organization Details Recorded Time Disorder of shoulder 733795924 Active Not Available [facility] 3 14:11:26 History of total knee arthroplas ty 2011906194479 Active 2018 Not Available Replaced by [facility] 3 14:11:26 Disorder of sacrum 21034037 Active Not Available Replaced by [facility] 3 14:11:27 Radiothera py follow-up 485585100 Active Not Available Replaced by [facility] 3 14:11:27 Partial thickness rotator cuff tear 816400337 Active Not Available Replaced by [facility] 3 14:11:27 Osteoarthr itis of knee 694838798 Active 2018 Not Available Replaced by [facility] 3 14:11:27 Enthesopat hy of hip region 72725964 Active Not Available Replaced by [facility] 3 14:11:27 Osteoarthr itis 062278052 Active Not Available Replaced by [facility] 3 14:11:27 Adhesive capsulitis of shoulder 559820381 Active Not Available Replaced by [facility] 3 14:11:27 Pain of right shoulder joint 8540933237907 9100 Active 2022 NICK Young, [place] [facility] 3 15:02:51 Tendinitis of right rotator cuff 7285165466465 9104 Active 2022 Cassie Mims MD [address], [place], [address] , [place] [facility] 3 15:45:13 Partial thickness rotator cuff tear 920788015 Active 2022 Kayli woods, [place] [facility] 3 16:00:57 Rupture of rotator cuff of right shoulder 8012064455356 9103 Active 2022 Vimal Rivera MD [address], [place], [address] , [facility] [place] [employer] [facility] 12:26:33 Problem Notes None recorded. Procedures Surgical History Date Name Laterality Status Provider Name and Address Organization Details Recorded Time 06/19/20 arthroplasty of right shoulder completed NICK Miller [facility] [employer] [facility] 05/20/2024 15:07:28 04/15/20 Ortho - Cortisone Injection completed Cassie Mims MD [address] [facility] [address], [place], [address], [facility] [place] [employer] [facility] 04/15/2023 15:43:39 Imaging Results Imaging Date Name Status LastModified by Organiz ation Details LastModified Time 05/05/2023 MRI, shoulder, w/o contrast completed [email or web address] [facility] (Imaging) [address] [place], [address], 05/05/2023 13:51:55 05/29/2023 CT, shoulder, w/o contrast completed [email or web address] [facility] [address] [place], [address], 06/02/2023 17:13:56 06/23/2023 XR, shoulder completed [email or web address] [facility] [address] [place], [address], 06/24/2023 10:30:27 07/23/2023 XR, shoulder completed [facility] [place] [address] [facility] [address], [place], [address], 07/23/2023 23:56:03 06/02/2024 XR, shoulder completed [email or web address] [facility] [place] [address] [facility] [address], [place], [address], 06/02/2024 11:01:17 Procedure Notes None recorded. Medical Equipment None Reported. Allergies Allergen ID Allergen Name Allergen Category Reaction Reaction Severity Criticality Documentation Date Start Date Code Code System Note Provider Name and Address Organization Details Recorded Time 39220 Iodinated contrast media (substanc e) medicatio n headache nausea Not available Not available Not available 04/15/2023 34674 2003 SNOMED weakn ess Mery Braxton, JASS null, [place] [facility] [place] [employer] 4 10:57:13 Medications Name Sig Start Date [...] 20 mg by injection route. 05/20 completed [facility]: 0003- 0494- 20 Not Available Not Available [...] 20 mg by injection route. 05/20 completed [facility] [address]10 -064- 01 Not Available Not Available Not [...] Updated DateTime 05/20/2023 170.18 cm 39.2 kg/m2 047774.09 g Alexandra Fitzgerald [employer] 05/20/2023 09:14:40 Date Recorded Body height Body mass index (BMI) Body weight Provider Name and Address Organization Details Last Updated DateTime 07/01/2023 170.18 cm 39.2 kg/m2 186868.09 g [employer] 07/01/2023 10:13:44 Date Recorded Body height Body mass index (BMI) Body weight Provider Name and Address Organization Details Last Updated DateTime 07/22/2023 170.18 cm 39.2 kg/m2 616726.09 g Alexandra Fitzgerald [employer] 07/22/2023 11:07:31 Date Recorded Body height Body mass index (BMI) Body weight Provider Name and Address Organization Details Last Updated DateTime 09/17/2023 170.18 cm 38.4 kg/m2 509258.13 g [email or web address] 09/17/2023 11:34:03 Date Recorded Body height Body mass index (BMI) Body weight Provider Name and Address Organization Details Last Updated DateTime 06/02/2024 170.18 cm 38.4 kg/m2 546919.13 g [employer] 06/02/2024 10:56:00 Social History None recorded. Functional Status Question Answer Note LastModified by Organization D etails LastModified Time What is your level of alcohol consumption? None [email or web address] Information not available 06/02/2024 Mental Status None recorded. Family History Relationship Description Onset Age of this Age Resolved Age Notes LastModified by Organization Details LastModified Time Maternal Grandmother Heart disease [email or web address] Not available 2022 15:15:13 Maternal Grandmother Diabetes mellitus [email or web address] Not available 2023 10:58:03 Maternal Grandfather Family history of stroke Not available 2022 15:15:28 Maternal Uncle Family history of malignant neoplasm [email or web address] Not available 2022 15:15:47 Medical History Condition Response ARTHRITIS Y ANXIETY DISORDER Y USE OF BLOOD THINNERS Y VASCULAR DISEASE Y ANEMIA/BLOOD DISORDER Y BLOOD CLOTS Y URINARY/BLADDER/KIDNEY PROBLEMS Y USE OF NSAIDS Y HEART ARRHYTHMIA Y HYPERTENSION Y Gynecological HistoryNo gynecological history recorded. Obstetrics History GPAL:G 0 P 0 0 0 0 Past Encounters Encounter ID Performer Location Encounter Start Date Encounter Closed Date Diagnosis/Indication Diagnosis SNOMED-CT Code Diagnosis ICD10 Code Diagnosis Note [id number] Cassie Mims MD [facility] [place] [address] [place] [address] 04/15/2023 14:52:48 04/15/2023 15:49:52 Pain of right shoulder joint 5637639386 0025050 M25.511 Tendinitis of right rotator cuff 1582677509 7694233 M67.063 [id number] Cassie Mims MD [facility] [place] [address] [place] [address] 05/01/2023 12:35:21 05/01/2023 13:33:01 Pain of right shoulder joint 9402172501 9723164 M25.511 Tendinitis of right rotator cuff 0524948294 5400711 M67.523 [id number] Cassie Mims MD [facility] [place] [address] [place] [address] 05/08/2023 10:17:09 05/08/2023 10:48:35 Pain of right shoulder joint 0207472700 9043003 M25.689 [id number] Vimla Rivera MD [facility] [place] [address] [place] [address] 05/20/2023 09:12:16 05/20/2023 09:43:09 Disorder of shoulder 280601403 M25.819 Rupture of rotator cuff of right shoulder 3600694146 3939247 M75.739 [id number] Vimal Rivera MD [facility] [place] [address] [place] [address] 07/01/2023 10:08:32 07/01/2023 11:26:27 Pain of right shoulder joint 7761606309 2929128 M25.511 Postoperative visit 1836 88725 Z09 [id number] Vimal Rivera MD [facility] [place] [address] [place] [address] 07/22/2023 11:01:43 07/22/2023 11:45:53 Pain of right shoulder joint 0949448688 9376787 M25.677 [id number] Vimal Rivera MD [facility] [place] [address] [place] [address] 09/17/2023 11:33:22 09/17/2023 11:59:44 Pain of right shoulder joint 7752286230 7276084 M25.365 [id number] Vimal Rivera MD [facility] [place] [address] [place] [address] 06/02/2024 10:30:56 06/02/2024 11:41:26 Rupture of rotator cuff of right shoulder 6536424575 4049853 M75.101 Pain of ri ght shoulder joint 6321700670 2171419 M25.511 Health Concerns Section Related Observation LastModified by Organization Detai ls LastModified Time None Recorded Concern Status LastModified by Organization Details LastModified Time None Recorded Advance Directives Directive None Recorded Payers Encounter Date Sequence Insurance Name Policy Number Policy Matute Covered Member ID Matute Member ID Guarantor Name 05/20/2023 1 [employer] CLAIMS OFFICE Abi V Adrian [id number] Abi V Adrian 05/20/2023 [employer] (MEDICARE REPLACEMENT/ ADVANTAGE - PPO) Abi V Adrian [id number] Abi V Adrian 07/01/2023 1 [employer] (MEDICARE REPLACEMENT/ ADVANTAGE - PPO) Abi V Adrian [id number] Abi V Adrian 07/01/2023 2 [place] Abi V Adrian [id number] Abi V Adrian 07/22/2023 1 [employer] (MEDICARE REPLACEMENT/ ADVANTAGE - PPO) Abi V Adrian [id number] Abi V Adrian 09/17/2023 1 [employer] (MEDICARE REPLACEMENT/ ADVANTAGE - PPO) Abi V Adrian [id number] Abi V Adrian 06/02/2024 1 [employer] (MEDICARE REPLACEMENT/ ADVANTAGE - PPO) Abi V Adrian [id number] Abi V Adrian OBGyn Episode No OBEpisode recorded.
--- OUTSIDE RECORDS SUMMARY | 2025-01-10 11:04 | XMS_ITS | Encounter Summary ---
Author Organization [facility] Address [address] [place] [address] Care Team Providers Care Hvac/R Instructor Name Role Phone Navin Sainz MD Primary Care Prov ider Reason for Visit * Reason Comments Follow-up Annual follow up Encounter Details Date Type Department Care Team (Late st Contact Info) Description 01/10/2025 10:00 AM CDT Office Visit [facility] Cardiology [address] [place] [address] Krzysztof Agrawal MD [address] [place] [id number] PVC's (premature ventricular contractions) (Primary Dx); LVH (left ventricular hypertrophy); Hypercholesteremia; Other chest pain; MASTERS (dyspnea on exertion); Hx of pulmonary embolus; Stage 2 chronic kidney disease; Bilateral lower extremity edema Social History Tobacco Use Types Packs/Day Years Used Date Smoking Tobacco: Never Smokeless Tobacco: Never AUDIT-C Answer Date Recorded Q1: How often do you have a drink containing alc ohol? 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 Gender Identity Not on file Sexual Orientation Not on file documented as of this encounter Last Filed Vital Signs Vital Sign Reading [...] Mass Index 39.78 01/10/2025 9:51 AM CDT documented in this encounter Plan of Treatment Not on file documented as of this encounter Procedures Procedure Name Priority Date/Time Associated Diagnosis Comments POCT LIPID PANEL Routine 01/10/2025 9:46 AM CDT Hypercholesteremia documented in this encounter Results * (ABNORMAL) POCT lipid panel (01/10/2025 [...] OF CARE TEST O RDERABLES Final Result documented in this encounter Visit Diagnoses Diagnosis PVC's (premature ventricular contractions)- Primary Other premature beats LVH (left ventricular hypertrophy) Cardiomegaly Hypercholesteremia Pure hypercholesterolemia Other chest pain MASTERS (dyspnea on exertion) Other dyspnea and respiratory abnormality Hx of pulmonary embolus Stage 2 chronic kidney disease Bilateral lower extremity edema documented in this encounter Discontinued Medications Medication Sig Discontinue Reason Start Date End Da te aspirin 81 mg enteric coated tabletIndications:Other chest pain Take 1 tablet (81 mg total) by mouth daily 12/14/2020 01/10/2025 documented as of this encounter Care Teams Hvac/R Instructor Relationship Specialty Start Date End Date Navin Sainz MD [address] [place] [address] PCP - General 07/31/17 documented as of this encounter
[2025-01-10 11:12] LABS: Basophils Absolute Auto 0.1 K/mm3 (0.0-0.1); Basophils Percent Auto 0.7 % (0.2-1.2); Eosinophils Absolute Auto 0.1 K/mm3 (0-0.3); Eosinophils Percent Auto 0.9 % (0-4.4); Hematocrit 36.2 % (37.0-47.0); Hemoglobin 11.2 g/dL (12.0-15.0); Immature Granulocyte Absolute 0.02 K/mm3 (0.00-0.031); Immature Granulocyte Percent A 0.3 % (0-0.5); Lymphocytes Absolute Auto 2.08 K/mm3 (0.9-3.2); Lymphocytes Percent Auto 31.1 % (18.3-44.2); Mean Corpuscular HGB Conc 30.9 g/dl (32-36); Mean Corpuscular Hemoglobin 29.9 pg (26-34); Mean Corpuscular Volume 96.5 fl (80-100); Mean Platelet Volume 11.6 fl (7.4-10.4); Monocytes Absolute Auto 0.7 K/mm3 (0.1-0.6); Monocytes Percent Auto 10.2 % (2.6-8.5); Neutrophils Absolute Auto 3.8 K/mm3 (1.3-6.7); Neutrophils Percent Auto 56.8 % (45.5-73.1); Platelet Count Result 210 k/mm3 (150-375); Red Blood Count 3.75 M/mm3 (4.2-5.4); Red Cell Distribution Width 14.2 % (11.5-14.5); White Blood Count 6.7 K/mm3 (4.5-10.0)
== END 2025-01-10 10:31 | disposition home or self-care (01) ==
PROVIDERS: PCP Family Medicine Adolescent Medicine; Visit Provider Physician Assistant
DX: J45.909 Unspecified asthma, uncomplicated (principal); J96.11 Chronic respiratory failure with hypoxia
CPT/HCPCS: 36415; 71046; 85025

== ENCOUNTER 2025-04-19 14:23 | Outpatient (CLI) | payer MEDICARE, SELFPAY ==
--- OUTSIDE RECORDS SUMMARY | 2025-04-19 14:28 | XMS_ITS | Clinical Summary ---
Author Organization [facility] Address [address] [place] [address] Care Team Providers Care Relations Specialist Name Role Phone Navin Sainz MD Primary Care Provider + Source Comments [facility],non-owned Affiliates and Associated Physician Practices is amultiple site organization consisting of ambulatory clinics and hospital sitesin [place], [place], [place] and [place]. This disclosure is being madepursuant to the Care Everywhere program and may not contain all information available regarding this patient. 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
--- OUTSIDE RECORDS SUMMARY | 2025-04-19 14:28 | XMS_ITS | Clinical Summary ---
Author Organization [facility] Address [address] [place] [address] Phone Care Team Providers Care Cdl Instructor Name Role Phone Navin Brennan MD Primary Care Provider [phone] Allergies Active Allergy Reactions Criticality Noted Date [...] 11:05 AM CDT Height 170.2 cm (5' 7) 02/14/2022 11:05 AM CDT Body Mass Index 40.1 02/14/2022 11:05 AM CDT Plan of Treatment Health Maintenance Due Date Last Done Comments Pneumococcal PPSV23/PCV13 65 + Years / Low and Medium Risk (1 of 2 - PCV) 11/02/2007 Influenza Vaccine (#1) 2025 06/24/2021 Insurance [facility] MEDICARE ADVANTAGE Care Teams Cdl Instructor Relationship Specialty Start Date End Date Navin Brennan MD [address] [address] PCP - General Family Medicine 10/10/21
--- OUTSIDE RECORDS SUMMARY | 2025-04-19 14:28 | XMS_ITS | Clinical Summary ---
Author Organization [facility] [address] Address [address] [place] [address] Care Team Providers Care Enrollment Management Coordinator Name Role Phone Navin Sainz MD Primary [...] (three) times a day 10/12/2020 Active vit C,X-Jm-nweug-lut ein-zeaxan 250-90-40-1 mg capsule Take by mouth Active megmqnpy-ksp-SX- lycopen-lutein 0.4-300-250 mg-mcg-mcg tabletIndication s:Vitamin Deficiency Prevention 1 tablet Active albuterol HFA [...] 0 03/25/2022 Body mass index 40.0-44.9, adult ([facility]) 03/25 Stage 2 chronic kidney disease 09/24/2021 [...] 021 Surgical History Surgery Date Site/Laterality Comments [place] APPENDECTOMY Appendectomy - (Added by TW Conv) [place] LIG/TRNSXJ FLP TUBE ABDL/ VAG APPR UNI/BI Tubal Ligation - (Added by TW Conv) NE NEUROPLASTY &/TRANSPOS ME DAVID NRV CARPAL TUNNE Neuroplasty Decompression Median Nerve At Carpal Tunnel - (Added by TW Conv) BACK SURGERY Back Surgery - (Added by TW Conv) Medical History Medical History Date Comments Gallstones Cataracts, bilateral Anxiety and depression Hx of pulmonary embolus 2018 DVT (deep venous thrombosis) 1989 Social History Tobacco Use Types Packs/Day [...] on file 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
[2025-04-19 15:07] LABS: Hematocrit 39.5 % (37.0-47.0); Hemoglobin 12.6 g/dL (12.0-15.0); Mean Corpuscular HGB Conc 31.9 g/dl (32-36); Mean Corpuscular Hemoglobin 29.6 pg (26-34); Mean Corpuscular Volume 92.7 fl (80-100); Platelet Count Result 196 k/mm3 (150-375); Red Blood Count 4.26 M/mm3 (4.2-5.4); White Blood Count 6.8 K/mm3 (4.5-10.0)
[2025-04-19 15:18] LABS: Total Protein Urine Random 8 mg/dL; Ur Ttl Prot Creatinine Ratio 0.08 mg/mg (0-0.20)
[2025-04-19 15:27] LABS: Albumin Level 4.2 g/dL (3.5-5.1); Anion Gap 6 mmol/L (4-12); Blood Urea Nitrogen 16 mg/dL (7-17); Calcium 10.0 mg/dL (8.4-10.2); Carbon Dioxide 34 mmol/L (22-30); Chloride 101 mmol/L (98-107); Estimated Glomerular Filt Rate 58; Glucose 96 mg/dL (65-110); Iron 91 ug/dL (37-170); Potassium 4.1 mmol/L (3.4-5.0); Sodium 141 mmol/L (137-145)
[2025-04-19 15:30] LABS: CRP 0.6 mg/dL (<1.0)
[2025-04-19 15:37] LABS: Percent Iron Saturation 27 % (20-50)
[2025-04-19 15:39] LABS: Parathyroid Intact 37.8 pg/mL (14.5-75.2)
[2025-04-19 16:29] LABS: Hemoglobin A1C 7.1 % (<5.7)
[2025-04-19 16:39] LABS: Vitamin B12 713.0 pg/mL (239-931)
== END 2025-04-19 14:24 | disposition home or self-care (01) ==
PROVIDERS: PCP Family Medicine Adolescent Medicine; Visit Provider Internal Medicine Nephrology
DX: R73.01 Impaired fasting glucose (principal); E78.5 Hyperlipidemia, unspecified; M25.50 Pain in unspecified joint; D64.9 Anemia, unspecified; I12.9 Hypertensive chronic kidney disease with stage 1 through stage 4 chronic kidney disease, or unspecified chronic kidney disease; N18.31 Chronic kidney disease, stage 3a
CPT/HCPCS: 36415; 80069; 82570; 82607; 82746; 83036; 83540; 83550; 83970; 84156; 85027; 85652; 86140; 86430

== ENCOUNTER 2025-06-09 13:44 | Outpatient (CLI) | payer MEDICARE, SELFPAY ==
--- NOTE | ~2025-06-09 | XR_ITS ---
MODIFIED ESOPHAGRAM HISTORY: Dysphagia. TECHNIQUE: Modified barium esophagram was performed on 06/09/2025. I administered fluoroscopy and performed the exam with speech pathologist. Patient was seated for lateral fluoroscopic imaging for ingestion of thin liquids, pudding, solids and quantified amounts, followed by thin liquids in uncontrolled amounts. This was recorded on tape. A single fluoroscopic spot image was also recorded. The DAP for this procedure was 2.313 Gycm2. The amount of fluoroscopy time used during this procedure was 2.5 minutes. FINDINGS: Oral stage: Adequate function. Pharyngeal stage: Adequate function. Cervical/esophageal stage: Adequate function. IMPRESSION: Patient tolerated regular consistency oral feedings in the upright position. Please correlate with speech pathologist findings and specific feeding recommendations. Reviewed, dictated and finalized at location A. IMPRESSION: Patient tolerated regular consistency oral feedings in the upright position. Please correlate with speech pathologist findings and specific feedi ng recommendations.
--- NOTE | 2025-06-09 15:33 | REHSTMBS ---
Assessment and note entered by Vivien Zelaya, MANAGER HOSPITALITY Modified Barium Swallow Evaluation Feeding Type Recommended Oral Food Consistency Regular, Level 7 Liquid Consistency Thin (0) ST Clinical Summary The patient is a 69 year old female with a long history or respiratory problems. She reports symptoms of dysphagia for approximately 1 year that seems to have worsened over the past 3 moths. She reports difficulty with liquids and solids alike. She states she has to be mindful when swallow and coordinating respiration for fear of choking. The patient was positioned in a lateral view and presented the following consistencies: 5cc/tsp thin liquid barium, cup trials thin liquid barium, pudding mixed with barium paste, and cracker coated with barium paste. Oral Stage: Oral preparation and transit was viewed to be mildly delayed. The patient was viewed to take extra time to form a cohesive bolus across consistencies and complete a forceful swallow. With cracker consistency she moved the bolus in piecemeal fashion, with small controlled amounts to manage when swallowing. Pharyngeal Stage: When presented all the above consistencies swallow initiation was completed in a timely but forced manner without viewed aspiration or penetration. No residual was viewed to remain in the valleculae or pyriform sinus. Although no aspiration or penetration was viewed the patient does appear to have to take extra time to control her bolus size and coordinate respiration and swallow initiation. Discussed with patient the below recommendations following the MBS to better manage meal intake. Recommended 1. Regular Diet / Level 7 2. Thin Liquid / Level 0 3. Small bites and Drinks 4 . Slow rate of intake 5. Upright when eating 6. No Straw
--- OUTSIDE RECORDS SUMMARY | 2025-06-09 15:46 | XMS_ITS | Clinical Summary ---
Author Organization [facility] [address] Address [address] [place] [address] Care Team Providers Care Life Advisor Name Role Phone Navin Sainz MD [...] (three) times a day 1 Active vit C,H-Hf-yyiht-michelle tein-zeaxan 250-90-40-1 mg capsule Take by mouth Active insgwwdn-ixl-SB -lycopen-lutein 0.4-300-250 mg-mcg-mcg tabletIndicatio ns:Vitamin Deficiency Prevention [...] 1 TABLET EVERY DAY 90 tablet 3 5 Active metoprolol tartrate (LOPRESSOR) 25 mg immediate release tabletIndicatio ns:Sinus tachycardia,PVC 's (premature ventricular contractions) TAKE 1 TABLET TWICE DAILY 180 tablet 3 5 Active rosuvastatin (CRESTOR) 5 mg tabletIndicatio ns:Hypercholest eremia TAKE 1 TABLET EVERY DAY 90 tablet 3 4 025 Discontinued metoprolol tartrate (LOPRESSOR) 25 mg immediate release tabletIndicatio ns:Sinus tachycardia,PVC 's (premature ventricular contractions) TAKE 1 TABLET TWICE DAILY 180 tablet 3 4 025 Discontinued Active Problems Problem Noted Date Diagnosed Date Bilateral lower extremity edema 01/10/2025 Morbid (severe) obesity due to excess calories 0 03/25/2022 Body mass index 40.0-44.9, adult ([facility]) 03/25 Stage 2 chronic kidney disease 09/24/2021 [...] 021 Surgical History Surgery Date Site/Laterality Comments [place] APPENDECTOM[place] Appendectomy - (Added by TW Conv) [place] LIG/TRNSXJ FLP TUBE ABDL/ VAG APPR UNI/BI Tubal Ligation - (Added by TW Conv) [place] NEUROPLASTY &/TRANSPOS ME DAVID NRV CARPAL TUNNE [...] on file 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
--- OUTSIDE RECORDS SUMMARY | 2025-06-09 15:46 | XMS_ITS | Clinical Summary ---
Author Organization [facility] Address [address] [facility] [place] [address] Care Team Providers Care Welder Name Role Phone Navin Sainz MD Primary Care Provider + Source Comments [facility],non-owned Affiliates and Associated Physician Practices is amultiple site organization consisting of ambulatory clinics and hospital sitesin [place], [place], [place] and [place]. This disclosure is being madepursuant to the Care Everywhere program and may not contain all information available regarding this patient. 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
--- OUTSIDE RECORDS SUMMARY | 2025-06-09 15:46 | XMS_ITS | Clinical Summary ---
Author Organization [facility] Address [address] [place] [address] Care Team Providers Care Dredge Operator Supervisor Name Role Phone Navin Sainz MD Primary Care Provider [phone] Allergies Active Allergy Reactions Criticality Noted Date [...] breath 02/24/2021 Moderate persistent asthma without complication 02/24/2021 Resolved Problems Problem Noted Date Diagnosed [...] Comments Blood Pressure 156/100 08/22/2021 10:55 AM HOTEL VALET ATTENDANT Pulse 72 08/22/2021 10:55 AM HOTEL VALET ATTENDANT Temperature - - Respiratory Rate 20 08/22/2021 10:5 5 AM HOTEL VALET ATTENDANT Oxygen Saturation 92% 05/16/2021 3:04 PM CDT Inhaled Oxygen Concentration - - Weight 113.1 kg (249 lb 6.4 oz) 021 10:55 AM HOTEL VALET ATTENDANT Height 170.2 cm (5' 7) 08/22/2021 10:5 5 AM HOTEL VALET ATTENDANT Body Mass Index 39.06 08/22/2021 10:55 AM HOTEL VALET ATTENDANT Plan of Treatment Health Maintenance Due Date [...] 2022 Dexa Scan (General) 2022 COVID-19 Vaccine ( - 2023-2 5 season) 2025 Influenza Adult (#1) 2025 Hepatitis A Vaccines Aged Out No long er eligible based on patient's age to complete this topic Meningococcal B Vaccine Aged Out No l onger eligible based on patient's age to complete this topic Meningococcal Vaccine Aged Out No thomas fredy eligible based on patient's age to complete this topic RSV Immunizations Under 20 Months Aged Out No longer eligible based on patient's age to complete this topic Insurance [employer] Care Teams Dredge Operator Supervisor Relationship Specialty Start Date End Date Navin Sainz MD [address] [address] PCP - General FAMILY PRACTICE 02/20/21
== END 2025-06-09 13:45 | disposition home or self-care (01) ==
PROVIDERS: PCP Family Medicine Adolescent Medicine; Visit Provider Physician Assistant
DX: R13.10 Dysphagia, unspecified (principal)
CPT/HCPCS: 74230; 92611

== ENCOUNTER 2025-06-28 13:28 | Outpatient (CLI) | payer MEDICARE, SELFPAY ==
[2025-06-28 14:18] LABS: Hematocrit 36.5 % (37.0-47.0); Hemoglobin 11.9 g/dL (12.0-15.0); Mean Corpuscular HGB Conc 32.6 g/dl (32-36); Mean Corpuscular Hemoglobin 30.3 pg (26-34); Mean Corpuscular Volume 92.9 fl (80-100); Platelet Count Result 182 k/mm3 (150-375); Red Blood Count 3.93 M/mm3 (4.2-5.4); White Blood Count 6.5 K/mm3 (4.5-10.0)
[2025-06-28 14:33] LABS: Albumin Level 4.3 g/dL (3.5-5.1); Anion Gap 7 mmol/L (4-12); Blood Urea Nitrogen 19 mg/dL (7-17); Calcium 9.3 mg/dL (8.4-10.2); Carbon Dioxide 32 mmol/L (22-30); Chloride 104 mmol/L (98-107); Estimated Glomerular Filt Rate 56; Glucose 135 mg/dL (65-110); Potassium 3.9 mmol/L (3.4-5.0); Sodium 143 mmol/L (137-145)
[2025-06-28 14:42] LABS: Total Protein Urine Random 8 mg/dL; Ur Ttl Prot Creatinine Ratio 0.06 mg/mg (0-0.20)
[2025-06-28 14:43] LABS: Parathyroid Intact 46.6 pg/mL (14.5-75.2)
--- OUTSIDE RECORDS SUMMARY | 2025-06-28 15:01 | XMS_ITS | Clinical Summary ---
Author Organization [facility] Address [address] [place] [address] Care Team Providers Care Psychological Assistant Name Role Phone Navin Sainz MD Primary Care Provider + Source Comments [facility],non-owned Affiliates and Associated Physician Practices is amultiple site organization consisting of ambulatory clinics and hospital sitesin [place], [place], [place] and [place]. This disclosure is being madepursuant to the Care Everywhere program and may not contain all information available regarding this patient. 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
--- OUTSIDE RECORDS SUMMARY | 2025-06-28 15:01 | XMS_ITS | Clinical Summary ---
Author Organization [facility] Address [address] [place] [address] Care Team Providers Care Aerobics Teacher Name Role Phone Navin Sainz MD Primary Care Provider +1- [phone] Allergies Active Allergy Reactions Criticality Noted Date [...] Comments Blood Pressure 156/100 08/22/2021 10:55 AM NURSING PROFESSOR Pulse 72 08/22/2021 10:55 AM NURSING PROFESSOR Temperature - - Respiratory Rate 20 08/22/2021 10:5 5 AM NURSING PROFESSOR Oxygen Saturation 92% 05/16/2021 3:04 PM CDT Inhaled Oxygen Concentration - - Weight 113.1 kg (249 lb 6.4 oz) 021 10:55 AM NURSING PROFESSOR Height 170.2 cm (5' 7) 08/22/2021 10:5 5 AM NURSING PROFESSOR Body Mass Index 39.06 08/22/2021 10:55 AM NURSING PROFESSOR Plan of Treatment Health Maintenance Due Date [...] Scan (General) 2022 COVID-19 Vaccine ( - 2024-2 6 season) 2025 Influenza Adult (#1) 2025 Hepatitis [...] topic Insurance [employer] Care Teams Aerobics Teacher Relationship Specialty Start Date End Date Navin Sainz MD [address] [address] PCP - General FAMILY PRACTICE 02/20/21
--- OUTSIDE RECORDS SUMMARY | 2025-06-28 15:01 | XMS_ITS | Clinical Summary ---
Author Organization [facility] [address] Address [address] [place] [address] Care Team Providers Care Keno Terminal Operator Name Role Phone Navin Sainz MD [...] (three) times a day 10/12/2020 Active vit C,P-Ki-tuxqi-lut ein-zeaxan 250-90-40-1 mg capsule Take by mouth Active hvgjnyzp-bbq-AU- lycopen-lutein 0.4-300-250 mg-mcg-mcg tabletIndication s:Vitamin Deficiency Prevention [...] 1 TABLET EVERY DAY 90 tablet 3 05/23/2025 Active metoprolol tartrate (LOPRESSOR) 25 mg immediate release tabletIndication s:Sinus tachycardia,PVC' s (premature ventricular contractions) TAKE 1 TABLET TWICE DAILY 180 tablet 3 05/23/2025 Active Active Problems Problem Noted Date Diagnosed Date Bilateral lower extremity edema 01/10/2025 Morbid (severe) obesity due to excess calories 0 03/25/2022 Body mass index 40.0-44.9, adult ([facility]) 03/25 Stage 2 chronic kidney disease [...] 021 Surgical History Surgery Date Site/Laterality Comments [place] APPENDECTOMY Appendectomy - (Added by TW Conv) [place] LIG/TRNSXJ FLP TUBE ABDL/ VAG [...] on file 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
== END 2025-06-28 13:29 | disposition home or self-care (01) ==
LOC: ANHLAB 13:30
PROVIDERS: PCP Family Medicine Adolescent Medicine; Visit Provider Internal Medicine Nephrology
DX: N18.31 Chronic kidney disease, stage 3a (principal)
CPT/HCPCS: 36415; 80069; 82570; 83970; 84156; 85027